=== PATIENT | female | born 1990 ===

== ENCOUNTER → 2020-08-26 15:04 | Outpatient (BNVA) | payer OTHER, SELFPAY | PROVIDERS: PCP Internal Medicine; Visit Provider Advanced Practice Midwife | DX: Z34.90 Encounter for supervision of normal pregnancy, unspecified, unspecified trimester (principal) | CPT/HCPCS: 81025; 99211 ==

== ENCOUNTER 2020-09-07 12:19 | Emergency (ER) | payer OTHER, SELFPAY ==
--- NOTE | 2020-09-07 14:37 | ED.PREGNANCY ---
HPI - General Chief complaint: Nausea/Vomiting/Diarrhea Stated complaint: vomiting - 7 wks preg Time Seen by Provider: 09/07/20 14:37 Source: patient Mode of arrival: ambulatory Limitations: no limitations History of Present Illness MD Complaint: other (nausea and vomiting) Onset (ago): week(s) Pain Consistency: intermittent Severity: moderate Relieving factors: none Exacerbating factors: none Associated symptoms: nausea and vomiting Vaginal discharge: none Vaginal bleeding: none Patient : Yes Number of Weeks : 7 OB History - Previous Pregnancies: hyperemesis care: followed by OB Related Data : 4 Para: 2 Previous Rx's Medication Instructions Recorded doxylamine succinate 25 mg PO .BID PRN #30 tab 09/07/20 promethazine 25 mg PO Q6H PRN #30 tab 09/07/20 pyridoxine (vitamin B6) 25 mg PO BID PRN #60 tab 09/07/20 Allergies Allergy/AdvReac Type Severity Reaction Status Date / Time latex [LATEX] Allergy Unknown SWELLING Unverified 08/04/20 18:38 Latex Allergy Unknown swelling Uncoded 06/02/19 00:00 Review of Systems Review of Systems: Constitutional : No Fever, No Chills ENT/Mouth : No sore throat, No Rhinorrhea Eyes: No Eye Pain, No Redness Cardiovascular : No Chest Pain, No SOB Respiratory : No Cough, No Sputum, No Wheezing Gastrointestinal : positive Nausea, pos Vomiting, No Diarrhea, no abdominal pain, Genitourinary : no irregular bleeding, No Dysuria, No Urinary Frequency, no pelvic pain Musculoskeletal : No Myalgias Skin : No rash Neuro : No Weakness, No Headache Psych : No Anxiety/Panic, No Depression All other systems reviewed and are negative [facility] Past Medical History Medical History (Updated 09/07/20 @ 15:59 by Pepper Molina DO) Hyperemesis gravidarum before end of 22 week gestation with carbohydrate depletion No known health problems : 4 Para: 2 Social History Social History (Updated 09/07/20 @ 15:02 by Pepper Molnia DO) Smoking Status: Former smoker Smoked in Last 30 Days: No Advance Directives: No Advance Directives Information Provided: Yes Physical Exam Vital Signs: Vital Signs: Vital Signs Temp Pulse Resp BP Pulse Ox 09/07/20 15:36 98.7 F 80 1 L 97/43 L 97 09/07/20 14:50 98.5 F 74 18 109/56 L 99 Body Mass Index 32.8 Appearance: Alert. Oriented X3. No acute distress. Eyes: Pupils equal, round and reactive to light. ENT: Pharynx normal. Neck: Normal inspection. Neck supple. CVS: Normal heart rate and rhythm. Pulses normal. Respiratory: No respiratory distress. Breath sounds normal. Abdomen: Soft and nontender. Skin: Skin warm and dry. Normal skin color. Normal skin turgor. Extremities: No lower extremity edema. No calf ttp Neuro: Oriented X 3. No motor deficit. No sensory deficit. Procedures Perimortem Number of Weeks : 7 MDM - OB/Uterine Contractions MDM Narrative Medical decision making narrative: 29 yo female 7 weeks no vaginal bleeding here with vomiting - prior pregnancies she had hyperemesis as well, not on any anti emetics at this time will obtain labs, lytes, hydrate x 2L given reglan and benadryl dispo per results and workup Lab Data Result diagrams: 09/07/20 15:01 09/07/20 15:01 Labs: Lab Results 09/07/20 09/07/20 09/07/20 Range/Units 15:01 15:01 15:01 WBC 8.1 (4.8-10.8) X10*3/uL RBC 4.61 (4.20-5.50) X10*6/uL Hgb 13.1 (12.0-16.0) g/dl Hct 38.7 (37-47) % MCV 83.9 (80-98) fL MCH 28.4 (27.0-33.0) pg MCHC 33.9 (31.0-35.0) g/dl RDW 12.7 (11.0-16.0) % Plt Count 362 (160-400) X10*3/uL MPV 9.6 (9.4-12.3) fL Immature Gran % (Auto) 0.5 H (0.0-0.4) % Neut % (Auto) 67.2 (45-73) % Lymph % (Auto) 23.7 (20-40) % [place] % (Auto) 7.4 (2-11) % Eos % (Auto) 1.0 (0-4) % Baso % (Auto) 0.2 (0-2) % Lymph # (Auto) 1.9 (1.2-4.9) X10*3/uL [place] # (Auto) 0.6 (0.1-1.2) X10*3/uL Eos # (Auto) 0.1 (0.0-0.4) X10*3/uL Baso # (Auto) 0.0 (0.0-0.2) X10*3/uL Abs Immat Gran (auto) 0.04 H (0.00-0.03) X10*3/uL Absolute Neuts (auto) 5.5 (2.0-8.3) X10*3/uL Absolute Nucleated RBC 0.000 (0.0-0.012) X10*3/uL Nucleated RBC % (auto) 0.0 (0.0-0.2) /100WBC Hold Blue Top SEE NOTE Sodium 135 (135-145) mmol/L Potassium 3.8 (3.3-5.1) mmol/l Chloride 102 (96-108) mmol/L Carbon Dioxide 25 (22-29) mmol/L Anion Gap 12 (12-20) BUN 10 (9-16) mg/dL Creatinine 0.64 (0.5-1.4) mg/dL Estim Creat Clear Calc 135.5 Estimated GFR > 60 Random Glucose 73 (60-115) mg/dL Calcium 8.6 (8.4-10.2) mg/dL Magnesium 2.1 (1.6-2.6) mg/dL Total Bilirubin 1.2 H (0.0-1.0) mg/dL Direct Bilirubin 0.4 (0.0-0.5) mg/dL AST 17 (5-31) U/L ALT 16 (0-31) U/L Alkaline Phosphatase 58 (39-117) U/L Total Protein 6.8 (6.5-8.0) g/dL Albumin 3.8 (3.5-5.0) g/dL Lipase 11 (8-78) U/L Beta HCG, Quant 00459 mIU/mL Urine Color Urine Appearance Urine pH (5.0-8.0) Ur Specific [place] (1.005-1.025) Urine Protein (NEG-TRACE) MG/DL Urine Glucose (UA) (NEG) MG/DL Urine Ketones (NEG) MG/DL Urine Blood (NEG) Urine Nitrite (NEG) Ur Leukocyte Esterase (NEG) 09/07/20 Range/Units 15:44 WBC (4.8-10.8) X10*3/uL RBC (4.20-5.50) X10*6/uL Hgb (12.0-16.0) g/dl Hct (37-47) % MCV (80-98) fL MCH (27.0-33.0) pg MCHC (31.0-35.0) g/dl RDW (11.0-16.0) % Plt Count (160-400) X10*3/uL MPV (9.4-12.3) fL Immature Gran % (Auto) (0.0-0.4) % Neut % (Auto) (45-73) % Lymph % (Auto) (20-40) % [place] % (Auto) (2-11) % Eos % (Auto) (0-4) % Baso % (Auto) (0-2) % Lymph # (Auto) (1.2-4.9) X10*3/uL [place] # (Auto) (0.1-1.2) X10*3/uL Eos # (Auto) (0.0-0.4) X10*3/uL Baso # (Auto) (0.0-0.2) X10*3/uL Abs Immat Gran (auto) (0.00-0.03) X10*3/uL Absolute Neuts (auto) (2.0-8.3) X10*3/uL Absolute Nucleated RBC (0.0-0.012) X10*3/uL Nucleated RBC % (auto) (0.0-0.2) /100WBC Hold Blue Top Sodium (135-145) mmol/L Potassium (3.3-5.1) mmol/l Chloride (96-108) mmol/L Carbon Dioxide (22-29) mmol/L Anion Gap (12-20) BUN (9-16) mg/dL Creatinine (0.5-1.4) mg/dL Estim Creat Clear Calc Estimated GFR Random Glucose (60-115) mg/dL Calcium (8.4-10.2) mg/dL Magnesium (1.6-2.6) mg/dL Total Bilirubin (0.0-1.0) mg/dL Direct Bilirubin (0.0-0.5) mg/dL AST (5-31) U/L ALT (0-31) U/L Alkaline Phosphatase (39-117) U/L Total Protein (6.5-8.0) g/dL Albumin (3.5-5.0) g/dL Lipase (8-78) U/L Beta HCG, Quant mIU/mL Urine Color YELLOW Urine Appearance CLEAR Urine pH 6.0 (5.0-8.0) Ur Specific [place] >= 1.030 H (1.005-1.025) Urine Protein NEG (NEG-TRACE) MG/DL Urine Glucose (UA) NEG (NEG) MG/DL Urine Ketones >=80 (NEG) MG/DL Urine Blood TRACE (NEG) Urine Nitrite NEG (NEG) Ur Leukocyte Esterase NEG (NEG) Discharge Plan Discharge Clinical Impression: Hyperemesis gravidarum Patient Disposition: Home, Self-Care Instructions: Hyperemesis Gravidarum (ED) Prescriptions: New pyridoxine (vitamin B6) 25 mg tablet 25 mg PO BID PRN (Reason: nausea vomiting) Qty: 60 RF: 0 doxylamine succinate 25 mg tablet 25 mg PO .BID PRN (Reason: nausea and vomiting) Qty: 30 RF: 0 promethazine 25 mg tablet 25 mg PO Q6H PRN (Reason: nausea and vomiting) Qty: 30 RF: 0 Referrals: Physician,None [Primary Care Provider] - 2 days (follow up with your OB) Stand Alone Forms: Work/School Release
[2020-09-07 14:50] VITALS: BP 109/56; PULSE 74; RESP 18; TEMP 36.9; O2SAT 99; BMI 32.8
[2020-09-07 15:05] LABS: MANUAL DIFF FLAG NO
[2020-09-07] MEDS: 0.9 % Sodium Chloride 1,000 ML 999 ML IVCONT ×2 (15:07)
[2020-09-07] MEDS: diphenhydrAMINE HCL 50 MG/ML VIAL 25 MG IVPUSH (15:07)
[2020-09-07] MEDS: Metoclopramide HCl 10 MG/2 ML VIAL 5 MG IVPUSH (15:07)
[2020-09-07 15:08] LABS: Basophils Percent Auto 0.2 % (0-2); Eosinophils Absolute Auto 0.1 X10*3/uL (0.0-0.4); Hematocrit 38.7 % (37-47); Hemoglobin 13.1 g/dl (12.0-16.0); Imm Gran Abs Auto 0.04 X10*3/uL (0.00-0.03); Imm Gran Pct Auto 0.5 % (0.0-0.4); Lymphocytes Absolute Auto 1.9 X10*3/uL (1.2-4.9); Lymphocytes Percent Auto 23.7 % (20-40); Mean Corpuscular HGB Conc 33.9 g/dl (31.0-35.0); Mean Corpuscular Hemoglobin 28.4 pg (27.0-33.0); Mean Corpuscular Volume 83.9 fL (80-98); Mean Platelet Volume 9.6 fL (9.4-12.3); Monocytes Absolute Auto 0.6 X10*3/uL (0.1-1.2); Monocytes Percent Auto 7.4 % (2-11); Neutrophils Absolute Auto 5.5 X10*3/uL (2.0-8.3); Neutrophils Percent Auto 67.2 % (45-73); Platelet Count 362 X10*3/uL (160-400); Red Blood Count 4.61 X10*6/uL (4.20-5.50); Red Cell Distribution Width 12.7 % (11.0-16.0); White Blood Count 8.1 X10*3/uL (4.8-10.8)
[2020-09-07 15:33] LABS: Alanine Aminotransferase 16 U/L (0-31); Albumin Level 3.8 g/dL (3.5-5.0); Alkaline Phosphatase 58 U/L (39-117); Anion Gap 12 (12-20); Aspartate Amino Transferase 17 U/L (5-31); Bilirubin Direct 0.4 mg/dL (0.0-0.5); Bilirubin Total 1.2 mg/dL (0.0-1.0); Blood Urea Nitrogen 10 mg/dL (9-16); Calcium 8.6 mg/dL (8.4-10.2); Carbon Dioxide 25 mmol/L (22-29); Chloride 102 mmol/L (96-108); Creatinine Clr Calc Pharmacy 135.5; Estimated Glomerular Filt Rate > 60; Glucose Random 73 mg/dL (60-115); Lipase 11 U/L (8-78); Magnesium 2.1 mg/dL (1.6-2.6); Potassium 3.8 mmol/l (3.3-5.1); Sodium 135 mmol/L (135-145); Total Protein 6.8 g/dL (6.5-8.0)
[2020-09-07 15:36] VITALS: BP 97/43; PULSE 80; RESP 1; TEMP 37.1; O2SAT 97
[2020-09-07 16:04] LABS: Glucose Urine UA NEG (NEG); Leukocyte Esterase Urine NEG (NEG); Nitrite Urine NEG (NEG); Specific Gravity - Urine >= 1.030 (1.005-1.025); Urine Blood TRACE (NEG); Urine Ketones >=80 MG/DL (NEG); Urine Protein NEG (NEG-TRACE)
[2020-09-07 16:07] LABS: Appearance Urine CLEAR; Color Urine YELLOW
[2020-09-07 16:07] LABS: HCG Quantitative 41370 mIU/mL
[2020-09-07 16:15] LABS: RBC Urine 0-2 /HPF (0); WBC Urine 0 /HPF (0-4)
[2020-09-07 16:16] LABS: Bacteria Urine TRACE /LPF; Squamous Epithelial Cell Urine 1+ /LPF
[2020-09-07 17:46] VITALS: BP 99/41; PULSE 80; RESP 16; TEMP 37; O2SAT 99
== END 2020-09-07 18:12 | disposition home or self-care (01) ==
PROVIDERS: Emergency Provider Emergency Medicine
DX: O21.0 Mild hyperemesis gravidarum (principal); Z3A.01 Less than 8 weeks gestation of pregnancy
CPT/HCPCS: 36415; 80048; 80076; 81001; 81003; 83690; 83735; 84702; 85025; 96361; 96374; 96375; 99284; J1200; J2765

== ENCOUNTER → 2020-09-27 10:11 | Outpatient (BNVA) | payer OTHER, SELFPAY | PROVIDERS: Visit Provider Advanced Practice Midwife | DX: Z76.89 Persons encountering health services in other specified circumstances (principal) ==

== ENCOUNTER 2020-10-07 12:44 | Outpatient (REF) | payer OTHER, SELFPAY ==
--- NOTE | 2020-10-07 13:02 | US_ITS ---
EXAMINATION: OBSTETRICAL ULTRASOUND, FIRST TRIMESTER HISTORY: 30-year-old at 12.0 weeks of gestation NT screening COMPARISON: None in this TECHNIQUE: Real time transabdominal imaging with color and M-mode Doppler. FINDINGS: A single, live IUP CRL of 56.7 mm c/w 12.2wks is noted. Heart Rate: 160 beats per minute. Normal yolk sac seen. NT was 1.1.mm. NB Present The embryo appears sonographically wnl for this GA. Both maternal ovaries are seen and appear normal. GESTATIONAL AGE: 1. Established GA: 12.0 wks 2. GA from [facility]: 12.2 wks ESTIMATED DATE OF DELIVERY: 1. Established [facility]OD[facility]: 04/21/2021 2. [facility]UN from [facility]: 04/19/2021 US/US OB 1T nuc measure IMPRESSION: 1. Single live IUP 2. Size equals dates 3. Normal nuchal translucency MFM Consultation: I reviewed the ultrasound findings along with significance of NT measurement. The NT of less than 3mm is generally reassuring. However, the sensitivity for T21 detection is only 60%. I reviewed the availability of serum aneuploidy screening which includes cell-free DNA and placental protein based tests. I discussed the sensitivity, false-positive rate, and other limitations associated with each test. I also reviewed the availability of invasive diagnostic tests that are associated small but definite risk of miscarriage. We also reviewed the differences between screening tests and diagnostic tests. After our discussion, she opted for the First trimester screening that is based on cell-free DNA or non-invasive testing (NIPT). The result will be faxed to your office in approximately 7 days. A follow up at 18 weeks for survey has been scheduled. Thank you very much for this referral. Majority of this visit was spent reviewing her care and counselling her in face to face time: Time spent 20 min.
== END 2020-10-07 12:45 | disposition home or self-care (01) ==
LOC: HO.US 12:44
PROVIDERS: Visit Provider Advanced Practice Midwife
DX: O09.299 Supervision of pregnancy with other poor reproductive or obstetric history, unspecified trimester (principal); Z13.31 Encounter for screening for depression; Z86.32 Personal history of gestational diabetes
CPT/HCPCS: 76813; 90686

== ENCOUNTER 2020-10-07 13:51 | Outpatient (REF) | payer OTHER, SELFPAY ==
[2020-10-07 14:46] LABS: Basophils Percent Auto 0.2 % (0-2); Eosinophils Absolute Auto 0.1 X10*3/uL (0.0-0.4); Eosinophils Percent Auto 1.4 % (0-4); Hematocrit 36.2 % (37-47); Imm Gran Abs Auto 0.05 X10*3/uL (0.00-0.03); Imm Gran Pct Auto 0.6 % (0.0-0.4); Lymphocytes Absolute Auto 1.7 X10*3/uL (1.2-4.9); Lymphocytes Percent Auto 20.2 % (20-40); MANUAL DIFF FLAG NO; Mean Corpuscular HGB Conc 33.1 g/dl (31.0-35.0); Mean Corpuscular Volume 84.6 fL (80-98); Mean Platelet Volume 9.7 fL (9.4-12.3); Monocytes Absolute Auto 0.6 X10*3/uL (0.1-1.2); Neutrophils Absolute Auto 6.1 X10*3/uL (2.0-8.3); Neutrophils Percent Auto 70.6 % (45-73); Platelet Count 327 X10*3/uL (160-400); Red Blood Count 4.28 X10*6/uL (4.20-5.50); White Blood Count 8.6 X10*3/uL (4.8-10.8)
[2020-10-07 15:41] LABS: Syphilis Screen Nonreactive (Nonreactive)
[2020-10-08 09:12] LABS: Rubella IgG Antibody 3.02 index
[2020-10-08 13:53] LABS: CT PCR NOT DETECTED (Not Detect.); NG PCR NOT DETECTED (Not Detect.)
[2020-10-08 14:37] LABS: Toxoplasma IgG Antibody <7.20 IU/mL; Toxoplasma IgM Antibody <8.00 AU/mL
[2020-10-10 08:11] LABS: HBsAGNum1 0.14 S/CO (0.00-0.99); Hepatitis B Surface Antigen Negative (Negative)
[2020-10-10 08:31] LABS: HIV AB/AG Nonreactive (Nonreactive); HIV Num 1 0.11 S/CO (0.00-0.99); ~HepC Num1 0.07 S/CO (0.00-0.79); ~Hepatitis C Antibody Nonreactive (Nonreactive)
== END 2020-10-07 13:52 | disposition home or self-care (01) ==
LOC: HO.LAB 13:51
PROVIDERS: Advanced Practice Midwife; Visit Provider Obstetrics & Gynecology Maternal & Fetal Medicine
DX: Z34.90 Encounter for supervision of normal pregnancy, unspecified, unspecified trimester (principal)
CPT/HCPCS: 36415; 85025; 86762; 86777; 86778; 86780; 86787; 86803; 86850; 86886; 86900; 86901; 87340; 87389; 87491; 87591; 88142

== ENCOUNTER 2020-10-24 20:05 | Emergency (ER) | payer OTHER, SELFPAY ==
[2020-10-24 20:15] VITALS: BP 136/75; PULSE 84; RESP 16; TEMP 36.6; O2SAT 99; BMI 32.8
--- NOTE | 2020-10-24 21:13 | ED.NAVMDI ---
HPI - Nausea/Vomiting/Diarrhea General Chief complaint: Nausea/Vomiting/Diarrhea Stated complaint: Vomiting/15 weeks preg Time Seen by Provider: 10/24/20 21:12 Source: patient Mode of arrival: ambulatory Limitations: no limitations History of Present Illness HPI Narrative: patient is 15 weeks with hyperemesis gravidarum been here last month for vomiting , this time vomiting for last 2 days unable to hold down anything urinated only 2 times today complaining of diffuse abdominal discomfort no vaginal bleeding no urinary complaints Related Data Home Medications Medication Instructions Recorded Confirmed prenat.vits,elsa,jwd-hlbb-vtpor 1 tab PO DAILY 09/27/20 09/27/20 Previous Rx's Medication Instructions Recorded doxylamine succinate 25 mg PO .BID PRN #30 tab 09/07/20 pyridoxine (vitamin B6) 25 mg PO BID PRN #60 tab 09/07/20 promethazine 25 mg tablet 25 mg PO Q6H PRN #30 tab 09/29/20 Allergies Allergy/AdvReac Type Severity Reaction Status Date / Time latex [LATEX] Allergy Unknown SWELLING Verified 10/07/20 14:58 Review of Systems Review of Systems: REVIEW OF SYSTEMS: Pertinent positives and negatives are stated above in the history. GEN: no fevers, chills, fatigue HEENT: no nasal congestion, sore throat, ear pain NEURO: no headache, dizziness, focal weakness PULM: no cough, shortness of breath CV: no chest pain, palpitations, LE edema ABD: no abdominal pain, , diarrhea : no dysuria, urgency, frequency SKIN: no rash ROS otherwise negative x 10 PMFSH Past Medical History Medical History Hyperemesis gravidarum before end of 22 week gestation with carbohydrate depletion No known health problems Family History Family History Mother History of PCOS Hx of endometriosis Father Hx of colon cancer, stage II Brother No problems noted. Brother No problems noted. Sister No problems noted. Maternal Grandfather Hx of diabetes mellitus Maternal Grandmother Hx of diabetes mellitus Paternal Grandfather Hx of diabetes mellitus Paternal Grandmother Hx of diabetes mellitus Social History Social History Household Members: Spouse Alcohol intake: never Smoking Status: Former smoker Smoked in Last 30 Days: Yes Use of substances other than those prescribed or required for medical reasons: No Advance Directives: No Advance Directives Information Provided: Yes service: No Current occupational status: unemployed Current occupational exposures/hazards: No Physical Exam Vital Signs: Vital Signs: Last Vital Signs Temp 98.2 F 10/24/20 21:46 Pulse 73 10/24/20 22:00 Resp 18 10/24/20 22:00 BP 120/61 10/24/20 22:00 Pulse Ox 97 10/24/20 22:00 Body Mass Index 32.8 Appearance: Alert. Oriented X3. No acute distress. Eyes: Pupils equal, round and reactive to light. ENT: Pharynx normal. Neck: Normal inspection. Neck supple. CVS: Normal heart rate and rhythm. Pulses normal. Respiratory: No respiratory distress. Breath sounds normal. Abdomen: Soft . gravid uterus bowel sounds are present no focal tenderness Skin: Skin warm and dry. Normal skin color. Normal skin turgor. Extremities: No lower extremity edema. Good range of movement Neuro: Oriented X 3. No motor deficit. No sensory deficit. Course Reevaluation(s) Reevaluation #1: patient feeling much better now taking p.o. fluids labs are stable planning discharge patient perla urine negative for UTI MDM - Nausea/Vomiting/Diarrhea Lab Data Result diagrams: 10/24/20 21:57 10/24/20 21:57 Labs: Lab Results 10/24/20 10/24/20 10/24/20 Range/Units 21:57 21:57 23:49 WBC 11.0 H (4.8-10.8) X10*3/uL RBC 4.55 (4.20-5.50) X10*6/uL Hgb 12.8 (12.0-16.0) g/dl Hct 37.8 (37-47) % MCV 83.1 (80-98) fL MCH 28.1 (27.0-33.0) pg MCHC 33.9 (31.0-35.0) g/dl RDW 13.1 (11.0-16.0) % Plt Count 357 (160-400) X10*3/uL MPV 9.7 (9.4-12.3) fL Immature Gran % (Auto) 0.3 (0.0-0.4) % Neut % (Auto) 79.0 H (45-73) % Lymph % (Auto) 14.9 L (20-40) % [place] % (Auto) 4.9 (2-11) % Eos % (Auto) 0.6 (0-4) % Baso % (Auto) 0.3 (0-2) % Lymph # (Auto) 1.6 (1.2-4.9) X10*3/uL [place] # (Auto) 0.5 (0.1-1.2) X10*3/uL Eos # (Auto) 0.1 (0.0-0.4) X10*3/uL Baso # (Auto) 0.0 (0.0-0.2) X10*3/uL Abs Immat Gran (auto) 0.03 (0.00-0.03) X10*3/uL Absolute Neuts (auto) 8.7 H (2.0-8.3) X10*3/uL Absolute Nucleated RBC 0.000 (0.0-0.012) X10*3/uL Nucleated RBC % (auto) 0.0 (0.0-0.2) /100WBC Sodium 138 (135-145) mmol/L Potassium 4.2 (3.3-5.1) mmol/l Chloride 102 (96-108) mmol/L Carbon Dioxide 24 (22-29) mmol/L Anion Gap 16 (12-20) BUN 7 L (9-16) mg/dL Creatinine 0.56 (0.5-1.4) mg/dL Estim Creat Clear Calc 153.4 Estimated GFR > 60 Random Glucose 78 (60-115) mg/dL Calcium 9.0 (8.4-10.2) mg/dL Total Bilirubin 0.4 (0.0-1.0) mg/dL Direct Bilirubin 0.2 (0.0-0.5) mg/dL AST 19 (5-31) U/L ALT 9 (0-31) U/L Alkaline Phosphatase 50 (39-117) U/L Total Protein 7.0 (6.5-8.0) g/dL Albumin 3.7 (3.5-5.0) g/dL Lipase 45 (8-78) U/L Urine Color DARK YELLOW Urine Appearance HAZY Urine pH 7.0 (5.0-8.0) Ur Specific [place] 1.020 (1.005-1.025) Urine Protein NEG (NEG-TRACE) MG/DL Urine Glucose (UA) NEG (NEG) MG/DL Urine Ketones >=80 (NEG) MG/DL Urine Blood TRACE (NEG) Urine Nitrite NEG (NEG) Ur Leukocyte Esterase NEG (NEG) Urine RBC 15-29 H (0) /HPF Urine WBC 0-2 (0-4) /HPF Ur Squamous Epith Cells 2+ /LPF Urine Bacteria 2+ /LPF Urine Mucus 3+ /LPF Discharge Plan Discharge Prescriptions: No Action pyridoxine (vitamin B6) 25 mg tablet 25 mg PO BID PRN (Reason: nausea vomiting) Qty: 60 RF: 0 doxylamine succinate 25 mg tablet 25 mg PO .BID PRN (Reason: nausea and vomiting) Qty: 30 RF: 0 prenat.vits,elsa,vjx-hdvz-buhxw Tablet 1 tab PO DAILY RF: 0 promethazine 25 mg tablet 25 mg PO Q6H PRN (Reason: nausea and vomiting) Qty: 30 RF: 0
[2020-10-24 21:46] VITALS: BP 122/81; PULSE 86; RESP 18; TEMP 36.8; O2SAT 98
[2020-10-24 22:00] VITALS: BP 120/61; PULSE 73; RESP 18; O2SAT 97
[2020-10-24] MEDS: 0.9 % Sodium Chloride 1,000 ML 999 ML IVCONT (22:00)
[2020-10-24 22:02] LABS: MANUAL DIFF FLAG NO
[2020-10-24 22:03] LABS: Basophils Percent Auto 0.3 % (0-2); Eosinophils Absolute Auto 0.1 X10*3/uL (0.0-0.4); Eosinophils Percent Auto 0.6 % (0-4); Hematocrit 37.8 % (37-47); Hemoglobin 12.8 g/dl (12.0-16.0); Imm Gran Abs Auto 0.03 X10*3/uL (0.00-0.03); Imm Gran Pct Auto 0.3 % (0.0-0.4); Lymphocytes Absolute Auto 1.6 X10*3/uL (1.2-4.9); Lymphocytes Percent Auto 14.9 % (20-40); Mean Corpuscular HGB Conc 33.9 g/dl (31.0-35.0); Mean Corpuscular Hemoglobin 28.1 pg (27.0-33.0); Mean Corpuscular Volume 83.1 fL (80-98); Mean Platelet Volume 9.7 fL (9.4-12.3); Monocytes Absolute Auto 0.5 X10*3/uL (0.1-1.2); Monocytes Percent Auto 4.9 % (2-11); Neutrophils Absolute Auto 8.7 X10*3/uL (2.0-8.3); Platelet Count 357 X10*3/uL (160-400); Red Blood Count 4.55 X10*6/uL (4.20-5.50); Red Cell Distribution Width 13.1 % (11.0-16.0)
[2020-10-24] MEDS: ondansetron HCL 4 MG/2 ML VIAL IVPUSH (22:03)
--- NOTE | 2020-10-24 22:05 | PC.NURSE ---
pt is aware we need a urine sample. ivf infusing and waiting for need to void.
[2020-10-24 22:34] LABS: Alanine Aminotransferase 9 U/L (0-31); Albumin Level 3.7 g/dL (3.5-5.0); Alkaline Phosphatase 50 U/L (39-117); Anion Gap 16 (12-20); Aspartate Amino Transferase 19 U/L (5-31); Bilirubin Direct 0.2 mg/dL (0.0-0.5); Bilirubin Total 0.4 mg/dL (0.0-1.0); Blood Urea Nitrogen 7 mg/dL (9-16); Carbon Dioxide 24 mmol/L (22-29); Chloride 102 mmol/L (96-108); Creatinine Clr Calc Pharmacy 153.4; Estimated Glomerular Filt Rate > 60; Glucose Random 78 mg/dL (60-115); Lipase 45 U/L (8-78); Potassium 4.2 mmol/l (3.3-5.1); Sodium 138 mmol/L (135-145)
[2020-10-25] VITALS: BP 113/59; PULSE 76; RESP 18; TEMP 36.8; O2SAT 98
[2020-10-25 00:01] LABS: Glucose Urine UA NEG (NEG); Leukocyte Esterase Urine NEG (NEG); Nitrite Urine NEG (NEG); Urine Blood TRACE (NEG); Urine Ketones >=80 MG/DL (NEG); Urine Protein NEG (NEG-TRACE)
[2020-10-25 00:02] LABS: Appearance Urine HAZY; Color Urine DARK YELLOW
[2020-10-25 00:07] LABS: Bacteria Urine 2+ /LPF; Squamous Epithelial Cell Urine 2+ /LPF; WBC Urine 0-2 /HPF (0-4)
[2020-10-25 00:08] LABS: Mucus Urine 3+ /LPF
== END 2020-10-25 01:41 | disposition home or self-care (01) ==
PROVIDERS: Emergency Provider Internal Medicine
DX: O21.1 Hyperemesis gravidarum with metabolic disturbance (principal); Z3A.15 15 weeks gestation of pregnancy
CPT/HCPCS: 36415; 80048; 80076; 81001; 81003; 83690; 85025; 96361; 96374; 99284; J2405

== ENCOUNTER → 2020-11-04 10:50 | Outpatient (BNVA) | payer OTHER, SELFPAY | PROVIDERS: Visit Provider Advanced Practice Midwife | DX: Z76.89 Persons encountering health services in other specified circumstances (principal) ==

== ENCOUNTER 2020-11-25 13:16 | Outpatient (REF) | payer OTHER, SELFPAY ==
--- NOTE | 2020-11-25 13:20 | US_ITS ---
EXAMINATION: US OBSTETRICAL CLINICAL INFORMATION: 30-year-old at 19.0 weeks of gestation Suspected anomaly COMPARISON: 10/07/2020 TECHNIQUE: Real-time transabdominal ultrasound was performed using C1-5 megahertz transducer. FINDINGS: A single, active, fetus is seen in transverse presentation. The placenta is posterior without previa, and the amniotic fluid volume is wnl. MEASUREMENTS: 1. Biparietal Diameter: 4.2 cm; 18.6 wks 2. Occipital Frontal Diameter: 5.8 cm 3. Head Circumference: 16.3 cm; 19.1 wks 4. Abdominal Circumference: 14.6 cm; 20.0 wks 5. Femur Length: 3.2 cm; 19.6 wks 6. Humerus Length: 3.1 cm; 20.1 wks 7. Tibia Length: 2.7 cm; 19.4 wks 8. Ulna Length: 2.8 cm; 20.4 wks 9. Lateral ventricle: 0.6 cm 10. Cerebellum: 1.9 cm; 19.6 wks 11. Cisterna Magna: 0.4 cm 12. Nuchal Fold: 2.6 mm 13. Heart Rate: 152 beats per minute Rt ovary: normal Lt ovary: normal Cervical length 3.8 cm on T/A. GESTATIONAL AGE: 1. Established GA: 19.0 wks 2. GA from [facility]: 19.4 wks ESTIMATED DATE OF DELIVERY: 1. Established ABIODUN: 04/21/2021 2. ABIODUN from [facility]: 04/17/2021 ANATOMY: The visualized anatomy includes but not limited to: 1. Cranium: Normal 2. Intracranial anatomy: cavum septum pellucidi, lateral ventricles, choroid plexus, cerebellum, posterior fossa, third and fourth ventricles. 3. face: orbits, lip/palate, profile, nasal bone 4. Heart: four-chamber view of the heart, ventricular septum, foramen ovale, pulmonary vein, left and right outflow tracts, three-vessel view, 3 vessel trachea view, aortic and ductal arches, situs.. 5. Diaphragm: Normal 6. Abdominal wall: Normal 7. Cord Insertion: Normal 8. Spine: Cervical, thoracic, lumbar, sacral. 9. Stomach: Normal size and shape 10. Right Kidney: Normal 11. Left Kidney: Normal 12. 3 vessel cord: Normal 13. Upper extremity: Open hands, fifth digit. 14. Lower extremity: Tibia, fibula, bilateral feet. 15. Bladder: Normal 16. Genitalia: US/US OB /maternal detail IMPRESSION: 1. Single, living, intrauterine with appropriate biometry. 2. Normal survey DISCUSSION: I reviewed today's ultrasound findings. We discussed the limitations of ultrasound in diagnosing aneuploidy and other congenital abnormalities. I reviewed the differences between screening test and diagnostic test. Amniocentesis was discussed and declined. She was informed that the baseline incidence of congenital abnormalities is approximately 3-5%. Not all these conditions are diagnosable in utero. RECOMMENDATIONS: Thank you for allowing me to participate in her care. Visiting time 20 (2,8,10) minutes. Majority of this visit was spent reviewing and discussing her care.
== END 2020-11-25 13:17 | disposition home or self-care (01) ==
LOC: HO.US 13:16
PROVIDERS: Visit Provider Advanced Practice Midwife
DX: O26.892 Other specified pregnancy related conditions, second trimester (principal); Z36.3 Encounter for antenatal screening for malformations; O35.9XX0 Maternal care for (suspected) fetal abnormality and damage, unspecified, not applicable or unspecified; Z3A.19 19 weeks gestation of pregnancy
CPT/HCPCS: 76811

== ENCOUNTER → 2020-12-02 12:20 | Outpatient (BNVA) | payer OTHER, SELFPAY | PROVIDERS: PCP Family Medicine; Visit Provider Advanced Practice Midwife | DX: Z13.89 Encounter for screening for other disorder (principal) | CPT/HCPCS: 99212 ==

== ENCOUNTER → 2020-12-15 13:47 | Outpatient (BNVA) | payer OTHER, SELFPAY | PROVIDERS: PCP Family Medicine; Visit Provider Advanced Practice Midwife | DX: O09.92 Supervision of high risk pregnancy, unspecified, second trimester (principal); O24.419 Gestational diabetes mellitus in pregnancy, unspecified control | CPT/HCPCS: 81003; 99212 ==

== ENCOUNTER → 2021-01-17 14:23 | Outpatient (BNVA) | payer OTHER, SELFPAY | PROVIDERS: PCP Family Medicine; Visit Provider Obstetrics & Gynecology | DX: O09.92 Supervision of high risk pregnancy, unspecified, second trimester (principal); O09.299 Supervision of pregnancy with other poor reproductive or obstetric history, unspecified trimester; Z86.32 Personal history of gestational diabetes | CPT/HCPCS: 81003; 99212 ==

== ENCOUNTER → 2021-01-31 14:47 | Outpatient (BNVA) | payer OTHER, SELFPAY | PROVIDERS: PCP Family Medicine; Visit Provider Advanced Practice Midwife | DX: Z34.93 Encounter for supervision of normal pregnancy, unspecified, third trimester (principal); Z3A.28 28 weeks gestation of pregnancy | CPT/HCPCS: 81003; 99212 ==

== ENCOUNTER → 2021-02-14 14:50 | Outpatient (BNVA) | payer OTHER, SELFPAY | PROVIDERS: PCP Family Medicine; Visit Provider Advanced Practice Midwife | DX: Z3A.30 30 weeks gestation of pregnancy (principal) | CPT/HCPCS: 81003; 99212 ==

== ENCOUNTER → 2021-03-09 13:29 | Outpatient (BNVA) | payer OTHER, SELFPAY | PROVIDERS: PCP Family Medicine; Visit Provider Advanced Practice Midwife | DX: Z34.93 Encounter for supervision of normal pregnancy, unspecified, third trimester (principal); Z3A.34 34 weeks gestation of pregnancy | CPT/HCPCS: 81003; 99212 ==

== ENCOUNTER 2021-03-17 14:35 | Outpatient (REF) | payer OTHER, SELFPAY ==
--- NOTE | ~2021-03-17 | US_ITS ---
EXAMINATION: OBSTETRICAL ULTRASOUND, Follow up HISTORY: 30-year-old at 35.0 weeks of gestation Unstable lie Size date discrepancy COMPARISON: 11/25/2020 TECHNIQUE: Real time transabdominal imaging with color and M-mode Doppler. PRESENTATION: Vertex PLACENTA LOCATION: Posterior without previa AMNIOTIC FLUID: MIGUEL 17.6 cm MEASUREMENTS: 1. Biparietal Diameter: 8.5 cm; 34.3 wks 2. Head Circumference: 32.52 cm; 36.6 wks 3. Abdominal Circumference: 30.2 cm; 34.1 wks 4. Femur Length: 6.7 cm; 34.3 wks 5. Heart Rate: 124 beats per minute WEIGHT: EFW: 2445 grams (5 lbs 6 oz) -- 33 %. BIOPHYSICAL PROFILE: Motion: 2 Tone: 2 Breathin Amniotic Fluid: 2 Total score: 8/8 GESTATIONAL AGE: 1. Established GA: 35.0 wks 2. GA from [facility]: 35.0 wks ESTIMATED DATE OF DELIVERY: 1. Established ABIODUN: 04/21/2021 2. ABIODUN from [facility]: 04/21/2020 US/US OB follow up IMPRESSION: 1. Single active fetus is in vertex presentation 2. Size equals dates 3. Reassuring biophysical profile Thank you very much for this referral. This note was generated with a voice recognition program. Please excuse any errors which may have been overlooked during my review of this note. Sometimes these errors may affect the content or meaning of a given sentence.
== END 2021-03-17 14:36 | disposition home or self-care (01) ==
LOC: HO.US 14:35
PROVIDERS: PCP Family Medicine; Visit Provider Advanced Practice Midwife
DX: O32.0XX0 Maternal care for unstable lie, not applicable or unspecified (principal); O26.843 Uterine size-date discrepancy, third trimester; Z3A.28 28 weeks gestation of pregnancy
CPT/HCPCS: 76816

== ENCOUNTER 2021-03-23 14:39 | Outpatient (REF) | payer OTHER, SELFPAY ==
[2021-03-24 09:54] LABS: CT PCR NOT DETECTED (Not Detect.); NG PCR NOT DETECTED (Not Detect.)
== END 2021-03-23 14:40 | disposition home or self-care (01) ==
LOC: HO.LAB 14:39
PROVIDERS: PCP Family Medicine; Visit Provider Advanced Practice Midwife
DX: Z34.93 Encounter for supervision of normal pregnancy, unspecified, third trimester (principal)
CPT/HCPCS: 87081; 87491; 87591; 99212

== ENCOUNTER → 2021-03-30 13:16 | Outpatient (BNVA) | payer OTHER, SELFPAY | PROVIDERS: PCP Family Medicine; Visit Provider Advanced Practice Midwife | DX: Z34.93 Encounter for supervision of normal pregnancy, unspecified, third trimester (principal); Z3A.37 37 weeks gestation of pregnancy | CPT/HCPCS: 81003; 99212 ==

== ENCOUNTER → 2021-04-06 13:20 | Outpatient (BNVA) | payer OTHER, SELFPAY | PROVIDERS: PCP Family Medicine; Visit Provider Advanced Practice Midwife | DX: Z34.93 Encounter for supervision of normal pregnancy, unspecified, third trimester (principal) | CPT/HCPCS: 81003; 99212 ==

== ENCOUNTER → 2021-05-12 10:30 | Outpatient (BNVA) | payer OTHER, SELFPAY | PROVIDERS: Visit Provider Obstetrics & Gynecology | DX: Z39.2 Encounter for routine postpartum follow-up (principal) | CPT/HCPCS: 99212 ==

== ENCOUNTER 2021-05-12 10:56 | Emergency (ER) | payer OTHER, SELFPAY ==
--- NOTE | ~2021-05-12 | CT_ITS ---
EXAMINATION: CT ANGIOGRAM OF THE CHEST WITH AND WITHOUT CONTRAST (CT PULMONARY ANGIOGRAM FOR PE) CLINICAL INFORMATION: Reason for Exam post dyspnea r/o PE COMPARISON: Previous chest x-ray May 2018 TECHNIQUE: Prior to contrast administration, noncontrast localization images were obtained. Subsequently, multidetector volumetric imaging was performed from the thoracic inlet to below the diaphragms following the administration of 65 mL Omnipaque 350 intravenous contrast. No contrast reaction reported Sagittal, coronal, and MIP oblique sagittal reformatted images were obtained on the CT workstation, uploaded to PACS, and reviewed. This CT examination was performed using dose optimization techniques as appropriate, variously including the following: *Automated exposure control *Adjustment of mA and/or kV according to patient size (this includes techniques or standardized protocols for targeted exams where dose is matched to indication/reason for exam; i.e. extremities or head) *Use of iterative reconstruction technique Total exam dose-length product 363 mGy-cm FINDINGS: QUALITY OF STUDY/CONTRAST BOLUS: Satisfactory. PULMONARY ARTERIES: No central or segmental pulmonary emboli. THORACIC AORTA: No aneurysm or dissection. LUNG: No focal consolidation, nodules or masses. PLEURA: No pleural effusion or pneumothorax. MEDIASTINUM: The heart is upper normal in size.. No pericardial effusion. No hilar or mediastinal lymphadenopathy. No evidence of septal bowing or right heart strain. CHEST WALL/AXILLA: No axillary or internal mammary lymphadenopathy. OSSEOUS STRUCTURES: No acute or suspicious osseous abnormality. UPPER ABDOMEN: Unremarkable. No reflux of contrast into the hepatic veins to suggest elevated right heart pressures. CT/CT angio chest PE protocol IMPRESSION: No evidence of pulmonary embolism. VTE: negative
[2021-05-12 11:06] VITALS: BP 114/62; PULSE 82; RESP 16; TEMP 37.1; O2SAT 99; BMI 32.9
--- NOTE | 2021-05-12 11:09 | ECG_ITS ---
Test Reason : SOB Blood Pressure : / mmHG Vent. Rate : 082 BPM Atrial Rate : 082 BPM P-R Int : 178 ms QRS Dur : 082 ms QT Int : 380 ms P-R-T Axes : 062 042 054 degrees QTc Int : 443 ms Normal sinus rhythm Normal ECG When compared with ECG of 22-MAY-2018 12:45, T wave amplitude has increased in Anterior leads Referred By: Pepper Molina Electronically Signed By:Jasvir Aguila
--- NOTE | 2021-05-12 11:15 | ED.SOB ---
HPI - SOB/Dyspnea General Chief Complaint: General Medical Stated Complaint: sob leg swelling Time Seen by Provider: 05/12/21 11:08 Source: patient Mode of arrival: ambulatory (came from OB clinic) Limitations: no limitations History of Present Illness HPI Narrative: 30 yo female 4 weeks post vaginal delivery, bottle/breast feeding reports overall feeling dyspnea on exertion, blurred vision at times, chest pain, sent by OB office MD elicited complaint: shortness of breath and chest pain Pertinent past history: other (4 weeks post - denies PP hemorrhage) Onset (ago): week(s) (1) Context: occurred during exertion Timing: intermittent Severity: moderate Exacerbating factors: exertion Relieving factors: rest Known history of: asthma Associated symptoms: chest pain, lower extremity pain and palpitations Treatment prior to arrival: none Related Data Home Medications Medication Instructions Recorded Confirmed prenat.vits,elsa,ere-sjrg-[id number] 1 tab PO DAILY 09/27/20 03/09/21 Previous Rx's Medication Instructions Recorded aspirin 81 mg tablet,delayed 162 mg PO DAILY 30 Days #60 tab 11/14/20 release blood-glucose meter #1 ea 12/16/20 lancets 28 gauge #100 ea 12/16/20 metronidazole 0.75 % vaginal gel 1 appful VAGINAL BEDTIME 5 Days 03/07/21 #70 g Allergies Allergy/AdvReac Type Severity Reaction Status Date / Time latex [LATEX] Allergy Unknown SWELLING Verified 05/12/21 10:43 Review of Systems Review of Systems: Constitutional : No Fever, No Chills ENT/Mouth : No sore throat, No Rhinorrhea, No Swallowing Difficulty Eyes: No Eye Pain, No Swelling, No Redness, intermittent blurred vision at times Cardiovascular : pos Chest Pain, positive SOB, No Orthopnea, positive Edema Respiratory : No Cough, No Sputum, No Wheezing, positive dyspnea Gastrointestinal : No Nausea, No Vomiting, No Diarrhea, No abdominal Pain, No Hematochezia, No Melena Genitourinary : No Dysuria, No Urinary Frequency, No Hematuria Musculoskeletal : No joint pain, No Myalgias Skin : No Skin Lesions, No rash Neuro : No Weakness, No Numbness, No Dizziness, No Headache Psych : No Anxiety/Panic, No Depression Heme/Lymph: No Bruising, No Lymphadenopathy Endocrine : No Polyuria, No Polydipsia All other systems reviewed and are negative [facility] Past Medical History Attestation statement: The following information was validated with the patient. Medical History Hyperemesis gravidarum before end of 22 week gestation with carbohydrate depletion No known health problems Family History Family History Mother History of PCOS Hx of endometriosis Father Hx of colon cancer, stage II Brother No problems noted. Brother No problems noted. Sister No problems noted. Maternal Grandfather Hx of diabetes mellitus Maternal Grandmother Hx of diabetes mellitus Paternal Grandfather Hx of diabetes mellitus Paternal Grandmother Hx of diabetes mellitus Social History Social History Household Members: Spouse Alcohol intake: never Advance Directives: Yes Advance Directives Information Provided: Yes Advance Directives on File: No Patient : No service: No Current occupational status: unemployed Current occupational exposures/hazards: No Physical Exam Vital Signs: Vital Signs: Last Vital Signs Temp 98.8 F 05/12/21 11:06 Pulse 70 05/12/21 12:10 Resp 14 05/12/21 12:10 BP 97/59 L 05/12/21 12:10 Pulse Ox 98 05/12/21 12:10 Body Mass Index 32.9 Appearance: Alert. Oriented X3. No acute distress. Eyes: Pupils equal, round and reactive to light. ENT: Pharynx normal. Neck: Normal inspection. Neck supple. CVS: Normal heart rate and rhythm. Pulses normal. Respiratory: No respiratory distress. Breath sounds faint end exp wheezes noted upper lobes, no rales Abdomen: Soft and nontender. Skin: Skin warm and dry. Normal skin color. Normal skin turgor. Extremities: No lower extremity edema. No calf ttp ttp in upper thighs on exam but no swelling noted Neuro: Oriented X 3. No motor deficit. No sensory deficit. Course Course Course Narrative: so far labs, repeat BP stable and reassuring no signs of preeclampsia or HELLP, CTA pending no acute findings, stable for DC MDM - SOB/Dyspnea MDM Narrative Medical decision making narrative: 30 yo female with hx of 4 weeks ago - c/o recent dyspnea, CA, intermittent chest pain, leg cramps, not sleeping, feels she has blurry vision at times, sent by OB office, she has no sig LE edema, no RUQ pain, normal neuro exam, other than some faint wheezing noted no rales, no hypoxia, she has a normal BP - will obtain EKG, BNP, lytes, CBC, CTA for PE given symptoms, she does not appear fluid overloaded, given normal BP range doubt preeclampsia, INH ordered for hx of childhood asthma and wheezes heard, overall not toxic Lab Data Result diagrams: 05/12/21 11:21 05/12/21 11:21 Labs: Lab Results 05/12/21 05/12/21 05/12/21 Range/Units 11:21 11:21 11:21 WBC 6.1 (4.8-10.8) X10*3/uL RBC 4.54 (4.20-5.50) X10*6/uL Hgb 12.6 (12.0-16.0) g/dl Hct 38.0 (37-47) % MCV 83.7 (80-98) fL MCH 27.8 (27.0-33.0) pg MCHC 33.2 (31.0-35.0) g/dl RDW 14.4 (11.0-16.0) % Plt Count 382 (160-400) X10*3/uL MPV 9.7 (9.4-12.3) fL Immature Gran % (Auto) 0.5 H (0.0-0.4) % Neut % (Auto) 57.9 (45-73) % Lymph % (Auto) 30.0 (20-40) % [place] % (Auto) 8.8 (2-11) % Eos % (Auto) 2.3 (0-4) % Baso % (Auto) 0.5 (0-2) % Lymph # (Auto) 1.8 (1.2-4.9) X10*3/uL [place] # (Auto) 0.5 (0.1-1.2) X10*3/uL Eos # (Auto) 0.1 (0.0-0.4) X10*3/uL Baso # (Auto) 0.0 (0.0-0.2) X10*3/uL Abs Immat Gran (auto) 0.03 (0.00-0.03) X10*3/uL Absolute Neuts (auto) 3.6 (2.0-8.3) X10*3/uL Absolute Nucleated RBC 0.000 (0.0-0.012) X10*3/uL Nucleated RBC % (auto) 0.0 (0.0-0.2) /100WBC PT 11.2 (10.8-13.0) SEC INR 0.9 (0.9-1.1) APTT 34.6 (24.1-38.0) SEC Sodium 139 (135-145) mmol/L Potassium 4.5 (3.3-5.1) mmol/L Chloride 108 (96-108) mmol/L Carbon Dioxide 26 (22-29) mmol/L Anion Gap 10 L (12-20) BUN 14 D (9-16) mg/dL Creatinine 0.69 (0.5-1.4) mg/dL Estim Creat Clear Calc 124.9 Estimated GFR > 60 Random Glucose 94 (60-115) mg/dL Calcium 9.0 (8.4-10.2) mg/dL Magnesium 2.2 (1.6-2.6) mg/dL Total Bilirubin 0.5 (0.0-1.0) mg/dL Direct Bilirubin 0.2 (0.0-0.5) mg/dL AST 19 (5-31) U/L ALT 15 (0-31) U/L Alkaline Phosphatase 85 D (39-117) U/L Troponin I High Sens (<3.5-17.0) ng/L B-Natriuretic Peptide (<100) pg/mL Total Protein 6.6 (6.5-8.0) g/dL Albumin 3.7 (3.5-5.0) g/dL COVID-19 (JAMES) (Negative) COVID-19 Clin Com 05/12/21 05/12/21 Range/Units 11:21 11:22 WBC (4.8-10.8) X10*3/uL RBC (4.20-5.50) X10*6/uL Hgb (12.0-16.0) g/dl Hct (37-47) % MCV (80-98) fL MCH (27.0-33.0) pg MCHC (31.0-35.0) g/dl RDW (11.0-16.0) % Plt Count (160-400) X10*3/uL MPV (9.4-12.3) fL Immature Gran % (Auto) (0.0-0.4) % Neut % (Auto) (45-73) % Lymph % (Auto) (20-40) % [place] % (Auto) (2-11) % Eos % (Auto) (0-4) % Baso % (Auto) (0-2) % Lymph # (Auto) (1.2-4.9) X10*3/uL [place] # (Auto) (0.1-1.2) X10*3/uL Eos # (Auto) (0.0-0.4) X10*3/uL Baso # (Auto) (0.0-0.2) X10*3/uL Abs Immat Gran (auto) (0.00-0.03) X10*3/uL Absolute Neuts (auto) (2.0-8.3) X10*3/uL Absolute Nucleated RBC (0.0-0.012) X10*3/uL Nucleated RBC % (auto) (0.0-0.2) /100WBC PT (10.8-13.0) SEC INR (0.9-1.1) APTT (24.1-38.0) SEC Sodium (135-145) mmol/L Potassium (3.3-5.1) mmol/L Chloride (96-108) mmol/L Carbon Dioxide (22-29) mmol/L Anion Gap (12-20) BUN (9-16) mg/dL Creatinine (0.5-1.4) mg/dL Estim Creat Clear Calc Estimated GFR Random Glucose (60-115) mg/dL Calcium (8.4-10.2) mg/dL Magnesium (1.6-2.6) mg/dL Total Bilirubin (0.0-1.0) mg/dL Direct Bilirubin (0.0-0.5) mg/dL AST (5-31) U/L ALT (0-31) U/L Alkaline Phosphatase (39-117) U/L Troponin I High Sens < 3.5 (<3.5-17.0) ng/L B-Natriuretic Peptide < 10 (<100) pg/mL Total Protein (6.5-8.0) g/dL Albumin (3.5-5.0) g/dL COVID-19 (JAMES) Negative (Negative) COVID-19 Clin Com See Note ECG Data Attestation: I personally reviewed and interpreted this ECG as follows: ECG interpretation date: 05/12/21 ECG interpretation time: 11:26 Interpretation: Rate: 82 Rhythm: NSR Helen: normal Normal P waves. Normal SIA. Normal QRS complex. ST T wave : normal no acute ischemia qTC: normal prior studies: no acute ischemia The study has been interpreted contemporaneously by me. . Discharge Plan Discharge Clinical Impression: Shortness of breath Patient Disposition: Home, Self-Care Instructions: Dyspnea (ED) Additional Instructions: return to ED for any worsening symptoms or concerns labs and PE study within normal limits you can use INHALER 2 puffs every 4 hours for cough, wheezing shortness of breath Prescriptions: No Action aspirin 81 mg tablet,delayed release (DR/EC) 162 mg PO DAILY 30 Days Qty: 60 RF: 11 metronidazole [Metrogel Vaginal] 0.75 % gel 1 appful vaginal BEDTIME 5 Days Qty: 70 RF: 0 prenat.vits,elsa,[id number]-[id number]-[id number] Tablet 1 tab PO DAILY RF: 0 (DME) blood-glucose meter [FreeStyle [place] Lite] Kit See Rx Instructions miscellaneous .MEDSUPPLY Qty: 1 RF: 0 (DME) lancets [FreeStyle Lancets] 28 gauge misc See Rx Instructions .MEDSUPPLY Qty: 100 RF: 0 Boostrix Tdap 2.5-8-5 Lf-mcg-Lf/0.5mL syringe 0.5 ml IM ONCE Qty: 0.5 RF: 0 Referrals: Tyrone Simon MD [Primary Care Provider] - 2 days (Saturday if not better)
[2021-05-12 11:28] LABS: MANUAL DIFF FLAG NO
[2021-05-12 11:33] LABS: Basophils Percent Auto 0.5 % (0-2); Eosinophils Absolute Auto 0.1 X10*3/uL (0.0-0.4); Eosinophils Percent Auto 2.3 % (0-4); Hemoglobin 12.6 g/dl (12.0-16.0); Imm Gran Abs Auto 0.03 X10*3/uL (0.00-0.03); Imm Gran Pct Auto 0.5 % (0.0-0.4); Lymphocytes Absolute Auto 1.8 X10*3/uL (1.2-4.9); Mean Corpuscular HGB Conc 33.2 g/dl (31.0-35.0); Mean Corpuscular Hemoglobin 27.8 pg (27.0-33.0); Mean Corpuscular Volume 83.7 fL (80-98); Mean Platelet Volume 9.7 fL (9.4-12.3); Monocytes Absolute Auto 0.5 X10*3/uL (0.1-1.2); Monocytes Percent Auto 8.8 % (2-11); Neutrophils Absolute Auto 3.6 X10*3/uL (2.0-8.3); Neutrophils Percent Auto 57.9 % (45-73); Platelet Count 382 X10*3/uL (160-400); Red Blood Count 4.54 X10*6/uL (4.20-5.50); Red Cell Distribution Width 14.4 % (11.0-16.0); White Blood Count 6.1 X10*3/uL (4.8-10.8)
[2021-05-12 11:36] LABS: INTERNATIONAL NORM RATIO 0.9 (0.9-1.1); Prothrombin Time 11.2 SEC (10.8-13.0)
[2021-05-12 11:39] LABS: Partial Thromboplastin Time 34.6 SEC (24.1-38.0)
[2021-05-12] MEDS: Albuterol Sulfate 90 MCG 8 GM INHALER 2 PUFF INHALE (11:42)
[2021-05-12 11:45] VITALS: PULSE 71; O2SAT 99
[2021-05-12 11:49] LABS: Alanine Aminotransferase 15 U/L (0-31); Albumin Level 3.7 g/dL (3.5-5.0); Alkaline Phosphatase 85 U/L (39-117); Aspartate Amino Transferase 19 U/L (5-31); Bilirubin Direct 0.2 mg/dL (0.0-0.5); Bilirubin Total 0.5 mg/dL (0.0-1.0); Magnesium 2.2 mg/dL (1.6-2.6); Total Protein 6.6 g/dL (6.5-8.0)
[2021-05-12 11:50] LABS: COVID-19 Test Negative (Negative)
[2021-05-12 11:55] LABS: B Type Natriuretic Peptide < 10 pg/mL (<100); Troponin-I High Sensitivity < 3.5 ng/L (<3.5-17.0)
[2021-05-12 12:10] VITALS: BP 97/59; PULSE 70; RESP 14; O2SAT 98
[2021-05-12 12:10] LABS: Anion Gap 10 (12-20); Blood Urea Nitrogen 14 mg/dL (9-16); Carbon Dioxide 26 mmol/L (22-29); Chloride 108 mmol/L (96-108); Creatinine Clr Calc Pharmacy 124.9; Estimated Glomerular Filt Rate > 60; Glucose Random 94 mg/dL (60-115); Potassium 4.5 mmol/L (3.3-5.1); Sodium 139 mmol/L (135-145)
[2021-05-12] MEDS: iohexoL 350 MG/ML 100 ML INFUS..BTL 65 ML IV (14:02)
[2021-05-12 14:46] VITALS: BP 115/60
== END 2021-05-12 14:53 | disposition home or self-care (01) ==
PROVIDERS: Emergency Provider Emergency Medicine; PCP Family Medicine
DX: O90.89 Other complications of the puerperium, not elsewhere classified (principal); R06.02 Shortness of breath; Z20.822 Contact with and (suspected) exposure to COVID-19
CPT/HCPCS: 36415; 71275; 80048; 80076; 83735; 83880; 84484; 85025; 85610; 85730; 87635; 93005; 94640; 94664; 99284; Q9967

== ENCOUNTER 2021-10-20 10:18 | Outpatient (REF) | payer OTHER, SELFPAY ==
[2021-10-20 13:53] LABS: Influenza A PCR NEGATIVE (Negative); Influenza B PCR NEGATIVE (Negative); Resp Syncy Virus RNA Qual PCR NEGATIVE (Negative); SARS COV2 PCR INHOUSE NEGATIVE (Negative)
== END 2021-10-20 10:19 | disposition home or self-care (01) ==
LOC: HO.LAB 10:18
PROVIDERS: Visit Provider Internal Medicine
DX: R43.9 Unspecified disturbances of smell and taste (principal); Z20.822 Contact with and (suspected) exposure to COVID-19
CPT/HCPCS: 0241U; 36415

== ENCOUNTER 2022-01-21 23:56 | Emergency (ER) | payer OTHER, SELFPAY ==
[2022-01-22 00:06] VITALS: BP 142/88; PULSE 85; RESP 18; TEMP 36.6; O2SAT 100; BMI 35.0
[2022-01-22 00:14] LABS: Basophils Percent Auto 0.4 % (0-2); Eosinophils Absolute Auto 0.2 X10*3/uL (0.0-0.4); Eosinophils Percent Auto 2.5 % (0-4); Hematocrit 35.9 % (37.0-47.0); Hemoglobin 11.7 g/dl (12.0-16.0); Imm Gran Abs Auto 0.02 X10*3/uL (0.00-0.03); Imm Gran Pct Auto 0.3 % (0.0-0.4); Lymphocytes Absolute Auto 3.3 X10*3/uL (1.2-4.9); Lymphocytes Percent Auto 41.7 % (20-40); MANUAL DIFF FLAG NO; Mean Corpuscular HGB Conc 32.6 g/dl (31.0-35.0); Mean Corpuscular Hemoglobin 27.1 pg (27.0-33.0); Mean Corpuscular Volume 83.1 fL (80.0-98.0); Mean Platelet Volume 9.4 fL (9.4-12.3); Monocytes Absolute Auto 0.6 X10*3/uL (0.1-1.2); Monocytes Percent Auto 7.4 % (2-11); Neutrophils Absolute Auto 3.8 x10*3/uL (2.0-8.3); Neutrophils Percent Auto 47.7 % (45-73); Platelet Count 368 X10*3/uL (160-400); Red Blood Count 4.32 X10*6/uL (4.20-5.50); Red Cell Distribution Width 13.4 % (11.0-16.0)
[2022-01-22 00:28] LABS: Alanine Aminotransferase 21 U/L (0-31); Albumin Level 3.7 g/dL (3.5-5.0); Alkaline Phosphatase 56 U/L (39-117); Anion Gap 10 (12-20); Aspartate Amino Transferase 18 U/L (5-31); Bilirubin Total 0.2 mg/dL (0.0-1.0); Blood Urea Nitrogen 13 mg/dL (9-16); Carbon Dioxide 25 mmol/L (22-29); Chloride 106 mmol/L (96-108); Creatinine Clr Calc Pharmacy 127.9; Estimated Glomerular Filt Rate > 60; Glucose Random 141 mg/dL (60-115); Lipase 39 U/L (8-78); Potassium 4.2 mmol/L (3.3-5.1); Sodium 137 mmol/L (135-145); Total Protein 6.5 g/dL (6.5-8.0)
[2022-01-22 03:10] VITALS: BP 104/49; PULSE 70; RESP 16; O2SAT 98
--- NOTE | 2022-01-22 07:37 | PC.NURSE ---
Upon entering room for morning assessment, pt noted to not be present in the room with hospital gown discarded. MD Chase aware that pt eloped from hospital.
== END 2022-01-22 08:00 | disposition left against medical advice (07) ==
PROVIDERS: Emergency Provider Emergency Medicine; PCP Family Medicine
DX: R10.9 Unspecified abdominal pain (principal)
CPT/HCPCS: 36415; 80053; 83690; 85025; 99283; 99284

== ENCOUNTER 2022-06-05 04:52 | Emergency (ER) | payer OTHER, SELFPAY ==
--- NOTE | ~2022-06-05 | XR_ITS ---
EXAMINATION: XR CHEST CLINICAL INFORMATION: Right rib cage pain COMPARISON: 05/22/2018 TECHNIQUE: 2 views of the chest were obtained. FINDINGS: Streaky opacity within the middle lobe anteriorly. Left lung clear. No pleural effusion or pneumothorax. Normal heart size and pulmonary vascularity. No acute osseous abnormalities. XR/XR chest 2V IMPRESSION: Right middle lobe streaky opacity has an appearance suggestive of subsegmental atelectasis.
--- NOTE | 2022-06-05 04:54 | ECG_ITS ---
Test Reason : CHEST PAIN Blood Pressure : / mmHG Vent. Rate : 082 BPM Atrial Rate : 082 BPM P-R Int : 194 ms QRS Dur : 084 ms QT Int : 366 ms P-R-T Axes : 058 020 045 degrees QTc Int : 427 ms Normal sinus rhythm Normal ECG When compared with ECG of 12-MAY-2021 11:18, No significant change was found Referred By: Nydia Kim Electronically Signed By:Jasvir Aguila
[2022-06-05 05:05] VITALS: BP 132/76; PULSE 88; RESP 20; TEMP 36.8; O2SAT 96; BMI 34.7
[2022-06-05 05:25] LABS: Hematocrit 39.3 % (37.0-47.0); Hemoglobin 12.9 g/dl (12.0-16.0); Mean Corpuscular HGB Conc 32.8 g/dl (31.0-35.0); Mean Corpuscular Volume 82.2 fL (80.0-98.0); Mean Platelet Volume 9.6 fL (9.4-12.3); Platelet Count 391 X10*3/uL (160-400); Red Blood Count 4.78 X10*6/uL (4.20-5.50); Red Cell Distribution Width 13.7 % (11.0-16.0); White Blood Count 8.4 X10*3/uL (4.8-10.8)
[2022-06-05 05:40] LABS: COVID-19 Test Negative (Negative)
[2022-06-05 05:44] LABS: Alanine Aminotransferase 17 U/L (0-31); Albumin Level 3.9 g/dL (3.5-5.0); Alkaline Phosphatase 62 U/L (39-117); Anion Gap 10 (12-20); Aspartate Amino Transferase 17 U/L (5-31); Bilirubin Total 0.3 mg/dL (0.0-1.0); Blood Urea Nitrogen 12 mg/dL (9-16); Calcium 8.9 mg/dL (8.4-10.2); Carbon Dioxide 27 mmol/L (22-29); Chloride 104 mmol/L (96-108); Creatinine Clr Calc Pharmacy 112.7; Estimated Glomerular Filt Rate > 60; Glucose Random 102 mg/dL (60-115); Potassium 4.4 mmol/L (3.3-5.1); Sodium 137 mmol/L (135-145); Total Protein 6.9 g/dL (6.5-8.0)
[2022-06-05 05:53] LABS: Troponin-I High Sensitivity < 3.5 ng/L (<3.5-17.0)
[2022-06-05 06:27] LABS: Appearance Urine HAZY; Color Urine YELLOW; Glucose Urine UA NEG (NEG); Leukocyte Esterase Urine NEG (NEG); Nitrite Urine NEG (NEG); Specific Gravity - Urine >= 1.030 (1.005-1.025); UACC Culture Trigger NO; Urine Blood 3+ (NEG); Urine Ketones NEG (NEG); Urine Protein 1+ MG/DL (NEG-TRACE)
[2022-06-05 06:40] LABS: Bacteria Urine 2+ /LPF; Mucus Urine 2+ /LPF; Squamous Epithelial Cell Urine 1+ /LPF
[2022-06-05 08:43] VITALS: BP 129/55; PULSE 86; RESP 18; O2SAT 98
--- NOTE | 2022-06-05 09:18 | ED_ITS ---
HPI - Chest Pain General Chief Complaint: Chest Pain Stated Complaint: chest pain & R arm pain Time Seen by Provider: 06/05/22 09:07 Source: patient Mode of arrival: ambulatory Limitations: no limitations History of Present Illness HPI narrative: 31-year-old female with no significant past medical history presenting to the ED with complaints of right-sided chest pain for the past 2-3 days right under her breast that goes down her right arm. She reports the pain as sharp in sensation. Worse with inspiration. Worse with palpation. She reports nothing makes the pain go away. It has been constant. She denies any fevers, chills, dizziness, headaches, change in vision, shortness of breath, dyspnea on exert ion, orthopnea, cough, palpitations, paresthesias, rashes, recent falls or trauma, abdominal pain, back pain, dysuria, hematuria, abnormal vaginal discharge, lower extremity edema or calf tenderness, recent travel or sick contacts, recent immobilization or surgery, history of cancer, hypercoagulation disorder, any estrogen usage or any other symptoms complaints or concerns at this time. MD complaint: chest discomfort Onset (ago): day(s) ( 2-3 days worse today) Timing of current episode: constant Prior episodes: No Onset: during rest Pain location: right chest ( under right breast) Pain radiation: right arm Severity: mild Quality: aching Relieving factors: nothing Exacerbating factors: inspiration, palpation and movement Treatment prior to arrival: none Risk Factors Coronary artery disease risk factors: none Thoracic aortic dissection risk factors: none Related Data Previous Rx's Medication Instructions Recorded azithromycin 250 mg tablet See Rx Instructions PO .COMPLEX #6 10/20/21 tabs cyclobenzaprine 10 mg tablet 10 mg PO Q8H PRN Muscle spasm #14 06/05/22 tabs lidocaine 5 % topical patch 1 patch topical DAILY pain #15 ea 06/05/22 (Lidoderm) naproxen 500 mg tablet 500 mg PO BID PRN pain #10 tabs 06/05/22 tramadol 50 mg tablet 50 mg PO Q8H PRN pain #14 tabs 06/05/22 Allergies Allergy/AdvReac Type Severity Reaction Status Date / Time latex [LATEX] Allergy Unknown SWELLING Verified 01/22/22 00:04 Review of Systems Review of Systems: Constitutional : No Weight loss, No Fever, No Chills, No Night Sweats, No Fatigue, No Malaise ENT/Mouth : No Hearing loss, No Ear Pain, No Nasal Congestion, No Sinus Pain, No Hoarseness, No sore throat, No Rhinorrhea, No Swallowing Difficulty Eyes: No Eye Pain, No Swelling, No Redness, No Foreign Body, No Discharge, No Vision Changes Cardiovascular : + Chest Pain, No SOB, No Dyspnea on Exertion, No Orthopnea, No Edema, No Palpitations Respiratory : No Cough, No Sputum, No Wheezing, No Smoke Exposure, No Dyspnea Gastrointestinal : No Nausea, No Vomiting, No Diarrhea, No Constipation, No abdominal Pain, No Hematochezia, No Melena Genitourinary : no irregular bleeding, No Dysuria, No Urinary Frequency, No Hematuria, No Urinary Incontinence, No Urgency, No Flank Pain, No Urinary Flow Changes, No Hesitancy Musculoskeletal : No joint pain, No Myalgias, No Joint Swelling Skin : No Skin Lesions, No rash Neuro : No Weakness, No Numbness, No Paresthesias, No Loss of Consciousness, No Dizziness, No Headache Psych : No Anxiety/Panic, No Depression, No SI/HI/AH/VH, No Social Issues, Heme/Lymph: No Bruising, No Bleeding,No Lymphadenopathy Endocrine : No Polyuria, No Polydipsia, No Temperature Intolerance Yes all other systems are reviewed and are negative [facility] Past Medical History Attestation statement: The following information was validated with the patient. Source: old records reviewed and nursing notes reviewed Medical History Hyperemesis gravidarum before end of 22 week gestation with carbohydrate depletion No known health problems Family History Family History Mother History of PCOS Hx of endometriosis Father Hx of colon cancer, stage II Brother No problems noted. Brother No problems noted. Sister No problems noted. Maternal Grandfather Hx of diabetes mellitus Maternal Grandmother Hx of diabetes mellitus Paternal Grandfather Hx of diabetes mellitus Paternal Grandmother Hx of diabetes mellitus Social History Social History Household Members: Spouse Alcohol intake: never Patient Tobacco Use Status: Never used Tobacco Advance Directives: No Advance Directives Information Provided: Yes service: No Current occupational status: unemployed Current occupational exposures/hazards: No Physical Exam Vital Signs: Vital Signs: Last Vital Signs Temp 98.2 F 06/05/22 05:05 Pulse 86 06/05/22 08:43 Resp 18 06/05/22 08:43 BP 129/55 L 06/05/22 08:43 Pulse Ox 98 06/05/22 08:43 O2 Del Method 06/05/22 08:43 BMI result Body Mass Index 34.7 vital signs have been reviewed as normal and appeared to be correct. Blood pressure 129/55. Heart rate normal. Respiration rate normal. Temperature normal. Oxygen saturation normal. Appearance: Alert. Oriented X3. No acute distress. Head: Normal external exam. Normocephalic. Atraumatic. Eyes: PERRLA. EOMI. Conjunctiva and sclera normal. Eyelids normal. ENT: Pharynx normal. Uvula midline. Moist mucous membranes. No lesions/ulcerations or masses noted on the tongue. Normal voice. No trismus noted. No drooling noted. No muffled voice noted. Neck: Normal inspection. Neck supple. FROM. No adenopathy. Thyroid Normal. No tracheal deviation noted. No crepitus is noted. No meningeal signs. CVS: Normal heart rate and rhythm. Heart sound normal. Pulses normal throughout. No murmurs/rales/gallops. Respiratory: No respiratory distress. Painless inspiration. Breath sounds normal. No wheezes/rales/rhonchi noted. Chest wall with tenderness palpation on the right breast. No ecchymosis or rashes noted. No crepitus is noted. No ac cessory muscle usage noted or decreased air movement noted. No signs of trauma. Abdomen: Soft and nontender. Bowel sounds normal in all 4 quadrants. No distention noted. No organomegaly noted. No visible injury noted. Back: Full range of motion noted. Nontender. Skin: Skin warm and dry. Normal skin color. Normal skin turgor. No rashes/lesions/lacerations noted. Extremities: No lower extremity edema. No calf tenderness is noted. Extremities exhibit normal range of motion and nontender. Neuro: Oriented X 3. No motor deficit. No sensory deficit. Reflexes normal. Normal steady gait. No focal neuro deficits noted. CN's II-XII intact bilaterally? Vascular: + radial pulses/+ 2 distal pedal pulses/+2 dorsalis pedis b/l. Normal cap refill. No cyanosis noted to upper extremity nails and lower extremity toes nails. Course Course Course Narrative: 31-year-old female with no significant past medical history presenting to the ED with complaints of right-sided chest pain for the past 2-3 days right under her breast that goes down her right arm. She reports the pain as sharp in sensation. Worse with inspiration. Worse with palpation. She reports nothing makes the pain go away. It has been constant. Labs were obtained while the patient was in the waiting room and all labs including troponin within normal limits. Patient UA revealed protein and blood otherwise no evidence of UTI and patient negative for . EKG normal sinus rhythm no acute ischemic change are noted. Patient most likely muscular skeletal pain. Will obtain a chest x-ray if negative will DC home with muscle relaxants and symptomatic treatment instructions return if any new or worsening symptoms follow up with primary care provider. Patient understands agrees with this plan. Reevaluation(s) Reevaluation #1: - Chest x-ray revealed right middle lobe streaky opacity has appearance suggestive of subsegmental atelectasis. Not consistent with pneumonia as patient denies any fevers, cough, sputum production, shortness of breath, dyspnea on exertion, orthopnea or any URI symptoms. Therefore will DC home with muscular skeletal treatment instructions return if any new or worsening symptoms. Patient understands agrees with this plan. Time: 10:44 [facility] - Chest Pain Medical Records Data Attestation: I reviewed the patient's medical records. Lab Data Attestation: I reviewed the patient's lab results. Result diagrams: 06/05/22 05:16 06/05/22 05:16 Labs: Lab Results 06/05/22 06/05/22 06/05/22 Range/Units 05:16 05:16 05:16 WBC 8.4 (4.8-10.8) X10*3/uL RBC 4.78 (4.20-5.50) X10*6/uL Hgb 12.9 (12.0-16.0) g/dl Hct 39.3 (37.0-47.0) % MCV 82.2 (80.0-98.0) fL MCH 27.0 (27.0-33.0) pg MCHC 32.8 (31.0-35.0) g/dl RDW 13.7 (11.0-16.0) % Plt Count 391 (160-400) X10*3/uL MPV 9.6 (9.4-12.3) fL Absolute Nucleated RBC 0.000 (0.0-0.012) X10*3/uL Nucleated RBC % (auto) 0.0 (0.0-0.2) /100WBC Sodium 137 (135-145) mmol/L Potassium 4.4 (3.3-5.1) mmol/L Chloride 104 (96-108) mmol/L Carbon Dioxide 27 (22-29) mmol/L Anion Gap 10 L (12-20) BUN 12 (9-16) mg/dL Creatinine 0.75 (0.5-1.4) mg/dL Estim Creat Clear Calc 112.7 Estimated GFR > 60 Random Glucose 102 (60-115) mg/dL Calcium 8.9 (8.4-10.2) mg/dL Total Bilirubin 0.3 (0.0-1.0) mg/dL AST 17 (5-31) U/L ALT 17 (0-31) U/L Alkaline Phosphatase 62 (39-117) U/L Troponin I High Sens < 3.5 (<3.5-17.0) ng/L Total Protein 6.9 (6.5-8.0) g/dL Albumin 3.9 (3.5-5.0) g/dL Beta HCG, Quant < 2 mIU/mL Urine Color Urine Appearance Urine pH (5.0-8.0) Ur Specific [place] (1.005-1.025) Urine Protein (NEG-TRACE) MG/DL Urine Glucose (UA) (NEG) MG/DL Urine Ketones (NEG) MG/DL Urine Blood (NEG) Urine Nitrite (NEG) Ur Leukocyte Esterase (NEG) Urine RBC (0) /HPF Urine WBC (0-4) /HPF Ur Squamous Epith Cells /LPF Urine Bacteria /LPF Urine Mucus /LPF COVID-19 (JAMES) (Negative) COVID-19 Clin Com 06/05/22 06/05/22 Range/Units 05:16 06:06 WBC (4.8-10.8) X10*3/uL RBC (4.20-5.50) X10*6/uL Hgb (12.0-16.0) g/dl Hct (37.0-47.0) % MCV (80.0-98.0) fL MCH (27.0-33.0) pg MCHC (31.0-35.0) g/dl RDW (11.0-16.0) % Plt Count (160-400) X10*3/uL MPV (9.4-12.3) fL Absolute Nucleated RBC (0.0-0.012) X10*3/uL Nucleated RBC % (auto) (0.0-0.2) /100WBC Sodium (135-145) mmol/L Potassium (3.3-5.1) mmol/L Chloride (96-108) mmol/L Carbon Dioxide (22-29) mmol/L Anion Gap (12-20) BUN (9-16) mg/dL Creatinine (0.5-1.4) mg/dL Estim Creat Clear Calc Estimated GFR Random Glucose (60-115) mg/dL Calcium (8.4-10.2) mg/dL Total Bilirubin (0.0-1.0) mg/dL AST (5-31) U/L ALT (0-31) U/L Alkaline Phosphatase (39-117) U/L Troponin I High Sens (<3.5-17.0) ng/L Total Protein (6.5-8.0) g/dL Albumin (3.5-5.0) g/dL Beta HCG, Quant mIU/mL Urine Color YELLOW Urine Appearance HAZY Urine pH 6.0 (5.0-8.0) Ur Specific [place] >= 1.030 H (1.005-1.025) Urine Protein 1+ H (NEG-TRACE) MG/DL Urine Glucose (UA) NEG (NEG) MG/DL Urine Ketones NEG (NEG) MG/DL Urine Blood 3+ H (NEG) Urine Nitrite NEG (NEG) Ur Leukocyte Esterase NEG (NEG) Urine RBC 15-29 H (0) /HPF Urine WBC 1-4 (0-4) /HPF Ur Squamous Epith Cells 1+ /LPF Urine Bacteria 2+ /LPF Urine Mucus 2+ /LPF COVID-19 (JAMES) Negative (Negative) COVID-19 Clin Com See Note Imaging Data Chest x-ray: Attestation: I personally reviewed and interpreted this imaging study as follows: Radiologist's impression: FINDINGS: Streaky opacity within the middle lobe anteriorly. Left lung clear. No pleural effusion or pneumothorax. Normal heart size and pulmonary vascularity. No acute osseous abnormalities. XR/XR chest 2V IMPRESSION: Right middle lobe streaky opacity has an appearance suggestive of subsegmental atelectasis. ECG Data ECG #1: Attestation: I personally reviewed and interpreted this ECG as follows: ECG interpretation date: 06/05/22 ECG interpretation time: 04:54 Interpretation: Normal sinus rhythm with ventricular rate of 82 with a normal AL interval normal QRS duration normal QT/ QTC interval. No acute ischemic change are noted. Similar compared to prior EKG 05/12/2021. Discharge Plan Discharge Clinical Impression: Pain on movement of skeletal muscle Patient Disposition: Home, Self-Care Instructions: Musculoskeletal Pain (ED) Prescriptions: New cyclobenzaprine 10 mg tablet 10 mg PO Q8H PRN (Reason: Muscle spasm) Qty: 14 0RF tramadol 50 mg tablet 50 mg PO Q8H PRN (Reason: pain) Qty: 14 0RF Rx Instructions: May partially fill upon patient request lidocaine [Lidoderm] 5 % adhesive patch,medicated 1 patch topical DAILY Qty: 15 0RF Rx Instructions: leave on most painful area for up to 12 hrs. May be substituted naproxen 500 mg tablet 500 mg PO BID PRN (Reason: pain) Qty: 10 0RF No Action azithromycin 250 mg tablet See Rx Instructions PO .COMPLEX Qty: 6 0RF Rx Instructions: take 500 mg today (day 1), then 250 mg for 4 days (days 2-5) PO Boostrix Tdap 2.5-8-5 Lf-mcg-Lf/0.5mL syringe 0.5 ml IM ONCE Qty: 0.5 0RF Referrals: Physician,None [Primary Care Provider] - 2 days (your pcp) Stand Alone Forms: Work/School Release Interventions: ED Discharge Assessment Last Done: 06/05/22 10:11 Discharge Date/Time: 06/05/22 10:12
[2022-06-05 09:51] LABS: HCG Quantitative < 2 mIU/mL
== END 2022-06-05 10:12 | disposition home or self-care (01) ==
PROVIDERS: Physician Assistant Medical; Emergency Provider Emergency Medicine
DX: M79.18 Myalgia, other site (principal); R07.9 Chest pain, unspecified; Z20.822 Contact with and (suspected) exposure to COVID-19
CPT/HCPCS: 36415; 71046; 80053; 81001; 84484; 84702; 85027; 87635; 93005; 99283

== ENCOUNTER 2023-06-03 15:04 | Emergency (ER) | payer OTHER, SELFPAY ==
--- NOTE | ~2023-06-03 | CT_ITS ---
EXAMINATION: CT HEAD WITHOUT CONTRAST (STROKE PROTOCOL) CLINICAL INFORMATION: Stroke protocol. Left-sided weakness. COMPARISON: None available. TECHNIQUE: Contiguous axial imaging was performed from the skull base to vertex without intravenous administration of contrast. This CT examination was performed using dose optimization techniques as appropriate, variously including the following: *Automated exposure control *Adjustment of mA and/or kV according to patient size (this includes techniques or standardized protocols for targeted exams where dose is matched to indication/reason for exam; i.e. extremities or head) *Use of iterative reconstruction technique DLP: 642 mGy-cm FINDINGS: There is no acute intra-axial, extra-axial bleeding, masses or midline shift. There is no acute infarction in evolution. There is no edema. The lateral ventricles are symmetrical in size and configuration without enlargement. Sierra to white matter differentiation is maintained normal. Bone windows reveal no calvarial abnormality. There is no scalp soft tissue abnormality. Bilateral nasal sinuses and mastoid air cells are well-aerated and clear. CT/CT head for stroke IMPRESSION: No acute intracranial process seen This critical result was discussed with Dr. Borden in ED by phone at 3:45 PM on 06/03/2023. It was ascertained that the content and urgency of the report was understood at the time of direct communication.
--- NOTE | ~2023-06-03 | XR_ITS ---
EXAMINATION: XR CHEST CLINICAL INFORMATION: Left facial weakness. COMPARISON: None available. TECHNIQUE: Frontal view of the chest was obtained. FINDINGS: No significant abnormality is noted involving the heart, lungs, mediastinum, bony thorax or soft tissues. XR/XR chest 1V IMPRESSION: Unremarkable examination.
--- NOTE | ~2023-06-03 | CT_ITS ---
EXAMINATION: CT ANGIOGRAM HEAD CT ANGIOGRAM NECK CLINICAL INFORMATION: Left-sided weakness. COMPARISON: CT head from 06/03/2023. TECHNIQUE: Initial noncontrast talent acquisition specialist imaging of the head and neck was performed. Comparison is made with noncontrast head CT from earlier today. Test bolus sequences followed by intravenous administration 70 mL of Omnipaque 350. Helical imaging was performed in the axial plane from the aortic arch to the skull vertex. Delayed postcontrast imaging of the head was also performed. The data was processed at the biotechnologist's workstation for generation of MIP sequences. Angled MIPs and volume rendered reformatted images were also generated at an offline 3D workstation. Stenoses are assessed in accordance with NASCET criteria unless otherwise indicated. This CT examination was performed using dose optimization techniques as appropriate, variously including the following: *Automated exposure control. *Adjustment of mA and/or kV according to patient size (this includes techniques or standardized protocols for targeted exams where dose is matched to indication/reason for exam; i.e. extremities or head). *Use of iterative reconstruction technique. DLP: 1323 mGy-cm FINDINGS: CT Head: There is no evidence of acute intracranial hemorrhage or edematous territorial infarction. Sierra-white matter differentiation is preserved. There is no abnormal attenuation within the brain parenchyma. The ventricles are normal in morphology and size. No evidence for obstructive hydrocephalus. No abnormal mass effect or midline shift. No extra-axial fluid collections. No pathologic intra-axial enhancement or regional oligemia. No acute soft tissue or osseous abnormalities. Mild mucosal thickening of the paranasal sinuses. Mild rightward nasal septal deviation. The mastoid air cells and middle ear cavities are clear. Mild degenerative arthropathy of the right temporomandibular joint. CT Neck: The thyroid gland and remaining cervical soft tissues are within normal limits. Mild degenerative disc disease at C4-C5 and C5-C6. No additional significant abnormalities of the cervical spine. CT Upper Chest: The visualized lung apices and upper mediastinum are within normal limits. Neck CTA: Aortic Arch: Normal contour and caliber. Classic 3 vessel branching pattern of the aortic arch. Great Vessel Origins: No significant stenosis of the branch origins. Right Common Carotid Artery: No focal stenosis or occlusion. Cervical Right Internal Carotid Artery: Normal opacification without focal stenosis or occlusion. Left Common Carotid Artery: No focal stenosis or occlusion. Cervical Left Internal Carotid Artery: Normal opacification without focal stenosis or occlusion. Cervical Right Vertebral Artery: Co-dominant. No focal stenosis or occlusion. Cervical Left Vertebral Artery: Co-dominant. No focal stenosis or occlusion. Brain CTA: Intracranial Internal Carotid Arteries: No focal stenosis or occlusion. Right Anterior Cerebral Artery: The A1 segment is diminutive. Normal opacification of the distal TONY segments. Left Anterior Cerebral Artery: Normal A1 segment. Normal opacification of the distal TONY segments. Anterior Communicating Artery: Normal. Right Middle Cerebral Artery: Normal M1 segment of the MCA without focal stenosis or occlusion. Normal arborization of the distal segments. Left Middle Cerebral Artery: Normal M1 segment of the MCA without focal stenosis or occlusion. Normal arborization of the distal segments. Right Vertebral Artery: Normal V4 segment. Normal opacification of the proximal segments of the posterior inferior cerebellar artery. Left Vertebral Artery: Normal V4 segment. Normal opacification of the proximal segments of the posterior inferior cerebellar artery. Basilar Artery: Normal without focal stenosis or occlusion. Normal appearance of the proximal superior cerebellar arteries. Right Posterior Cerebral Artery: Normal P1 segment. Normal opacification of the distal DESIGN/ANIMATION INSTRUCTOR segments. Left Posterior Cerebral Artery: Normal P1 segment. Normal opacification of the distal DESIGN/ANIMATION INSTRUCTOR segments. Normal opacification of the superior sagittal, straight, transverse, and sigmoid sinuses. CT/CT angio head neck stroke IMPRESSION: 1. No evidence of acute intracranial hemorrhage or edematous territorial infarction. 2. CTA of the head and neck without proximal occlusion or flow-limiting stenosis.
[2023-06-03 15:09] VITALS: BP 128/76; PULSE 80; O2SAT 100
[2023-06-03 15:10] VITALS: BP 108/47; PULSE 83; RESP 18; TEMP 37.1; O2SAT 98; BMI 38.8
--- NOTE | 2023-06-03 15:20 | ECG_ITS ---
Test Reason : NUMBNESS Blood Pressure : / mmHG Vent. Rate : 073 BPM Atrial Rate : 073 BPM P-R Int : 208 ms QRS Dur : 084 ms QT Int : 372 ms P-R-T Axes : 056 034 041 degrees QTc Int : 409 ms Normal sinus rhythm Normal ECG When compared with ECG of 05-JUN-2022 04:54, No significant change was found Referred By: Guerita Borden Electronically Signed By:Jasvir Aguila
--- NOTE | 2023-06-03 15:25 | ED.WEAKNESS ---
HPI - Weakness General Chief complaint: Weakness Stated complaint: sudden on set left sided weakness, per ems Time Seen by Provider: 06/03/23 15:06 Source: patient and EMS Mode of arrival: EMS Limitations: no limitations History of Present Illness HPI Narrative: 32 y/o female brought in by ambulance for evaluation of feeling dizzy, and sudden onset of left-sided facial and upper arm numbness with a subtle weakness, patient is feeling abnormal, no CP, no SOB, patient is not taking hormonal replacement therapy, no family history of stroke at young age. Related Data Previous Rx's Medication Instructions Recorded azithromycin 250 mg tablet See Rx Instructions PO .COMPLEX #6 10/20/21 tabs cyclobenzaprine 10 mg tablet 10 mg PO Q8H PRN Muscle spasm #14 06/05/22 tabs lidocaine 5 % topical patch 1 patch topical DAILY pain #15 ea 06/05/22 (Lidoderm) naproxen 500 mg tablet 500 mg PO BID PRN pain #10 tabs 06/05/22 tramadol 50 mg tablet 50 mg PO Q8H PRN pain #14 tabs 06/05/22 Allergies Allergy/AdvReac Type Severity Reaction Status Date / Time latex [LATEX] Allergy Unknown SWELLING Verified 01/22/22 00:04 Review of Systems Review of Systems: All other systems are reviewed and are negative Constitutional: Reports as per HPI and Reports no additional constitutional complaints Eyes: Reports as per HPI and Reports no additional eye complaints Reports system reviewed and no additional complaints, except as documented Cardiovascular: Reports as per HPI and Reports no additional cardiovascular complaints Respiratory: Reports as per HPI and Reports no additional respiratory complaints Gastrointestinal: Reports as per HPI and Reports no additional gastrointestinal complaints Genitourinary: Reports no additional female genitourinary complaints Musculoskeletal: Reports no additional musculoskeletal complaints Skin/Breast: Reports system reviewed and no additional complaints, except as docu Psychiatric: Reports no additional psychiatric complaints Endocrine: Reports no additional endocrine complaints Hematologic/Lymphatic: Reports no additional hematologic/lymphatic complaints Allergic/Immunologic: Reports no additional allergic/immunologic complaints Reports system reviewed and no additional complaints, except as documented and Reports Abnormal speech present [facility] Past Medical History Medical History Hyperemesis gravidarum before end of 22 week gestation with carbohydrate depletion No known health problems Family History Family History Mother History of PCOS Hx of endometriosis Father Hx of colon cancer, stage II Brother No problems noted. Brother No problems noted. Sister No problems noted. Maternal Grandfather Hx of diabetes mellitus Maternal Grandmother Hx of diabetes mellitus Paternal Grandfather Hx of diabetes mellitus Paternal Grandmother Hx of diabetes mellitus Social History Social History Household Members: Spouse Alcohol intake: never Patient Tobacco Use Status: Never used Tobacco Advance Directives: No Advance Directives Information Provided: No Patient : No service: No Current occupational status: unemployed Current occupational exposures/hazards: No Physical Exam Vital Signs: Vital Signs: Last Vital Signs Temp 98.7 F 06/03/23 15:10 Pulse 78 06/03/23 16:53 Resp 15 06/03/23 16:53 BP 115/57 L 06/03/23 16:53 Pulse Ox 98 06/03/23 16:53 O2 Del Method Room Air 06/03/23 16:53 BMI result Body Mass Index 38.8 Vital signs have been reviewed as appeared to be correct. Blood pressure normal. Heart rate normal. Respiration rate normal. Temperature normal. Oxygen saturation normal. Appearance: Alert. Oriented X3. No acute distress. Head: Normal external exam. Normocephalic. Atraumatic. No Esteban signs noted. No raccoon eyes noted Eyes: PERRLA. EOMI. Conjunctiva and sclera normal. Eyelids normal. ENT: TM's Normal. Pharynx normal. Uvula midline. Moist mucous membranes. No trismus noted. No drooling noted. No muffled voice noted. Neck: Normal inspection. Neck supple. FROM. No adenopathy. Thyroid Normal. No meningeal signs. No neck mass noted. CVS: Normal heart rate and rhythm. Heart sound normal. No murmurs noted. Pulses normal throughout. Respiratory: No respiratory distress. Painless inspiration. Breath sounds normal. No wheezes/rales/rhonchi noted. Chest nontender. No accessory muscle usage noted or decreased air movement noted. Abdomen: Soft and nontender. Bowel sounds normal in all 4 quadrants. No distention noted. No organomegaly noted. No visible injury noted. Back: No CVA tenderness. Full range of motion noted. Skin: Skin warm and dry. Normal skin color. Normal skin turgor. No rashes/lesions/lacerations noted. Extremities: No lower extremity edema. Extremities exhibit normal range of motion. Extremities nontender. Neuro: Oriented X 3. Cranial nerve exam: II-XII are grossly intact No motor deficit. No sensory deficit. Reflexes normal. NIH Stroke Scale Internal: Initial- Upon Arrival Time: 15:32 Level of Consciousness: Alert Level of Consciousness Questions: Answers both questions correctly Level of Consciousness Commands: Performs both tasks correctly Best Gaze: Normal Visual: No visual loss Facial Palsy: Minor paralyis Motor Arm (Right): No drift Motor Arm (Left): Drift Motor Leg (Right): No drift Motor Leg (Left): No drift Limb Ataxia: Absent Sensory: Mild to moderate sensory loss Best Language: No aphasia Dysarthia: Normal Extinction and Inattention: No abnormality Score: 3 Course Reevaluation(s) Reevaluation #1: Repeat neuro exam revealing subjective and objective improvement of patient's symptoms, numbness and weakness has improved. The case was discussed with Dr. Jordan who agreed that the patient is not a candidate for thrombolysis for a minor symptoms and uncertainty of the diagnosis patient will need further MRI of the brain to rule out other differential diagnosis of patient's symptoms i.e. CVA, demyelinated disease, etc... Patient was offered to stay in the hospital patient cannot stay in the hospital due to family a show in the such short notice, patient opted to sign against medical advice patient was made aware of the downside of leaving the hospital against medical advice including but not limited to stroke and . Patient was instructed to follow-up with her PCP and seek immediate medical attention if symptoms happen again. Time: 18:32 Medications Administered Discontinued Medications Generic Name Dose Route Start Last Admin Trade Name Freq PRN Reason Stop Dose Admin Aspirin 81 mg 06/03/23 16:01 06/03/23 16:51 Aspirin Enteric Coated 81 Mg Tablet.Dr AGUIRRE 06/03/23 16:02 81 mg ONCE ONE Administration Iohexol 100 ml 06/03/23 17:20 06/03/23 17:20 Iohexol 350 Mg/Ml 100 Ml Infus..Btl IV 06/03/23 17:21 70 ml ONCE ONE Administration Medical Decision Making Differential Diagnosis Differential Diagnoses: The differential diagnosis associated with the presentation includes (TIA, hemorrhagic stroke, ischemic stroke, demyelinated nerve disease, electrolyte abnormality, severe anemia.) Admission/Observation Consideration of admission/observation: Escalation of care including admission/observation considered Consult Healthcare Provider Management of the patient was discussed with: Powder Worker (Dr. Jordan) Lab Data [facility] Lab Attestation statement: I reviewed the patient's lab results. 06/03/23 16:07 06/03/23 16:07 Labs: Lab Results 06/03/23 06/03/23 06/03/23 Range/Units 16:07 16:07 16:07 WBC 6.9 (4.8-10.8) X10*3/uL RBC 4.24 (4.20-5.50) X10*6/uL Hgb 11.6 L (12.0-16.0) g/dl Hct 35.3 L (37.0-47.0) % MCV 83.3 (80.0-98.0) fL MCH 27.4 (27.0-33.0) pg MCHC 32.9 (31.0-35.0) g/dl RDW 14.5 (11.0-16.0) % Plt Count 351 (160-400) X10*3/uL MPV 9.5 (9.4-12.3) fL Immature Gran % (Auto) 0.1 (0.0-0.4) % Neut % (Auto) 59.9 (45-73) % Lymph % (Auto) 28.3 (20-40) % [place] % (Auto) 9.1 (2-11) % Eos % (Auto) 2.0 (0-4) % Baso % (Auto) 0.6 (0-2) % Lymph # (Auto) 1.9 (1.2-4.9) X10*3/uL [place] # (Auto) 0.6 (0.1-1.2) X10*3/uL Eos # (Auto) 0.1 (0.0-0.4) X10*3/uL Baso # (Auto) 0.0 (0.0-0.2) X10*3/uL Abs Immat Gran (auto) 0.01 (0.00-0.03) X10*3/uL Absolute Neuts (auto) 4.1 (2.0-8.3) x10*3/uL Absolute Nucleated RBC 0.000 (0.0-0.012) X10*3/uL Nucleated RBC % (auto) 0.0 (0.0-0.2) /100WBC Sodium 137 (135-145) mmol/L Potassium 3.6 (3.3-5.1) mmol/L Chloride 104 (96-108) mmol/L Carbon Dioxide 27 (22-29) mmol/L Anion Gap 10 L (12-20) BUN 8 L (9-16) mg/dL Creatinine 0.71 (0.5-1.4) mg/dL Estim Creat Clear Calc 120.6 Estimated GFR > 60 Random Glucose 94 (60-115) mg/dL Calcium 8.9 (8.4-10.2) mg/dL Total Bilirubin 0.3 (0.0-1.0) mg/dL Direct Bilirubin 0.1 (0.0-0.5) mg/dL AST 17 (5-31) U/L ALT 16 (0-31) U/L Alkaline Phosphatase 57 (39-117) U/L Troponin I High Sens < 2.7 (<3.5-17.0) ng/L Total Protein 6.5 (6.5-8.0) g/dL Albumin 3.5 (3.5-5.0) g/dL Lipase 19 (8-78) U/L Independent Interpretation I performed an independent interpretation of an: CT Scan (Head/had a neck CT angio: No LVO acute occlusion, no acute strokes, no hemorrhage.) Radiology Impression Discussion of test interpretation with radiology: I have reviewed the radiologist's reading. Discharge Plan Discharge Clinical Impression: Brain TIA Patient Disposition: Left Against Medical Advice Instructions: Transient Ischemic Attack (ED) Prescriptions: No Action cyclobenzaprine 10 mg tablet 10 mg PO Q8H PRN (Reason: Muscle spasm) Qty: 14 0RF tramadol 50 mg tablet 50 mg PO Q8H PRN (Reason: pain) Qty: 14 0RF Rx Instructions: May partially fill upon patient request lidocaine [Lidoderm] 5 % adhesive patch,medicated 1 patch topical DAILY Qty: 15 0RF Rx Instructions: leave on most painful area for up to 12 hrs. May be substituted naproxen 500 mg tablet 500 mg PO BID PRN (Reason: pain) Qty: 10 0RF azithromycin 250 mg tablet See Rx Instructions PO .COMPLEX Qty: 6 0RF Rx Instructions: take 500 mg today (day 1), then 250 mg for 4 days (days 2-5) PO Boostrix Tdap 2.5-8-5 Lf-mcg-Lf/0.5mL syringe 0.5 ml IM ONCE Qty: 0.5 0RF Referrals: Physician,None [Primary Care Provider] -
[2023-06-03 16:10] LABS: MANUAL DIFF FLAG NO
[2023-06-03 16:13] LABS: Basophils Percent Auto 0.6 % (0-2); Eosinophils Absolute Auto 0.1 X10*3/uL (0.0-0.4); Hematocrit 35.3 % (37.0-47.0); Hemoglobin 11.6 g/dl (12.0-16.0); Imm Gran Abs Auto 0.01 X10*3/uL (0.00-0.03); Imm Gran Pct Auto 0.1 % (0.0-0.4); Lymphocytes Absolute Auto 1.9 X10*3/uL (1.2-4.9); Lymphocytes Percent Auto 28.3 % (20-40); Mean Corpuscular HGB Conc 32.9 g/dl (31.0-35.0); Mean Corpuscular Hemoglobin 27.4 pg (27.0-33.0); Mean Corpuscular Volume 83.3 fL (80.0-98.0); Mean Platelet Volume 9.5 fL (9.4-12.3); Monocytes Absolute Auto 0.6 X10*3/uL (0.1-1.2); Monocytes Percent Auto 9.1 % (2-11); Neutrophils Absolute Auto 4.1 x10*3/uL (2.0-8.3); Neutrophils Percent Auto 59.9 % (45-73); Platelet Count 351 X10*3/uL (160-400); Red Blood Count 4.24 X10*6/uL (4.20-5.50); Red Cell Distribution Width 14.5 % (11.0-16.0); White Blood Count 6.9 X10*3/uL (4.8-10.8)
[2023-06-03 16:36] LABS: Troponin-I High Sensitivity < 2.7 ng/L (<3.5-17.0)
[2023-06-03] MEDS: Aspirin Enteric Coated 81 MG TABLET.DR PO (16:51)
[2023-06-03 16:53] VITALS: BP 115/57; PULSE 78; RESP 15; O2SAT 98
[2023-06-03 17:04] LABS: Alanine Aminotransferase 16 U/L (0-31); Albumin Level 3.5 g/dL (3.5-5.0); Alkaline Phosphatase 57 U/L (39-117); Anion Gap 10 (12-20); Aspartate Amino Transferase 17 U/L (5-31); Bilirubin Direct 0.1 mg/dL (0.0-0.5); Bilirubin Total 0.3 mg/dL (0.0-1.0); Blood Urea Nitrogen 8 mg/dL (9-16); Calcium 8.9 mg/dL (8.4-10.2); Carbon Dioxide 27 mmol/L (22-29); Chloride 104 mmol/L (96-108); Creatinine Clr Calc Pharmacy 120.6; Estimated Glomerular Filt Rate > 60; Glucose Random 94 mg/dL (60-115); Lipase 19 U/L (8-78); Potassium 3.6 mmol/L (3.3-5.1); Sodium 137 mmol/L (135-145); Total Protein 6.5 g/dL (6.5-8.0)
[2023-06-03] MEDS: iohexoL 350 MG/ML 100 ML INFUS..BTL IV (17:20)
[2023-06-03 18:37] VITALS: BP 101/51; PULSE 81; RESP 17; TEMP 36.9; O2SAT 99
== END 2023-06-03 18:48 | disposition left against medical advice (07) ==
PROVIDERS: Emergency Provider Emergency Medicine
DX: R29.810 Facial weakness (principal); R20.0 Anesthesia of skin
CPT/HCPCS: 36415; 70450; 70496; 70498; 71045; 80048; 80076; 83690; 84484; 85025; 93005; 99284; Q9967

== ENCOUNTER → 2023-06-03 15:20 | Outpatient (BNV) | payer OTHER, SELFPAY | PROVIDERS: Emergency Provider Emergency Medicine; Visit Provider Internal Medicine Cardiovascular Disease | DX: R53.1 Weakness (principal) | CPT/HCPCS: 93010 ==

== ENCOUNTER 2024-07-23 08:19 | Outpatient (AMB) | payer OTHER, SELFPAY ==
[2024-07-23 08:23] VITALS: BP 108/76; PULSE 98; TEMP 37.2; O2SAT 98; BMI 33.3
--- NOTE | 2024-07-23 08:23 | MHC.OFFWIV ---
Intake Vital Signs 07/23/24 08:23 Height 5 ft 1 in Weight 176 lb BMI 33.3 BP 108/76 Blood Pressure Location Lt brachial Position Sitting Pulse 98 Pulse Source Pulse Oximeter Temp 98.9 F Temp Source Oral Pulse Oximetry (%) 98 Oxygen Delivery Method Room Air Intake Visit Reasons: EP Lump back of neck/headaches Intake Note: pt c/o lump on back of neck and headaches. Started 6 days ago Patient Tobacco Use Status: Former Tobacco user Allergies latex [LATEX] Allergy (Unknown, Verified 07/23/24 08:26) SWELLING Do you need a note to return to daycare/school/sports/work: No HPI HPI Comments History of Present Illness Details Patient is a 33-year-old female complaining of left-sided lump on her neck. She states it has been there for 6 days. She states she has had it happened before but it kind of just went away on its own. This she states that this time it is causing her headache and feels like it is pulling on her neck. She has tried Excedrin and Motrin without much relief. [facility] Medical History Hyperemesis gravidarum before end of 22 week gestation with carbohydrate depletion No known health problems Family History Mother History of PCOS Hx of endometriosis Father Hx of colon cancer, stage II Brother No problems noted. Brother No problems noted. Sister No problems noted. Maternal Grandfather Hx of diabetes mellitus Maternal Grandmother Hx of diabetes mellitus Paternal Grandfather Hx of diabetes mellitus Paternal Grandmother Hx of diabetes mellitus Social History Household Members: Spouse Alcohol intake: never Patient Tobacco Use Status: Former Tobacco user service: No Current occupational status: unemployed Current occupational exposures/hazards: No Female Reproductive History Menstrual Age of Menarche: 12 Review of Systems Const All systems reviewed & are unremarkable except as noted in HPI and below Physical Exam Vital Signs: Last Vital Signs Temp 98.9 F 07/23/24 08:23 Pulse 98 07/23/24 08:23 BP 108/76 07/23/24 08:23 Pulse Ox 98 07/23/24 08:23 Oxygen Delivery Method Room Air 07/23/24 08:23 BMI result Body Mass Index 33.3 Const General: cooperative, healthy appearing and comfortable Orientation/consciousness: patient oriented x3 HEENT Head: Yes normal to inspection and Yes normocephalic General nose exam: Normal external nose present Face and sinus: Yes normal facial exam Eyes General: appearance normal, both eyes and all related structures Resp Effort & Inspection: normal respiratory effort and able to speak in complete sentences General: Yes no CVA tenderness Back/Spine/Pelvis Back: no CVA tenderness Cervical Spine: normal cervical lordosis, cervical ROM normal, cervical spasm (left side) and No Cervical spine tenderness Neuro General: patient oriented x3 Assessment & Plan Assessment & Plan (1) Cervical paraspinal muscle spasm: Code(s): M62.838 - Other muscle spasm Plan: Recommended using muscle relaxers as needed, can add in a leave and hot compress. If no resolution in symptoms, she should follow up with her PCP. Plan see above Medications: New cyclobenzaprine 5 mg PO TID PRN 14 tabs 0RF muscle spasm Coding Level of Care Code New Pt Level 3 (35318) Diagnoses Cervical paraspinal muscle spasm M62.838
== END 2024-07-23 10:08 | disposition home or self-care (01) ==
PROVIDERS: Visit Provider Physician Assistant
DX: M62.838 Other muscle spasm (principal)
CPT/HCPCS: 99203

== ENCOUNTER 2024-08-13 09:00 | Outpatient (AMB) | payer OTHER, SELFPAY ==
--- NOTE | 2024-08-13 10:08 | AM.OFFWIN_ITS ---
Intake Vital Signs 08/13/24 10:10 Height 5 ft 1 in Weight 178 lb 6 oz BMI 33.7 BP 110/78 Blood Pressure Location Lt brachial Position Sitting Pulse 98 Pulse Source Pulse Oximeter Pulse Oximetry (%) 99 Oxygen Delivery Method Room Air Intake Visit Reasons: EP ?Gallbladder pain Intake Note: Patient here for gallbladder pain, she has a hx of gallstones but over the past couple of months the attacks have been more frequent and more painful. Patient Tobacco Use Status: Former Tobacco user Allergies latex [LATEX] Allergy (Unknown, Verified 08/13/24 10:11) SWELLING Do you need a note to return to daycare/school/sports/work: Yes HPI EP ?Gallbladder pain HPI Details This note is constructed using voice recognition software. While every effort has been made to ensure accuracy, professor of public administration errors may have been included. The patient is a 33 year old female who presents to the clinic today with complaints of gallbladder pain in longstanding history gallstones. She notes that she has had historically intermittent gallbladder attacks, however has had over the past 6 months increased to at least once per month. She notes that she gets vomiting and right upper quadrant abdominal pain when they occur, she takes ibuprofen which seems to help some, but it has led her to be fearful of eating food. She is attempting to avoid fats, and this seems to help prevent the symptoms. She also notes that she has some heartburn which she takes Tums for and this seems to help that as well. She denies fever, chills, unrelenting vomiting, diarrhea, any yellowing of the skin. She has an appointment with her primary care provider after the new year, and she feels that this may be too long to wait for action on potential removal of the gallbladder. She notes that she had seen a surgeon in the past, but she feels that nothing was done to consider surgical removal.. [facility] Medical History Hyperemesis gravidarum before end of 22 week gestation with carbohydrate depletion No known health problems Family History Mother History of PCOS Hx of endometriosis Father Hx of colon cancer, stage II Brother No problems noted. Brother No problems noted. Sister No problems noted. Maternal Grandfather Hx of diabetes mellitus Maternal Grandmother Hx of diabetes mellitus Paternal Grandfather Hx of diabetes mellitus Paternal Grandmother Hx of diabetes mellitus Social History Household Members: Spouse Alcohol intake: never Patient Tobacco Use Status: Former Tobacco user service: No Current occupational status: unemployed Current occupational exposures/hazards: No Female Reproductive History Menstrual Age of Menarche: 12 Review of Systems Const All systems reviewed & are unremarkable except as noted in HPI and below Physical Exam Vital Signs: Last Vital Signs Pulse 98 08/13/24 10:10 BP 110/78 08/13/24 10:10 Pulse Ox 99 08/13/24 10:10 Oxygen Delivery Method Room Air 08/13/24 10:10 BMI result Body Mass Index 33.7 Const General: cooperative, healthy appearing, comfortable, no acute distress and alert Orientation/consciousness: patient oriented x3 Limitations: no limitations Neck Neck: Yes normal visual inspection, Yes full ROM and Yes no lymphadenopathy Resp Effort & Inspection: normal respiratory effort and able to speak in complete sentences Auscultation: clear to auscultation bilaterally Cardio Jugular venous distension: no JVD Palpation: normal PMI Rate: regular rate Heart sounds: S1 normal heart sound present, S2 normal heart sound present, no click, no gallops, no murmurs and no rubs GI Inspection: Yes normal to inspection Palpation (GI): Soft to palpation and Tenderness to palpation present (GI) (Mild) in the epigastrum and in the RUQ Percussion: Yes normal to percussion Auscultation: normal bowel sounds Skin Other: No jaundice General skin exam: no rashes or lesions noted, elasticity normal and turgor normal Neuro General: patient oriented x3 Psych Appearance: grossly normal Mental Status: mental status grossly normal Speech and movement: Normal speech and movement present Affect: normal affect Assessment & Plan Assessment & Plan (1) Heartburn: Code(s): R12 - Heartburn Plan: Advised avoidance acidic foods, carbonated beverages, large meals, or anything to eat or drink within 2-3 hours of lying down. Consider trial famotidine for at least 2 weeks, for symptomatic management and then p.r.n. after that. Advised patient to follow up worsening or failure to resolve. (2) Gallbladder attack: Code(s): K82.9 - Disease of gallbladder, unspecified Plan: Patient is not currently suffering from a gallbladder attack, however has had increased attacks over the last 6 months. Advised patient to continue to follow up with her primary care provider and reviewed precautions for emergency evaluation. She would like to proceed evaluation from a general surgeon, and to facilitate this I have sent a message to her primary care provider in regards to her request. Advised patient to continue to avoid fatty foods. Plan See above for full details and plan. Coding Level of Care Code Est Pt Level 4 (52102) Diagnoses Heartburn R12 Gallbladder attack K82.9
[2024-08-13 10:10] VITALS: BP 110/78; PULSE 98; O2SAT 99; BMI 33.7
== END 2024-08-13 11:28 | disposition home or self-care (01) ==
PROVIDERS: Visit Provider Registered Nurse
DX: R12 Heartburn (principal); K82.9 Disease of gallbladder, unspecified

== ENCOUNTER → 2024-08-13 09:00 | Outpatient (BNVA) | payer OTHER, SELFPAY | DX: R12 Heartburn (principal); K82.9 Disease of gallbladder, unspecified | CPT/HCPCS: 99212 ==

== ENCOUNTER 2024-08-24 08:45 | Outpatient (REF) | payer OTHER, SELFPAY ==
--- NOTE | ~2024-08-24 | US_ITS ---
EXAMINATION: US ABDOMEN COMPLETE CLINICAL INFORMATION: Unspecified abdominal pain. COMPARISON: Renal ultrasound 07/30/2019. CT abdomen and pelvis 09/25/2015. Ultrasound abdomen complete 11/19/2013. TECHNIQUE: Real-time imaging of the abdominal viscera. FINDINGS: PANCREAS: Normal. ABDOMINAL AORTA: The proximal, mid, and distal segments are normal in caliber. INFERIOR VENA CAVA: Visualized portions are normal. LIVER: Normal. The liver is normal in size. The liver contour is normal. Parenchymal echogenicity is normal. No focal hepatic lesion. There is no intrahepatic biliary duct dilatation seen. GALLBLADDER: There are multiple shadowing gallstones. No gallbladder wall thickening or pericholecystic fluid is seen. COMMON BILE DUCT: Normal in caliber measuring 0.4 cm in diameter. RIGHT KIDNEY: Normal. No hydronephrosis. No renal calculi or focal parenchymal lesions. The kidney measures 12.2 cm in maximum dimension. LEFT KIDNEY: Normal. No hydronephrosis. No renal calculi or focal parenchymal lesions. The kidney measures 11.3 cm in maximum dimension. SPLEEN: Normal. The spleen measures 7.3 cm in maximum dimension. FREE FLUID: None. US/US abdomen complete IMPRESSION: There is marked cholelithiasis, without cholecystitis or choledocholithiasis noted. Electronically signed by: Talon Rudd MD 09/30/2024 11:23 AM EST
== END 2024-08-24 08:46 | disposition home or self-care (01) ==
LOC: HO.US 08:45
PROVIDERS: PCP Family Medicine; Visit Provider Internal Medicine
DX: R10.9 Unspecified abdominal pain (principal)
CPT/HCPCS: 76700

== ENCOUNTER 2024-09-17 12:18 | Outpatient (AMB) | payer OTHER, SELFPAY ==
--- NOTE | 2024-09-16 18:08 | A.OFFPC_ITS ---
Vital Signs 09/17/24 12:24 09/17/24 13:05 Height 5 ft 1 in Weight 183 lb 8 oz BMI 34.7 BP 128/74 Blood Pressure Location Lt brachial Position Sitting Respiration 14 Pulse 102 H 98 Pulse Source Pulse Oximeter Auscultation Pulse Oximetry (%) 98 Oxygen Delivery Method Room Air Intake Visit Reasons: Est. Care Intake Note: new patient to establish care Allergies latex [LATEX] Allergy (Unknown, Verified 09/17/24 12:41) SWELLING Medication List - Last Reconciled 09/17/24 by Charlotte Sorenson, CONCIERGE MANAGER- levonorgestrel (Mirena) intrauterine Tobacco use date assessed: 09/17/24 Dental Screening Dental Screen Date: 09/17/24 Did you have a dental visit in the last 12 months?: No Did you have a dental problem in the last 6 months where you did not have access to dental care?: No Was dental information given to patient?: Patient has dentist HPI HPI Comments History of Present Illness Details 33 y/o F with GERD, gallstones, anemia, Mild rightward nasal septal deviation, 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 Surgery: None Health Maintenance Pap 2019 Tdap 2022 Flu 09/17/24 Specialists [facility] Gen Surg counseling optho Here today as a new patient to est care and for a CPE Has gallstones w/ biliary colic sx. Attacks are more frequent now. Abd US 08/24/24 no read Having constipation with gallstones, using otc stool softeners to help. Tired all of the time despite enough sleep intentional 80 lb wt loss; now plateud. Wears glasses Has counselor for RONNIE/MDD Has knot in neck that causes headache, on the left side. it comes and goes. massages it and applies heat/cold which helps. Will take excedrin or motrin with which helps. UTD on eye exam Has some occassional tingling in her hands and toes; reports bilat great toes feel cold and turn blue at time. Worries about this as strong family hx of DM requiring amputation; she has personal hx of gestation dm. Plan Refer to Gen Surg Refer to Nurse Alberto for + Thrive screen cont counseling check screening labs RTO 1 year for CPE This note is constructed using voice recognition software. While every effort has been made to ensure accuracy in locomotive lubricating systems clerk, still errors may have been included Sometimes, these errors may affect the content or meaning of the given sentence . [facility] Medical History (Updated 09/17/24 @ 14:05 by Charlotte Sorenson [facility]) Anxiety and depression GERD (gastroesophageal reflux disease) state Hyperemesis gravidarum before end of 22 week gestation with carbohydrate depletion No known health problems Surgical History (Updated 09/17/24 @ 13:12 by Marycarmen Ron MA) No pertinent past surgical history Family History (Updated 09/17/24 @ 12:28 by Marycarmen Ron MA) Mother History of PCOS Hx of endometriosis Father Hx of colon cancer, stage II Substance abuse Brother No problems noted. Brother No problems noted. Sister No problems noted. 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: Yes Do you presently have visiting nurse or other home services: No Alcohol intake: never Patient Tobacco Use Status: Former Tobacco user Cigarettes Per Day: 10 Years Smoked: 7 e-Cigarette/Vaping Use: Never Used Second Hand Smoke Exposure: No service: No Current occupational status: unemployed Current occupational exposures/hazards: No Cognitive needs: No Hearing needs: Yes (left ear problem hearing) Vision needs: Yes (wear glasses) Female Reproductive History Menstrual Age of Menarche: 12 Questionnaire PHQ-9 Over the last 2 weeks, how often have you been bothered by any of the following problems? 1. Little interest or pleasure in doing things: nearly every day 2. Feeling down, depressed, or hopeless: more than half the days 3. Trouble falling or staying asleep, or sleeping too much: nearly every day 4. Feeling tired or having little energy: nearly every day 5. Poor appetite or overeating: nearly every day 6. Feeling bad about yourself - or that you are a failure or have let yourself or your family down: nearly every day 7. Trouble concentrating on things, such as reading the newspaper or watching television: more than half the days 8. Moving or speaking so slowly that other people could have noticed. Or the opposite - being so fidgety or restless that you have been moving around a lot more than usual: several days 9. Thoughts that you would be better off or of hurting yourself in some way: not at all Total score: 20 Depression Screening Interpretation: Positive Depression Screening Follow-up: Existing condition and In treatment Depression Screening Done: Yes 96970 - PHQ-9 Billing: Yes Source: Developed by Drs. Christian Ochoa, Usha Leyva, Michael Chakraborty and colleagues, with an educational fabrice from [employer]. Thrive Questionnaire Date Thrive assessed: 09/17/24 I am a: Patient What is your living situation today?: I have a place to live, but I am worried about losing it in the future Within the past 12 months, did the food you bought not last and you didn't have the money to get more?: Sometimes True Within the past 12 months, did you worry whether your food would run out before you got money to buy more?: Sometimes True Do you have trouble paying for medicines?: No Do you have trouble getting transportation to medical appointments?: No Do you have trouble paying your heating and electricity bill?: Yes Do you have trouble taking care of your child, family member or friend?: No Do you have trouble with day-to-day activities such as bathing, preparing meals, shopping, managing finances, etc.?: Yes Are you currently unemployed and looking for a job?: No Are you interested in more education?: No Please select the resources that you would like help with: Housing/Care Home, Food and Paying for medicine Currently or been in a relationship where the following occur: No concerns reported THRIVE Score: 4 AUDIT C Alcohol Use Questionnaire (AUDIT-C) 1. How often do you have a drink containing alcohol?: Never 3. How often do you have six or more drinks on one occasion?: Never Total Score: 0 Score Reviewed/Action Taken: Yes RONNIE-7 AMB Questionnaire RONNIE-7 Date RONNIE - 7 assessed: 09/17/24 Feeling nervous, anxious, or on edge: 2 = More than half the days Not being able to stop or control worryin = Nearly every day Worrying too much about different things: 3 = Nearly every day Trouble relaxin = More than half the days Being so restless that it is hard to sit still: 1 = Several days Becoming easily annoyed or irritable: 1 = Several days Feeling afraid as if something awful might happen: 3 = Nearly every day Total RONNIE-7 score (0-4 normal; 5-9 mild; 10-14 moderate; 15-21 severe): 15 Source: Developed by Drs. Christian Ochoa, Usha Leyva, Michael Chakraborty and colleagues, with an educational fabrice from [employer]. RONNIE-7 Assessment Billing RONNIE-7 Assessment Tool: RONNIE-7 Assessment 83079 Review of Systems Const Details: Constitutional: Denies fever. Skin: Denies rash. Eye: Denies eye pain. ENMT: Denies sore throat and nasal congestion. Respiratory: Denies shortness of breath and cough. Gastrointestinal: Denies nausea, vomiting Cardiovascular: Denies chest pain and syncope. Genitourinary: Denies dysuria. Musculoskeletal: Denies back pain and extremity pain. Neurologic: Denies confusion, and weakness. Psychiatric: Denies suicidal thoughts and substance abuse. Allergy/ Immunologic: Denies impaired immunity. Physical exam (Primary Care) Vital Signs: Last Vital Signs Pulse 98 09/17/24 13:05 Resp 14 09/17/24 12:24 BP 128/74 09/17/24 12:24 Pulse Ox 98 09/17/24 12:24 Oxygen Delivery Method Room Air 09/17/24 12:24 BMI result Body Mass Index 34.7 BMI Assessment/Plan discussion: High BMI High, discussed plan: lifestyle Tobacco/Smoking Status: Tobacco use Status Tobacco use date assessed 09/17/24 09/17/24 12:29 Patient Tobacco Use Status Former Tobacco user 09/17/24 12:28 e-Cigarette/Vaping Use Never Used 09/17/24 12:29 Are you ready to quit: Yes Tobacco cessation counseling provided: Yes Items discussed: Nicotine replacement, QuitWorks and Other Relapse Prevention: discussed the importance of a supportive environment, discussed extending NRT, discussed negative mood or depression after quitting, weight gain after smoking is common and discussed dietary, exercise and/or lifestyle changes Number of minutes spent counselin CPT code: 23827 - 4-10 Minutes PHQ-9: PHQ-9 Score PHQ-9: Total score 20 09/17/24 12:53 Depression Screening Interpretation: Positive Depression Screening Follow-up: Existing condition and In treatment Thrive Assessment: Date of Thrive Assessment Date Thrive assessed 09/17/24 09/17/24 12:53 Currently or been in a relationship where the following occur: No concerns reported Const Other: General: Well developed, well nourished, in no acute distress. Appears stated age. Head: Normocephalic, atraumatic. Eyes: Pupils are equal, round and reactive to light and accommodation. Conjunctivae are clear. Vision grossly normal. Ears: TMs clear AU, EACS WNL Nose: Patent, without discharge. Mouth: There are no ulcers or lesions noted. No inflammation, no post nasal drip, no plaques nor exudates. Neck: Supple, no adenopathy or thyromegaly. Lungs: Clear to auscultation bilaterally. No rales, rhonchi or wheeze noted. Good air flow in all [place]. Heart: Regular rate and rhythm. No murmurs, click, rubs or gallops are noted. Abdomen: Bowel sounds present in all quadrants. The abdomen is soft, nontender, with no masses or organomegaly noted. No hernias are noted. Musculoskeletal: Joints are nontender, without swelling, redness, or effusions. Range of motion is observed to be normal. Pulses: Peripheral pulses are equal and palpable bilaterally. Extremities: No clubbing, cyanosis nor edema is noted. Neurologic: Gait and station normal. Cranial Nerves 2-12 intact. Motor strength grossly symmetrical and intact. No sensory loss. Balance normal. Skin: No rashes, ulcers, or lesions noted. Turgor is good. Skin color is good. Hair and nails are without abnormalities. Psych: Normal eye contact, affect and mood appropriate, and normal interactions. Patient is alert and appropriate to context. Office Procedures Flu Questionnaire Does the patient have a severe egg allergy?: No Does the patient have severe life threatening allergies?: No Does the patient have a fever or illness today?: No Has the patient ever had Guillain-Herriman Syndrome?: No Has the patient ever had any past reaction to a flu shot?: No Immunizations Fluarix Triv 2908-2631 (PF) 45 mcg (15 mcg x 3)/0.5 mL IM syringe Performing Provider: SIRI Rosales Performing Location: [facility] Family [facility] Administered by: Mihaela Alejandre RN on 09/17/24 12:53 Dose Route Admin Location Dispensed Lot Number Expiration Date NDC Contact Center Rep 0.5 mL IM Right Deltoid 0.5 mL [id number] 05/17/25 [id number] [employer] VIS Given Date VIS Provided VIS Publication Date 09/17/24 Single Vaccine 21 Eligibility Eligibility Date Funding Source Not [facility] Eligible 09/17/24 Private Coding Level of Care Code New Pt Level 2 (47744) New Pt Prev Care 18-39yr(47334 Diagnoses Encounter for general adult medical examination with abnormal findings Z00.01 Gallstones K80.20 Laboratory exam ordered as part of routine general medical examination Z00.00 Tobacco dependence F17.200 BMI 34.0-34.9,adult Z68.34 Obesity, Class I, BMI 30-34.9 E66.811 Family hx of colon cancer Z80.0 Encounter for screening involving social determinants of health (SDoH) Z13.9 Mild anemia D64.9 Nasal septal deviation J34.2 Arthropathy of right temporomandibular joint M26.651 Laterality: right 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 Spinal osteoarthritis complication: without myelopathy or radiculopathy Moderate episode of recurrent major depressive disorder F33.1 Major depression episode severity: moderate RONNIE (generalized anxiety disorder) F41.1 Hx gestational diabetes Z86.32 History of pre-eclampsia Z87.59 Intermittent paresthesia of hand and foot R20.2 Additional Codes Vital Signs *Quality* - CPT code: 55659 - 4-10 Minutes ([id number]) RONNIE-7 Assessment Billing - RONNIE-7 Assessment Tool: RONNIE-7 Assessment 63217 ([id number]) Assessment & Plan Assessment & Plan (1) Encounter for general adult medical examination with abnormal findings: Code(s): Z00.01 - Encounter for general adult medical examination with abnormal findings Plan: . (2) Gallstones: Comment: us 08/24/24 at [facility] read pending Code(s): K80.20 - Calculus of gallbladder without cholecystitis without obstruction Category: Medical (3) Laboratory exam ordered as part of routine general medical examination: Code(s): Z00.00 - Encounter for general adult medical examination without abnormal findings Category: Medical Plan: . (4) Tobacco dependence: Code(s): F17.200 - Nicotine dependence, unspecified, uncomplicated Category: Medical Plan: Smoking Cessation How to Quit There are a lot of ways to quit smoking and many resources to help you. Family members, friends, and co-workers may be supportive or encouraging, but to be successful the desire and commitment to quit must be your own. Most people who have been able to successfully quit smoking made at least one unsuccessful attempt in the past. Try not to view past attempts to quit as failures, but rather as learning experiences. Stopping smoking or using smokeless tobacco is difficult, but anyone can do it. Know the symptoms to expect when you stop. Common symptoms include: ? An intense craving for nicotine ? Anxiety, tension, restlessness, frustration, or impatience ? Difficulty concentrating ? Drowsiness or trouble sleeping, as well as bad dreams and nightmares ? Drowsiness and trouble sleeping ? Headaches ? Increased appetite and weight gain ? Irritability or depression How severe your symptoms are depends on how long you smoked and how many cigarettes you smoked each day. Feel ready to quit? ? First and foremost, set a quit date and quit completely on that day. Before your quit date, you may begin reducing your cigarette use. But remember, there is no safe level of cigarette smoking. ? List the reasons why you want to quit. Include both short- and long-term benefits. ? Identify the times you are most likely to smoke. For example, do you tend to smoke when feeling stressed or down? When out at night with friends? While drinking coffee or alcohol? When bored? While driving? Right after a meal or sex? During a work break? While watching TV or playing cards? When you are with other smokers? ? Let all of your friends, family, and co-workers know of your plan to stop smoking and your quit date. Just being aware that they know what you're going through can be helpful, especially when you are grumpy. ? Get rid of all your cigarettes just before the quit date, and clean out anything that smells like smoke, such as clothes and furniture. Make a plan about what you will do instead of smoking at those times when you are most likely to smoke. ? Be as specific as possible. For example, drink tea instead of coffee -- tea may not trigger the desire for a cigarette. Or, take a walk when you feel stressed. ? Remove ashtrays and cigarettes from the car. Place pretzels or hard candies there instead. Pretend-smoke with a straw. ? Find activities that focus your hands and mind but are not taxing or fattening. Computer games, solitaire, knitting, sewing, and crossword puzzles may help. ? If you normally smoke after eating, find other ways to end a meal. Play a tape or CD, eat a piece of fruit, get up and make a phone call, or take a walk (a good distraction that also bautista calories). Make other changes in your lifestyle. ? Change your daily schedule and habits. Eat at different times or eat several small meals instead of three large ones. Sit in a different chair or even a different room. ? Satisfy your oral habits by eating celery or other low-calorie snack, chewing sugarless gum, or sucking on a cinnamon stick. ? Go to public places and restaurants where smoking is prohibited or restricted. ? Eat regular meals and don't eat too much candy or sweet things. ? Get more exercise. Take walks or ride a bike. Exercise helps relieve the urge to smoke. Set short-term quitting goals and reward yourself when you meet them. ? Every day, put the money you normally spend on cigarettes in a jar. Then buy something pleasurable after a period of time. ? Try not to think about all the days ahead you will need to avoid smoking. Take it one day at a time. ? Even one puff or one cigarette will make your desire for more cigarettes even stronger. However, it is normal to make mistakes. So even if you have one cigarette, you don't need to take the next one. Other tips to help you quit smoking and stick to it: ? Enroll in a smoking cessation program (hospitals, health departments, community centers, and work sites often offer programs). Learn about self-hypnosis or other techniques. ? Ask your health care provider about prescription medications that are safe and appropriate for you. ? Find out about nicotine patches, gum, and sprays. The [place] [employer]'s web site -- www.cancer.org -- is an excellent resource for smokers who are trying to quit, and the [employer] [place] [employer] can help some smokers kick the habit. Above all, don't get discouraged if you aren't able to quit smoking the first time. Nicotine addiction is a hard habit to break. Try something different next time. Develop new strategies, and try again. Many people take several attempts to finally kick the habit. (5) BMI 34.0-34.9,adult: Code(s): Z68.34 - Body mass index [BMI] 34.0-34.9, adult Category: Medical Plan: . (6) Obesity, Class I, BMI 30-34.9: Code(s): E66.811 - Obesity, class 1 Category: Medical Plan: . (7) Family hx of colon cancer: Comment: Dad dx age 55 Code(s): Z80.0 - Family history of malignant neoplasm of digestive organs Category: Medical Plan: . (8) Encounter for screening involving social determinants of health (SDoH): Code(s): Z13.9 - Encounter for screening, unspecified Category: Medical Plan: . (9) Mild anemia: Code(s): D64.9 - Anemia, unspecified Category: Medical Plan: . (10) Nasal septal deviation: Comment: Mild rightward nasal septal deviation, noted on imaging Code(s): J34.2 - Deviated nasal septum Category: Medical Plan: . (11) TMJ arthropathy: Comment: noted on imaging Code(s): M26.659 - Arthropathy of unspecified temporomandibular joint Category: Medical Qualifiers: Laterality: right Qualified Code(s): M26.651 - Arthropathy of right temporomandibular joint Plan: . (12) DJD (degenerative joint disease) of cervical spine: Comment: Mild degenerative disc disease at C4-C5 and C5-C6 noted on imaging Code(s): M47.812 - Spondylosis without myelopathy or radiculopathy, cervical region Category: Medical Qualifiers: Spinal osteoarthritis complication: without myelopathy or radiculopathy Qualified Code(s): M47.812 - Spondylosis without myelopathy or radiculopathy, cervical region (13) MDD (major depressive disorder), recurrent episode: Comment: . Code(s): F33.9 - Major depressive disorder, recurrent, unspecified Category: Medical Qualifiers: Major depression episode severity: moderate Qualified Code(s): F33.1 - Major depressive disorder, recurrent, moderate (14) RONNIE (generalized anxiety disorder): Code(s): F41.1 - Generalized anxiety disorder Category: Medical Plan: . (15) Hx gestational diabetes: Code(s): Z86.32 - Personal history of gestational diabetes Category: Medical (16) History of pre-eclampsia: Code(s): Z87.59 - Personal history of other complications of , childbirth and the puerperium Category: Medical (17) Intermittent paresthesia of hand and foot: Comment: An [id number] minutes was spent addressing the problem(s) noted at todays visit. This includes time spent before the visit reviewing the chart, time spent during the visit, and time spent after the visit on documentation Code(s): R20.2 - Paresthesia of skin Category: Medical Plan . Orders: Orders Complete Blood Count no Diff Today Z00.00 - Encounter for general adult medical examination without abnormal findings IRON PROFILE Today Z00.00 - Encounter for general adult medical examination without abnormal findings Microalbumin, Random (w Creat) Today Z00.00 - Encounter for general adult medical examination without abnormal findings TSH reflex Free T4 Today Z00.00 - Encounter for general adult medical examination without abnormal findings Vitamin B12 and Folate Today Z00.00 - Encounter for general adult medical examination without abnormal findings Influenza [id number] Immunization Today Z23 - Encounter for immunization Comprehensive Met. Panel Today Z00.00 - Encounter for general adult medical examination without abnormal findings Hemoglobin A1c Today Z00.00 - Encounter for general adult medical examination without abnormal findings Lipid Panel Today Z00.00 - Encounter for general adult medical examination without abnormal findings Vitamin D 25-OH Total Today Z00.00 - Encounter for general adult medical examination without abnormal findings Referrals General Surgery Referral K80.20 - Calculus of gallbladder without cholec ystitis without obstruction Nurse Navigator Referral Z13.9 - Encounter for screening, unspecified Patient Instructions: Walk-In Care (Urgent Care): We Make it Easy Walk-in for urgent medical issues such as: ? Seasonal Allergies ? Insect Bites ? Cough ? Diarrhea ? Acute Asthma Attacks ? Back, Knee or Joint Pain ? Ear Infection ? Fever without a Rash ? Headaches ? Nausea ? [place] [facility], Rash or Skin Irritation ? Sore Throat ? Sports Physicals ? Vomiting Most insurances are accepted. Patients do not need to be part of the [facility] to seek care at the walk-in clinic. Locations [address] [place] [address] ? [phone] [facility] in [place] provides services to ages 18 and over. Open Saturday-Saturday: 8 a.m. to 5 p.m. and Saturday: 9 a.m. to 3 p.m.* *Hours may vary due to staffing availability. To confirm Walk-In Care hours in [place], please call [phone]. [address] [place] [address] ? [phone] [facility] in [place] provides services to ages 12 and over. Open Saturday-Saturday: 8 a.m. to 5 p.m. Hours may vary due to staffing availability. To confirm Walk-In Care hours in [place], please call [phone]. LABORATORY SERVICES: [facility] Lab ? Primary Location [address] [place] [address] Saturday through Saturday 6:00 AM ? 5:00 PM Saturday 7:00 AM ? 11:00 AM* [phone] The [facility] Lab is centrally located near the front entrance of the [facility] for easy outpatient access. Convenient parking is provided for outpatients. *Hours may vary due to staffing availability. To confirm Laboratory hours for any location, please call [phone]. Offsite Location For your convenience, we offer offsite laboratory draw stations at the following locations: [address] [place] [address] ? [facility] [address], [address] Saturday through Saturday 7:30 AM ? 1:00 PM* [phone] *Hours may vary due to staffing availability. To confirm Laboratory hours for any location, please call [phone]. [place] ? [address] Saturday through Saturday 6:00 AM ? 3:30 PM* Saturday 6:30 AM ? 3 PM* [phone] *Hours may vary due to staffing availability. To confirm Laboratory hours for any location, please call [phone]. [address] [facility] Saturday through Saturday 7:30 AM ? 4:00 PM* [phone] *Hours may vary due to staffing availability. To confirm Laboratory hours for any location, please call [phone]. [address] [facility] Saturday through 9:00 AM ? 4:00 PM* *Hours may vary due to staffing availability. To confirm Laboratory hours for any location, please call [phone]. Appointments are not necessary. Walk-ins are welcome. Like all the departments throughout the [facility], our Lab undergoes frequent reviews to ensure the quality and accuracy of test results, and our staff takes special pride in its status as a nationally accredited facility. Patient Portal: ONE PATIENT. ONE RECORD. BETTER CARE. [facility] has a fully integrated, cutting- edge mobile electronic health information system that has revolutionized the way we care for our patients and manage our organization. This system improves communication and coordination enabling us to provide safe, higher-quality care, and an overall positive experience for staff and patients. Our first priority, as always, is to deliver the highest quality care possible. The system is running in the background supporting that priority. This portal is for all [facility] services and practices. If you are experiencing any technical difficulties with enrolling or logging into the Patient Portal please complete the [facility] Patient Portal Technical Support Form. [facility] now offers a new secure on-line interactive tool for patients to review their health information ? ?Patient Portal. This interactive web portal will enable patients and their families to take an active role in their care by providing easy, secure access to their health information via the internet. The Patient Portal provides patients with instant access to their health information, including laboratory results, medications, allergies, demographic information, visit history, and more. In addition to managing their own care, parents and health care proxies with authorized consent will appreciate the ability to access the records of those individuals for whom they provide care. Please note: if you wish to gain access (Proxy) to another patient?s portal, you will be required to come to the Medical Records Department in person at [facility]. Both the patient giving proxy access and the proxy will need to provide photo identification and complete the appropriate authorization. The Patient Portal also allows track their appointments online. The [facility] Patient Portal also saves patients time by allowing them to submit updates to their demographic and contact information prior to their visits. Portal email notifications will also alert patients to any new activity on their portal, such as test results and new appointments. In order to initially enroll in the [facility] Patient Portal, you will need to enter some required information including the following: * your [facility] Medical Record number * your personal home email address * name * date of Please note: In order to enroll in the [facility] Patient Portal, we need to have your email address on file in your electronic medical record. ?The email address needs to be specific for one person (yourself) in order for your Portal enrollment to be successful. ?You can update your email address in person with our Registration staff when you are registering for a hospital visit. ?Otherwise, you will need to come to the Health Information Management (Medical Records) Department at [facility]. ?We are open from Saturday ? Saturday from 7:30 a.m. ? 4:30 p.m. ?You will be required to present a photo id. Once you have successfully enrolled in the Patient Portal, you will receive a one-time user id and password for the Portal, sent to your email address. ?This will allow you to log into the Patient Portal within 99 hrs and reset your own logon id and password, and define personal security questions. ?Once your permanent login and password have been set, you can log into the [facility] Patient Portal at any time via the blue button above or from the Portal Logon button on any page of the [facility] website. [facility] encourage all of our patients to enroll in Patient Portal as it presents a valuable opportunity for patients and their families to actively participate in their care and stay healthy Welcome to [facility]. ?We look forward to working with you. Health screenings for women You should visit your health care provider from time to time, even if you are healthy. The purpose of these visits is to: Screen for medical issues Assess your risk for future medical problems Encourage a healthy lifestyle Update vaccinations and other preventive care services Help you get to know your provider in case of an illness Information Even if you feel fine, you should still see your provider for regular checkups. These visits can help you avoid problems in the future. For example, the only way to find out if you have high blood pressure is to have it checked regularly. High blood sugar and high cholesterol levels also may not have any symptoms in the early stages. A simple blood test can check for these conditions. There are specific times when you should see your provider or receive specific health screenings. The [place] Preventive Services Task Force publishes a list of recommended screenings. Below are screening guidelines for women ages 18 to 39. BLOOD PRESSURE SCREENING Your blood pressure should be checked at least once every 3 to 5 years if: Your blood pressure is in the normal range (top number less than 120 mm Hg and bottom number less than 80 mm Hg) You don't have risk factors for high blood pressure Ask your provider if you need your blood pressure checked more often if: The top number is 120 to 129 mm Hg or the bottom number is 70 to 79 mm Hg You have diabetes, heart disease, kidney problems, are overweight, or have cer tain other health conditions You have a first-degree relative with high blood pressure You are Black You had high blood pressure during a If the top number is 130 mm Hg or greater or the bottom number is 80 mm Hg or greater, this is considered stage 1 hypertension. Schedule an appointment with your provider to learn how you can reduce your blood pressure. Watch for blood pressure screenings in your area. Ask your provider if you can stop in to have your blood pressure checked. BREAST CANCER SCREENING Experts do not agree about the benefits of breast self-exams in finding breast cancer or saving lives. Talk to your provider about what is best for you. A screening mammogram is not recommended for most women under age 40. Your provider may discuss and recommend mammograms, MRI scans, or ultrasounds if you have an increased risk for breast cancer, such as: A mother or sister who had breast cancer at a young age (most often starting screening earlier than the age the close relative was diagnosed) You carry a high-risk genetic marker CERVICAL CANCER SCREENING Cervical cancer screening should start at age 21 years unless your provider advises otherwise. After the first test: Women ages 21 through 29 should have a Pap test every 3 years. Exoprts do not agree on whether HPV testing is recommended for this age group. Women ages 30 through 65 should be screened with either a Pap test every 3 years or the HPV test every 5 years or both tests every 5 years (called cotesting ). Women who have been treated for precancer (cervical dysplasia) should continue to have Pap tests for 20 years after treatment or until age 65, whichever is longer. If you have had your uterus and cervix removed (total hysterectomy), and you have not been diagnosed with cervical cancer or precancer (high grade cervical neoplasia), you do not need cervical cancer screening. CHOLESTEROL SCREENING Cholesterol screening should begin at: Age 45 for women with no known risk factors for coronary heart disease Age 20 for women with known risk factors for coronary heart disease Repeat cholesterol screening should take place: Every 5 years for women with normal cholesterol levels More often if changes occur in lifestyle (including weight gain and diet) More often if you have diabetes, heart disease, kidney problems, or certain other conditions DIABETES SCREENING You should be screened for diabetes starting at age 35 and then repeated every 3 years if you have no risk factors for diabetes. Screening may need to start earlier and be repeated more often if you have other risk factors for diabetes, such as: You have a first degree relative with diabetes. You are overweight or have obesity. You have high blood pressure, prediabetes, or a history of heart disease. Screening for diabetes should be done if you are planning to become and you are overweight and have other risk factors such as high blood pressure. DENTAL EXAM Go to the dentist once or twice every year for an exam and cleaning. Your dentist will evaluate if you need more frequent visits. EYE EXAM Have an eye exam every 5 to 10 years before age 40. If you have vision problems, have an eye exam every 2 years or more often if recommended by your provider. You should have an eye exam that includes an examination of your retina (back of your eye) at least every year if you have diabetes. IMMUNIZATIONS Commonly needed vaccines include: Flu shot: get one every year. COVID-19 vaccine: ask your provider what is best for you. Tetanus-diphtheria and acellular pertussis (Tdap) vaccine: have one at or after age 19 as one of your tetanus-diphtheria vaccines if you did not receive it as an adolescent. Tetanus-diphtheria: have a booster (or Tdap) every 10 years. Varicella vaccine: receive 2 doses if you never had chickenpox or the varicella vaccine. Hepatitis B vaccine: receive 2, 3, or 4 doses, depending on your exact circumstances. Measles, mumps, and rubella (MMR) vaccine: receive 1 to 2 doses if you are not already immune to MMR. Your provider can tell you if you are immune. Ask your provider about the human papillomavirus (HPV) vaccine if: You have not received the HPV vaccine in the past You have not completed the full vaccine series (you should catch up on this shot) Ask your provider if you should receive other immunizations if you have certain health problems that increase your risk for some diseases such as pneumonia. INFECTIOUS DISEASE SCREENING Women who are sexually active should be screened for chlamydia and gonorrhea up until age 25. Women 25 years and older should be screened for chlamydia and gonorrhea if at high risk. Screening for hepatitis C: All adults ages 18 to 79 should get a one-time test for hepatitis C. people should be screened at every . Screening for human immunodeficiency virus (HIV): All people ages 15 to 65 should get a one-time test for HIV. Depending on your lifestyle and medical history, you may also need to be screened for infections such as syphilis and HIV, as well as other infections. PHYSICAL EXAM All adults should visit their provider from time to time, even if they are healthy. The purpose of these visits is to: Screen for disease Assess your risk of future medical problems Encourage a healthy lifestyle Update your vaccinations and other preventive care services Maintain a relationship with a provider in case of an illness Your height, weight, and BMI should be checked at every exam. During your exam, your provider may ask you about: Depression and anxiety Diet and exercise Alcohol and tobacco use Safety issues, such as using seat belts, smoke detectors, and intimate partner violence Your medicines and risk for interactions SKIN SELF-EXAM Your provider may check your skin for signs of skin cancer, especially if you're at high risk, such as if you: Have had skin cancer before Have close relatives with skin cancer Have a weakened immune system OTHER SCREENING Talk with your provider about colon cancer screening if you have a strong family history of colon cancer or polyps, or if you have had inflammatory bowel disease or polyps yourself. Routine bone density screening of women under 40 is not recommended.
[2024-09-17 12:24] VITALS: BP 128/74; PULSE 102; RESP 14; O2SAT 98; BMI 34.7
[2024-09-17 13:05] VITALS: PULSE 98
== END 2024-09-17 13:05 | disposition home or self-care (01) ==
LOC: HO.HMCFM 12:19
PROVIDERS: PCP Nurse Practitioner Family; Visit Provider Nurse Practitioner Family
DX: Z00.00 Encounter for general adult medical examination without abnormal findings (principal); K80.20 Calculus of gallbladder without cholecystitis without obstruction; F17.210 Nicotine dependence, cigarettes, uncomplicated; F33.1 Major depressive disorder, recurrent, moderate; Z68.34 Body mass index [BMI] 34.0-34.9, adult; E66.811 Obesity, class 1; Z80.0 Family history of malignant neoplasm of digestive organs; D64.9 Anemia, unspecified; J34.2 Deviated nasal septum; M26.651 Arthropathy of right temporomandibular joint; M47.812 Spondylosis without myelopathy or radiculopathy, cervical region; F41.1 Generalized anxiety disorder

== ENCOUNTER → 2024-09-17 12:18 | Outpatient (BNVA) | payer OTHER, SELFPAY | PROVIDERS: PCP Nurse Practitioner Family; Visit Provider Nurse Practitioner Family | DX: Z00.01 Encounter for general adult medical examination with abnormal findings (principal); Z23 Encounter for immunization; K80.20 Calculus of gallbladder without cholecystitis without obstruction; E66.811 Obesity, class 1; D64.9 Anemia, unspecified; J34.2 Deviated nasal septum; M26.651 Arthropathy of right temporomandibular joint; M47.812 Spondylosis without myelopathy or radiculopathy, cervical region; F33.1 Major depressive disorder, recurrent, moderate; F41.1 Generalized anxiety disorder; R20.2 Paresthesia of skin; Z87.59 Personal history of other complications of pregnancy, childbirth and the puerperium; Z86.32 Personal history of gestational diabetes; F17.200 Nicotine dependence, unspecified, uncomplicated; Z71.6 Tobacco abuse counseling | CPT/HCPCS: 90471; 90656; 96127; 99212; 99395 ==

== ENCOUNTER 2024-09-17 13:10 | Outpatient (REF) | payer OTHER, SELFPAY ==
[2024-09-17 14:29] LABS: Hematocrit 38.7 % (37.0-47.0); Hemoglobin 12.8 g/dl (12.0-16.0); Mean Corpuscular HGB Conc 33.1 g/dl (31.0-35.0); Mean Corpuscular Hemoglobin 28.1 pg (27.0-33.0); Mean Corpuscular Volume 84.9 fL (80.0-98.0); Mean Platelet Volume 9.8 fL (9.4-12.3); Platelet Count 446 X10*3/uL (160-400); Red Blood Count 4.56 X10*6/uL (4.20-5.50); White Blood Count 7.6 X10*3/uL (4.8-10.8)
[2024-09-17 14:54] LABS: Estimated Average Glucose 103 mg/dL; Hemoglobin A1C 106.0904 umol/L; Hemoglobin A1c % 5.2 % (<6.0); Total Hemoglobin (HGBA1C) 3233.2413 umol/L
[2024-09-17 16:12] LABS: Alanine Aminotransferase 25 U/L (0-31); Alkaline Phosphatase 58 U/L (39-117); Anion Gap 14 (12-20); Aspartate Amino Transferase 27 U/L (5-31); Bilirubin Total 0.6 mg/dL (0.0-1.0); Blood Urea Nitrogen 18 mg/dL (9-16); Calcium 9.1 mg/dL (8.4-10.2); Carbon Dioxide 26 mmol/L (22-29); Chloride 105 mmol/L (96-108); Cholesterol 259 mg/dL (<200); Estimated Glomerular Filt Rate > 60; Glucose Random 82 mg/dL (60-115); HDL Cholesterol 43 mg/dL (>40); Iron 183 mcg/dL (30-160); LDL Cholesterol Calculated 182 mg/dL (<100); Percent Iron Saturation 49 % (15-50); Potassium 4.2 mmol/L (3.3-5.1); Sodium 141 mmol/L (135-145); Total Iron Binding Capacity 372 mcg/dL (228-428); Total Protein 7.4 g/dL (6.5-8.0); Triglycerides 172 mg/dL (<150); Unsaturated Iron Binding 189 ug/dL
[2024-09-17 16:35] LABS: Folate > 20.0 ng/mL (> or = 4.0); TSH reflex Free T4 0.92 uIU/mL (0.32-4.0); Vitamin B12 1075 pg/mL (200-900); Vitamin D 25-OH Total 31.5 ng/mL (>30)
[2024-09-17 18:36] LABS: Creatinine Urine 148.49 mg/dL; Microalbum/Creatinine Ratio Ur 5.3 ug/mg cr (<30)
== END 2024-09-17 13:11 | disposition home or self-care (01) ==
LOC: HO.WFDLDS 13:10
PROVIDERS: Visit Provider Nurse Practitioner Family
DX: Z00.00 Encounter for general adult medical examination without abnormal findings (principal)
CPT/HCPCS: 36415; 80053; 80061; 82043; 82306; 82570; 82607; 82746; 83036; 83540; 84443; 85027

== ENCOUNTER 2024-09-29 08:46 | Outpatient (AMB) | payer OTHER, SELFPAY ==
--- NOTE | 2024-09-29 08:59 | A.OFFVIS_ITS ---
Vital Signs 09/29/24 09:06 Height 5 ft 1 in Weight 184 lb BMI 34.8 BP 133/85 Blood Pressure Location Rt brachial Position Sitting Pulse 102 H Intake Visit Reasons: Calculus of GB Intake Note: Patient referred by pcp Charlotte Sorenson PA-C for calculus of gallbladder. Patient c/o: on and off pain attacks on rt side. Nausea, constipation. Takes stool softener. Mission [employer] Required: No Accompanied by: Self / Same As Patient Allergies latex [LATEX] Allergy (Unknown, Verified 09/29/24 09:04) SWELLING HPI Comments Details: Patient was a longstanding history of symptomatic gallstones/biliary colic. Her symptoms of right upper quadrant pain after meals. This is often with fatty, greasy, meals. Over the last year, her symptoms have progressed to the point where she is almost afraid to eat because of the onset of pain. Patient otherwise has no other GI issues or complaints. She is having regular b owel habits. She has never been jaundiced before. Chart was reviewed and patient evaluated. [facility] Medical History Anxiety and depression GERD (gastroesophageal reflux disease) state Hyperemesis gravidarum before end of 22 week gestation with carbohydrate deplet ion No known health problems Surgical History No pertinent past surgical history Family History Mother History of PCOS Hx of endometriosis Father Hx of colon cancer, stage II Substance abuse Brother No problems noted. Brother No problems noted. Sister No problems noted. Maternal Grandfather Hx of diabetes mellitus Maternal Grandmother Hx of diabetes mellitus Paternal Grandfather Hx of diabetes mellitus Paternal Grandmother Hx of diabetes mellitus Social History Household Members: Spouse Both parents involved: No Caregiver staying overnight: No Housing: Apartment Are you a primary home health care respiratory therapist to a significant other at home: Yes Do you presently have visiting nurse or other home services: No 75 years or older and lives alone: No Alcohol intake: never Patient Tobacco Use Status: Former Tobacco user Cigarettes Per Day: 10 Years Smoked: 7 e-Cigarette/Vaping Use: Never Used Second Hand Smoke Exposure: No service: No Current occupational status: unemployed Current occupational exposures/hazards: No Cognitive needs: No Hearing needs: Yes (left ear problem hearing) Vision needs: Yes (wear glasses) Female Reproductive History Menstrual Age of Menarche: 12 Physical Exam Vital Signs: Last Vital Signs Pulse 102 H 09/29/24 09:06 BP 133/85 09/29/24 09:06 BMI result Body Mass Index 34.8 Chest Other: Chest breath sounds bilaterally, HS 1 in 2 GI Other: Abdomen is soft, corpulent, benign Assessment & Plan Assessment & Plan (1) Gallstones: Comment: us 08/24/24 at [facility] read pending Code(s): K80.20 - Calculus of gallbladder without cholecystitis without obstruction Category: Surgical (2) Recurrent biliary colic: Code(s): K80.50 - Calculus of bile duct without cholangitis or cholecystitis without obstruction Category: Surgical Plan Risks, benefits, and alternatives of laparoscopic possible open cholecystectomy reviewed with the patient and included but not limited to bleeding, infection, recurrence of symptoms, numbness, pain, scarring, bowel or bile duct injury or leak and the patient wished to proceed. All questions answered. Arrangements were made for this. Coding Level of Care Code New Pt Level 5 (11522) Diagnoses Gallstones K80.20 Recurrent biliary colic K80.50
[2024-09-29 09:06] VITALS: BP 133/85; PULSE 102; BMI 34.8
== END 2024-09-29 09:56 | disposition home or self-care (01) ==
PROVIDERS: PCP Nurse Practitioner Family; Referring Provider Nurse Practitioner Family; Visit Provider Surgery
DX: K80.20 Calculus of gallbladder without cholecystitis without obstruction (principal); K80.50 Calculus of bile duct without cholangitis or cholecystitis without obstruction
CPT/HCPCS: 99204

== ENCOUNTER → 2024-09-29 08:46 | Outpatient (BNVA) | payer OTHER, SELFPAY | PROVIDERS: PCP Nurse Practitioner Family; Referring Provider Nurse Practitioner Family; Visit Provider Surgery | DX: K80.20 Calculus of gallbladder without cholecystitis without obstruction (principal); K80.50 Calculus of bile duct without cholangitis or cholecystitis without obstruction | CPT/HCPCS: 99202 ==

== ENCOUNTER 2024-10-30 11:26 | Outpatient (AMB) | payer OTHER, SELFPAY ==
--- NOTE | 2024-10-30 11:35 | MHC.PC.OV ---
Vital Signs 10/30/24 11:37 Height 5 ft 1 in Weight 187 lb BMI 35.3 BP 136/78 Blood Pressure Location Rt brachial Position Sitting Respiration 13 Pulse 100 Pulse Source Pulse Oximeter Pulse Oximetry (%) 97 Oxygen Delivery Method Room Air Intake Visit Reasons: preop for colonoscope Intake Note: preop clearance Chair Car Driver Required: No Allergies latex [LATEX] Allergy (Unknown, Verified 10/30/24 11:36) SWELLING Tobacco use date assessed: 09/17/24 Dental Screening Dental Screen Date: 09/17/24 HPI HPI Comments History of Present Illness Details 33 y/o F with GERD, gallstones, anemia, Mild rightward nasal septal deviation, 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 Surgery: None Health Maintenance Pap 2019 Tdap 2022 Flu 09/17/24 Specialists [facility] Gen Surg counseling optho History of Present Illness The patient is a 34-year-old female presenting with the need for preoperative clearance for a laparoscopic cholecystectomy due to gallstones. The patient has been experiencing significant and consistent abdominal pain attributed to gallstones, which occasionally presents with severe, stabbing intensity. This pain has persisted and intensified over the past week. In the past, the patient had an episode suspected to be a Transient Ischemic Attack (TIA) in 2022 while in the Emergency Department (ED) after experiencing left-sided body tingling sensations. Although initial imaging in the ED was normal, an MRI was recommended; however, it was not completed due to her need to return home for family responsibilities. The patient notes occasional tingling in the left arm and sometimes experiences twinges in her head, though she suspects these may be related to a pinched nerve. There have been no subsequent episodes like the initial ED visit. Also mentions she pulled her IUD on accident. General: Well developed, well nourished, in no acute distress. Appears stated age. Head: Normocephalic, atraumatic. Eyes: Pupils are equal, round and reactive to light and accommodation. Conjunctivae are clear. Vision grossly normal. Lungs: Clear to auscultation bilaterally. No rales, rhonchi or wheeze noted. Good air flow in all [place]. Heart: Regular rate and rhythm. No murmurs, click, rubs or gallops are noted. Neurologic: Gait and station normal. Cranial Nerves 2-12 intact. Motor strength grossly symmetrical and intact. No sensory loss. Balance normal Results - Initial imaging in ED in 2022 was normal - MRI: Recommended but not yet completed Plan - Order an MRI of the brain to rule out any cerebrovascular events prior to surgery. - Await insurance approval for the MRI, with follow-up anticipated in approximately six weeks to review results and provide surgical clearance. - Once MRI is completed, proceed with scheduling and planning of laparoscopic cholecystectomy, pending clearance. - Monitor for any further neurological symptoms; no immediate concerns based on current neurological examination. Stat refer to [facility] Patient was informed and verbally consented to the use of an ambient scribe for clinic note documentation during this visit. Discussion Notes During the consultation, I discussed with the patient the necessity of obtaining preoperative clearance due to past concerns of a possible TIA. The patient understands the importance of completing an MRI to ensure no cerebrovascular abnormalities are present before proceeding with surgery. I explained the process of insurance approval for the MRI and emphasized the importance of responding to scheduling communication promptly. We discussed the timeline for MRI completion and results review, estimating about a six-week period before surgical clearance could be determined. I reassured the patient that the neurological examination was normal and that I do not suspect significant cerebrovascular events, but emphasizing that the MRI is precautionary. The patient is agreeable to the plan and understands the steps ahead for her surgical preparation. Patient Instructions - Expect a call to schedule an MRI; ensure to respond promptly to avoid delays. - Report any new or worsening neurological symptoms immediately. - Follow up in approximately six weeks to discuss MRI results and surgical clearance. - Maintain current medical routines and support systems as needed during this period. Stat Refer to teacher learning disabled This note is constructed using voice recognition software. While every effort has been made to ensure accuracy in tube skiver, still errors may have been included Sometimes, these errors may affect the content or meaning of the given sentence . Total time spent caring for the patient today was 30 minutes. This includes time spent before the visit reviewing the chart, time spent during the visit, and time spent after the visit on documentation [facility] Medical History Anxiety and depression GERD (gastroesophageal reflux disease) state Hyperemesis gravidarum before end of 22 week gestation with carbohydrate depletion No known health problems Surgical History No pertinent past surgical history Family History Mother History of PCOS Hx of endometriosis Father Hx of colon cancer, stage II Substance abuse Brother No problems noted. Brother No problems noted. Sister No problems noted. Maternal Grandfather Hx of diabetes mellitus Maternal Grandmother Hx of diabetes mellitus Paternal Grandfather Hx of diabetes mellitus Paternal Grandmother Hx of diabetes mellitus Social History Household Members: Spouse Both parents involved: No Caregiver staying overnight: No Housing: Apartment Are you a primary acute care nurse practitioner to a significant other at home: Yes Do you presently have visiting nurse or other home services: No 75 years or older and lives alone: No Alcohol intake: never Patient Tobacco Use Status: Former Tobacco user Cigarettes Per Day: 10 Years Smoked: 7 e-Cigarette/Vaping Use: Never Used Second Hand Smoke Exposure: No service: No Current occupational status: unemployed Current occupational exposures/hazards: No Cognitive needs: No Hearing needs: Yes (left ear problem hearing) Vision needs: Yes (wear glasses) Female Reproductive History Menstrual Age of Menarche: 12 Questionnaire PHQ-9 Over the last 2 weeks, how often have you been bothered by any of the following problems? 19370 - PHQ-9 Billing: Patient declined-do not bill Source: Developed by Drs. Christian Ochoa, Usha Leyva, Michael Chakraborty and colleagues, with an educational fabrice from [employer]. Thrive Questionnaire Date Thrive assessed: 10/30/24 I am a: Patient What is your living situation today?: I have a place to live, but I am worried about losing it in the future Within the past 12 months, did the food you bought not last and you didn't have the money to get more?: Sometimes True Within the past 12 months, did you worry whether your food would run out before you got money to buy more?: Sometimes True Do you have trouble paying for medicines?: No Do you have trouble getting transportation to medical appointments?: No Do you have trouble paying your heating and electricity bill?: Yes Do you have trouble taking care of your child, family member or friend?: No Do you have trouble with day-to-day activities such as bathing, preparing meals, shopping, managing finances, etc.?: No Are you currently unemployed and looking for a job?: No Are you interested in more education?: Yes Please select the resources that you would like help with: Utilities THRIVE Score: 4 AUDIT C Alcohol Use Questionnaire (AUDIT-C) 3. How often do you have six or more drinks on one occasion?: Never Total Score: 0 RONNIE-7 AMB Questionnaire RONNIE-7 Date RONNIE - 7 assessed: 09/17/24 Source: Developed by Drs. Christian Ochoa, Usha Leyva, Michael Chakraborty and colleagues, with an educational fabrice from [employer]. Physical exam (Primary Care) Vital Signs: Last Vital Signs Pulse 100 10/30/24 11:37 Resp 13 10/30/24 11:37 BP 136/78 10/30/24 11:37 Pulse Ox 97 10/30/24 11:37 Oxygen Delivery Method Room Air 10/30/24 11:37 BMI result Body Mass Index 35.3 Tobacco/Smoking Status: Tobacco use Status Tobacco use date assessed 09/17/24 10/30/24 11:39 Patient Tobacco Use Status Former Tobacco user 10/30/24 11:39 e-Cigarette/Vaping Use Never Used 10/30/24 11:39 Thrive Assessment: Date of Thrive Assessment Date Thrive assessed 10/30/24 10/30/24 11:39 Coding Level of Care Code Est Pt Level 4 (88162) Complex EM visit Add On G2211 Diagnoses Arm paresthesia, left R20.2 Facial paresthesia R20.2 Displacement of intrauterine contraceptive device, initial encounter T83.32XA Device complication type: mechanical Mechanical complication type: displacement Encounter type: initial encounter Assessment & Plan Assessment & Plan (1) Arm paresthesia, left: Code(s): R20.2 - Paresthesia of skin Category: Medical (2) Facial paresthesia: Code(s): R20.2 - Paresthesia of skin Category: Medical (3) IUD complication: Code(s): T83.9XXA - Unspecified complication of genitourinary prosthetic device, implant and graft, initial encounter Category: Medical Qualifiers: Device complication type: mechanical Mechanical complication type: displacement Encounter type: initial encounter Qualified Code(s): T83.32XA - Displacement of intrauterine contraceptive device, initial encounter Plan: . Plan . Orders: Orders MR head/brain wo con Today R20.2 - Paresthesia of skin Referrals TELECOMMUNICATIONS CABLE JOINTER Referral T83.9XXA - Unspecified complication of genitourinary prosthetic device, implant and graft, initial encounter
[2024-10-30 11:37] VITALS: BP 136/78; PULSE 100; RESP 13; O2SAT 97; BMI 35.3
== END 2024-10-30 11:51 | disposition home or self-care (01) ==
PROVIDERS: PCP Nurse Practitioner Family; Visit Provider Nurse Practitioner Family
DX: R20.2 Paresthesia of skin (principal); T83.32XA Displacement of intrauterine contraceptive device, initial encounter

== ENCOUNTER → 2024-10-30 11:26 | Outpatient (BNVA) | payer OTHER, SELFPAY | PROVIDERS: PCP Nurse Practitioner Family; Visit Provider Nurse Practitioner Family | DX: Z01.818 Encounter for other preprocedural examination (principal); K80.20 Calculus of gallbladder without cholecystitis without obstruction; R20.2 Paresthesia of skin | CPT/HCPCS: 99212 ==

== ENCOUNTER 2024-11-04 19:23 | Outpatient (REF) | payer OTHER, SELFPAY | END 2024-11-04 19:24 | disposition home or self-care (01) | LOC: HO.MRI 19:23 | PROVIDERS: PCP Nurse Practitioner Family; Visit Provider Nurse Practitioner Family | DX: R20.2 Paresthesia of skin (principal) | CPT/HCPCS: 70551 ==

== ENCOUNTER → 2024-12-16 14:05 | Outpatient (BNVA) | payer OTHER, SELFPAY | PROVIDERS: PCP Nurse Practitioner Family; Visit Provider Nurse Practitioner Family ==

== ENCOUNTER 2025-01-07 06:17 | Day surgery (SDC) | payer OTHER, SELFPAY ==
[2024-12-25 09:28] VITALS: BMI 34.8
--- NOTE | 2024-12-25 12:59 | P.CONAN_ITS ---
Documented by User: Brittney Carver NP 12/25/24 13:05 HPI - Anesthesia Eval Consult details Narrative: 34yo F for Cholecystectomy Laparoscopic, 01/07/25 Medically optimized per PCP. Recent MRI nml, symptoms of parasthesia likely r/t c-spine disc disease TMJ - locking symptoms if opened too wide, will release with movement Front upper tooth broken. Planned repair after surgery. PMFSH Active Problems Active Problems: All Active Problems Pre-operative clearance (Acute) Arm paresthesia, left (Acute) Facial paresthesia (Acute) IUD complication (Acute) Recurrent biliary colic (Acute) Intermittent paresthesia of hand and foot (Acute) History of pre-eclampsia (Acute) Hx gestational diabetes (Acute) RONNIE (generalized anxiety disorder) (Acute) MDD (major depressive disorder), recurrent episode (Acute) DJD (degenerative joint disease) of cervical spine (Acute) TMJ arthropathy (Acute) Nasal septal deviation (Acute) Mild anemia (Acute) Encounter for screening involving social determinants of health (SDoH) (Acute) Family hx of colon cancer (Acute) Obesity, Class I, BMI 30-34.9 (Acute) BMI 34.0-34.9,adult (Acute) Tobacco dependence (Acute) Laboratory exam ordered as part of routine general medical examination (Acute) Gallstones (Acute) Cervical paraspinal muscle spasm (Acute) Past Medical History Medical History Gestational diabetes Facial paresthesia Paresthesia of left arm Tobacco dependence Mild anemia Nasal septal deviation TMJ arthropathy DJD (degenerative joint disease) Pre-eclampsia Anxiety and depression GERD (gastroesophageal reflux disease) Family History Family History Mother History of PCOS Hx of endometriosis Father Hx of colon cancer, stage II Substance abuse Brother No problems noted. Brother No problems noted. Sister No problems noted. Maternal Grandfather Hx of diabetes mellitus Maternal Grandmother Hx of diabetes mellitus Paternal Grandfather Hx of diabetes mellitus Paternal Grandmother Hx of diabetes mellitus Surgical History Surgical History No pertinent past surgical history Social History Social History Household Members: Spouse Housing: Apartment Housing Other:: [facility] Are you a primary health care analyst to a significant other at home: No Do you presently have visiting nurse or other home services: No Alcohol intake: never Patient Tobacco Use Status: Current everyday Tobacco user Tobacco use type: Cigarette Cigarettes Per Day: 10 Years Smoked: 7 e-Cigarette/Vaping Use: Never Used Second Hand Smoke Exposure: No Use of substances other than those prescribed or required for medical reasons: Yes Substance Use Type Other:: uses a few times per [id number] to hold 3-5 days pre-op Substance Use Frequency: Weekly Have you been hit, kicked, punched, or otherwise hurt by someone within the past year? If so, by whom?: No Spiritual Healthcare Practices: none Rastafari Healthcare Practices: none Cultural Healthcare Practices: none Are you DNR?: No Advance Directives: No ( is primary contact) Advance Directives Information Provided: Yes (as above noted) Advance Directives on File: No Recently lost weight without trying: No Eating poorly because of decreased appetite: Yes Nutrition Risks: No Nutritional Risk Patient : No FDLMP: 12/21/24 : No Poor oral hygiene: No (broken tooth right upper front) service: No Current occupational status: unemployed Current occupational exposures/hazards: No Cognitive needs: No Hearing needs: Yes (left ear problem hearing) Vision needs: Yes (wear glasses) Meds Allergies Allergy/AdvReac Type Severity Reaction Status Date / Time latex [LATEX] Allergy Intermediate SWELLING Verified 12/25/24 09:26 Home Medications ?Medication ?Instructions ?Recorded ?Confirmed ?Last Taken ?Type multivitamin 1 tab PO QAM 12/25/24 12/25/24 Unknown History Exam Height,Weight and Vital Signs: Height 5 ft 1 in Weight 83.461 kg Pertinent Lab Results Pertinent Lab Results: Laboratory Tests 09/17/24 13:12 WBC 7.6 Hgb 12.8 Hct 38.7 Plt Count 446 H D Sodium 141 Potassium 4.2 Chloride 105 Carbon Dioxide 26 BUN 18 H Creatinine 0.66 Narrative Narrative: EKG 2022 Vent. Rate : 073 BPM Atrial Rate : 073 BPM P-R Int : 208 ms QRS Dur : 084 ms QT Int : 372 ms P-R-T Axes : 056 034 041 degrees QTc Int : 409 ms Normal sinus rhythm Normal ECG When compared with ECG of 05-JUN-2022 04:54, No significant change was found Assessment and Plan Assessment Anesthesia Assessment: Chart Reviewed Documented by User: Renetta Blackmon MD 01/07/25 09:06 COUNTS INCLUDE 234 BEDS AT THE [facility] Past Medical History Medical History Gestational diabetes Facial paresthesia Paresthesia of left arm Tobacco dependence Mild anemia Nasal septal deviation TMJ arthropathy DJD (degenerative joint disease) Pre-eclampsia Anxiety and depression GERD (gastroesophageal reflux disease) Family History Family History Mother History of PCOS Hx of endometriosis Father Hx of colon cancer, stage II Substance abuse Brother No problems noted. Brother No problems noted. Sister No problems noted. Maternal Grandfather Hx of diabetes mellitus Maternal Grandmother Hx of diabetes mellitus Paternal Grandfather Hx of diabetes mellitus Paternal Grandmother Hx of diabetes mellitus Surgical History Surgical History No pertinent past surgical history History of Problems with Anesthesia: No Social History Social History Household Members: Spouse Housing: Apartment Housing Other:: [facility] Are you a primary health care analyst to a significant other at home: No Do you presently have visiting nurse or other home services: No Alcohol intake: never Patient Tobacco Use Status: Current everyday Tobacco user Tobacco use type: Cigarette Cigarettes Per Day: 10 Years Smoked: 7 e-Cigarette/Vaping Use: Never Used Second Hand Smoke Exposure: No Use of substances other than those prescribed or required for medical reasons: Yes Substance Use Type Other:: uses a few times per [id number] to hold 3-5 days pre-op Substance Use Frequency: Weekly Have you been hit, kicked, punched, or otherwise hurt by someone within the past year? If so, by whom?: No Spiritual Healthcare Practices: none Rastafari Healthcare Practices: none Cultural Healthcare Practices: none Are you DNR?: No Advance Directives: No ( is primary contact) Advance Directives Information Provided: Yes (as above noted) Advance Directives on File: No Recently lost weight without trying: No Eating poorly because of decreased appetite: Yes Nutrition Risks: No Nutritional Risk Patient : No FDLMP: 12/21/24 : No Poor oral hygiene: No (broken tooth right upper front) service: No Current occupational status: unemployed Current occupational exposures/hazards: No Cognitive needs: No Hearing needs: Yes (left ear problem hearing) Vision needs: Yes (wear glasses) Meds Allergies Allergy/AdvReac Type Severity Reaction Status Date / Time latex [LATEX] Allergy Intermediate SWELLING Verified 12/25/24 09:26 Home Medications ?Medication ?Instructions ?Recorded ?Confirmed ?Last Taken ?Type multivitamin 1 tab PO QAM 12/25/24 12/25/24 Unknown History Exam Airway Mallampati Class: II TM Dist: >3cm Neck ROM: Full Loose/Missing/Broken Teeth: No Heart: RRR Lungs: CTA Assessment and Plan Assessment Anesthesia Assessment: Anesthesia Plan Discussed Final Anesthetic Review History of Problems with Anesthesia: No NPO: Yes ASA Class: II Final Preanesthetic Review: Meds/Allgs Chart Reviewed, Consent Obtained/Reviewed and Anes Risks/Benef Reviewed Patient Risk: Low Procedure Risk: Intermediate Anesthetic Plan Anesthetic Plan: MAC: Disposition: Standard PACU
--- NOTE | 2025-01-06 09:48 | MHC.SHP ---
Pre-Procedural Eval Section A - 24 Hr Update-Section A only Date of Service: 01/07/25 The patient is an INPATIENT: No Changes since office visit: No Cold of Flu in the past 2 weeks, No New Medical Problems, No Changes in Medication and No Patient answered all questions Section B - Complete if H&P > 30 days Chief Complaint: Calculus of bile duct without cholangitis or bartolome Allergies: Allergies Allergy/AdvReac Type Severity Reaction Status Date / Time latex [LATEX] Allergy Intermediate SWELLING Verified 12/25/24 09:26 Review of Systems Sugical H&P ROS: Negative: Constitution, Cardiovascular, Respiratory, Neurological, Psychiatric, Hem-Onc, Allergic/Immunologic, Gastrointestinal, Genitourinary, Musculoskeletal, Integumentary, Endocrine and Eyes/Ears/Nose/Throat Exam Surgical H&P Exam: Normal: HEENT, Normal: Heart, Normal: Lungs, Normal: Extremities, Normal: Abdomen, Normal: Skin and Normal: Neurological Plan I have reviewed the history and physical and performed a pertinent physical examination on my patient. No changes have occurred unless specified. Time Spent With Patient Time: Total time managing care of this patient today ____ minutes.
[2025-01-07] VITALS (7 sets, daily range): BP systolic 126–144; BP diastolic 75–94; PULSE 82–99; RESP 18; TEMP 36.1–36.6; O2SAT 97–100
[2025-01-07] MEDS: Lactated Ringers 1,000 ML 100 ML IVCONT (07:21)
[2025-01-07 07:24] LABS: UPreg QC Valid YES; Urine Pregnancy NEGATIVE (NEGATIVE)
--- NOTE | 2025-01-07 10:08 | W.PM.OPN ---
Operative Note Operative Note Date of Service: 01/07/25 Narrative: Preoperative diagnosis: [] Symptomatic gallbladder Postop diagnosis: [] The same Procedure [] laparoscopic cholecystectomy Surgeon: [] Pablo Electrolytic Etcher: [] Chad Type of Anesthesia: [] General Indication for surgery: [] Gallbladder with omental adhesions to it. Moderately intrahepatic gallbladder. Corpulent abdomen Findings: Patient brought to the operating room, placed on operative table supine position, after an adequate level of general anesthesia was induced, the patient's abdomen was prepped and draped in usual sterile fashion. Using a supraumbilical curvilinear incision, Jolly technique was used to insufflate abdominal cavity to 15 mm of CO2. Upper midline and right subcostal ports were placed under direct laparoscopic view, and the patient placed in reverse Trendelenburg position, and tilted to the left. Findings were as noted above. Gallbladder was grasped using laparoscopic graspers and retracted superiorly and laterally. Soft omental adhesions were swept off the gallbladder and the hilum was approached. Cystic artery and cystic duct were each identified, circumferentially skeletonized, traced directly into the gallbladder, and critical view obtained. Each was clipped proximally x2, distally x1, and transected. The gallbladder which was moderately intrahepatic, was then cauterized from the gallbladder fossa using Bovie. Specimen placed in an Endo-Catch bag, and retrieved through the umbilical port. Abdominal cavity was copiously irrigated and secured hemostasis. All ports removed under direct laparoscopic view. Wounds were closed in the following manner; umbilical wound had its fascia reapproximated using interrupted 0 Vicryl sutures. Skin wounds were closed using subcuticular 4-0 Vicryl sutures followed by Steri-Strips and sterile dressings. Wounds were infiltrated 0.5% Marcaine at completion. Sponge, needle, and instrument counts reported correct. Patient tolerated the procedure well and emerged from anesthesia stable condition. EBL minimal
== END 2025-01-07 11:28 | disposition home or self-care (01) ==
PROVIDERS: Nurse Practitioner; PCP Nurse Practitioner Family; Visit Provider Surgery
PROC: 0FT44ZZ Resection of Gallbladder, Percutaneous Endoscopic Approach (ICD-10-PCS; CPT 47562; principal; 2025-01-07 09:10)
DX: K80.10 Calculus of gallbladder with chronic cholecystitis without obstruction (principal); Z80.0 Family history of malignant neoplasm of digestive organs; K82.8 Other specified diseases of gallbladder; E65 Localized adiposity; Q44.1 Other congenital malformations of gallbladder; K21.9 Gastro-esophageal reflux disease without esophagitis; D64.9 Anemia, unspecified; M26.651 Arthropathy of right temporomandibular joint; M50.321 Other cervical disc degeneration at C4-C5 level; M50.322 Other cervical disc degeneration at C5-C6 level; R20.0 Anesthesia of skin; F41.1 Generalized anxiety disorder; Z87.891 Personal history of nicotine dependence; Z91.040 Latex allergy status
CPT/HCPCS: 47562; 81025; 88304; J0131; J0690; J1100; J1885; J2003; J2250; J2405; J2704; J2795; J3010

== ENCOUNTER → 2025-01-07 06:17 | Outpatient (BNV) | payer OTHER, SELFPAY | PROVIDERS: PCP Nurse Practitioner Family; Visit Provider Surgery | DX: K80.50 Calculus of bile duct without cholangitis or cholecystitis without obstruction (principal) | CPT/HCPCS: 47562 ==

== ENCOUNTER 2025-01-18 11:46 | Outpatient (AMB) | payer OTHER, SELFPAY ==
--- NOTE | 2025-01-18 11:47 | MHC.OFFVIS ---
Intake Visit Reasons: s/p Cholecystectomy Laparoscopic Intake Note: Patient here s/p laparoscopic cholecystectomy. Reports incision healing well. Patient c/o: steri strips fell off yesterday. Taking pain meds as needed. Surgery: 01-07-2025 Retail Office Associate Required: No Accompanied by: Self / Same As Patient Allergies latex [LATEX] Allergy (Intermediate, Verified 01/18/25 11:50) SWELLING HPI Comments Details: Patient presents status post laparoscopic cholecystectomy. She is doing well. He is starting a diet. Having regular bowel habits. She is increasing her activity level. She has minimal incisional discomfort. Pathology was benign [facility] Medical History Gestational diabetes Facial paresthesia Paresthesia of left arm Tobacco dependence Mild anemia Nasal septal deviation TMJ arthropathy DJD (degenerative joint disease) Pre-eclampsia Anxiety and depression GERD (gastroesophageal reflux disease) Surgical History (Updated 01/18/25 @ 12:30 by Irwin Shah MD) Hx laparoscopic cholecystectomy (01/07/25) No pertinent past surgical history Family History Mother History of PCOS Hx of endometriosis Father Hx of colon cancer, stage II Substance abuse Brother No problems noted. Brother No problems noted. Sister No problems noted. Maternal Grandfather Hx of diabetes mellitus Maternal Grandmother Hx of diabetes mellitus Paternal Grandfather Hx of diabetes mellitus Paternal Grandmother Hx of diabetes mellitus Social History Household Members: Spouse Both parents involved: No Caregiver staying overnight: No Housing: Apartment Housing Other:: [facility] Are you a primary care nurse rn to a significant other at home: No Do you presently have visiting nurse or other home services: No 75 years or older and lives alone: No Alcohol intake: never Patient Tobacco Use Status: Current everyday Tobacco user Tobacco use type: Cigarette Cigarettes Per Day: 10 Years Smoked: 7 e-Cigarette/Vaping Use: Never Used Second Hand Smoke Exposure: No service: No Current occupational status: unemployed Current occupational exposures/hazards: No Cognitive needs: No Hearing needs: Yes (left ear problem hearing) Vision needs: Yes (wear glasses) Female Reproductive History Menstrual Age of Menarche: 12 Physical Exam Eyes Other: Anicteric GI Other: Abdomen is soft. All wounds clean dry and intact Assessment & Plan Assessment & Plan (1) Status post laparoscopic cholecystectomy: Code(s): Z90.49 - Acquired absence of other specified parts of digestive tract Category: Medical Plan Patient was been given local wound instructions, and will otherwise follow-up p.r.n.. All questions answered. Coding Level of Care Code Global (58639) Diagnoses Status post laparoscopic cholecystectomy Z90.49
--- OUTSIDE RECORDS SUMMARY | 2025-01-18 13:58 | XMS_ITS | Data Portability ---
Author Organization [place] - [facility], [facility] Address [id number] [place] [address] Assessment No assessment recorded. Plan of Treatment Reminders Order Date Submit Date Provider Last Modified By Organization Details Last Modified Time Details Appointments None recorded. Lab RPR (rapid plasma reagin), serum 2015 016 [facility], [address] [place] [address], [address] 6 14:35:26 HIV 1+2 AB + HIV 1 p24 Ag, qualitativ e immunoassa y, serum 2015 016 [facility], [address] [place] [address], 6 14:35:26 rubella igg Ab screen, serum 2015 016 [facility], [address] [place] [address], 6 16:16:44 HBsAg (hepatitis B surface Ag), confirmati on, serum 2015 016 [facility], [address] [place] [address], 6 16:16:44 CBC w/ auto diff 2015 016 [facility], [address] [place] [address], 6 16:16:44 antibody screen, serum or plasma 2015 016 [facility], [address] [place] [address], 6 16:16:44 abo group + rh type, blood 2015 016 [facility], [address] [place] [address], [facility] 6 16:16:44 culture, urine 2015 016 [facility], [address] [place] [address], [facility] 6 10:06:19 hepatitis B surface Ab, qualitativ e, serum 2015 016 [facility], [address] [place] [address], [facility] 6 16:16:45 HbA1c (hemoglobi n A1c), blood 2015 016 [facility], [address] [place] [address], [facility] 6 16:16:45 hemoglobin (Hb) electropho resis, blood 2015 016 [facility], [address] [place] [address], [facility] 6 16:16:45 glucose tolerance test, gestationa l, 1-hour 2015 016 [facility], [address] [place] [address], [facility] 6 16:16:45 test, urine 2015 016 rberke In-Office Order, Internal Use Only DO Not Attach Compendium DO Not Attach Compendium, Do Not Delete/merge, [id number] 6 13:29:42 culture, urine 2015 016 [facility], [address] [place] [address], [facility] 6 16:13:07 urinalysis , dipstick 2015 016 rberke In-Office Order, Internal Use Only DO Not Attach Compendium DO Not Attach Compendium, Do Not Delete/merge, [id number] 6 13:29:42 pap, LB + HPV 2015 016 [facility], [address] [place], [address] 6 13:23:03 Referral None recorded. Procedures None recorded. Surgeries None recorded. Imaging None recorded. Medication Orders CitraNattg Almazan(ir on carb-fum) 27 mg iron-1 mg-50 mg-260 mg capsule 2015 016 rosleine [id number], [address], [place], [address], 6 13:29:42 Patient TargetsNo targets recorded. Patient Instructions Encounter Date Encounter Id Patient Instructions Last Modified By Organization Details Last Modified Time 02/20/2016 [id number] self breast exam education [email or web address] Not available 02/20/2016 16:50:05 Reason for Referral None Reported. Results Created Date Observation Date Name Description Value Unit Range Abnormal Flag Note LastModifiedBy Organization Detail LastModifiedTime 02/20/20 16 02/20/2016 urina lysis , dipst ick Interpretati on negati ve Not Available In-Office Order Internal Use Only DO Not Attach Compendium DO Not Attach Compendium, Do Not Delete/merge, [id number] 02/20/2016 10:00:42 02/20/20 16 02/20/2016 urina lysis , dipst ick Leukocytes Negati ve Not Available In-Office Order Internal Use Only DO Not Attach Compendium DO Not Attach Compendium, Do Not Delete/merge, [id number] 02/20/2016 10:00:42 02/20/20 16 02/20/2016 urina lysis , dipst ick Nitrite negati ve Not Available In-Office Order Internal Use Only DO Not Attach Compendium DO Not Attach Compendium, Do Not Delete/merge, [id number] 02/20/2016 10:00:42 02/20/20 16 02/20/2016 urina lysis , dipst ick Urobilinogen Normal : 0.2 mg/dl Not Available In-Office Order Internal Use Only DO Not Attach Compendium DO Not Attach Compendium, Do Not Delete/merge, [id number] 02/20/2016 10:00:42 02/20/20 16 02/20/2016 urina lysis , dipst ick Protein Negati ve Not Available In-Office Order Internal Use Only DO Not Attach Compendium DO Not Attach Compendium, Do Not Delete/merge, 02/20/2016 10:00:42 02/20/20 16 02/20/2016 urina lysis , dipst ick pH 5.0 Not Available In-Office Order Internal Use Only DO Not Attach Compendium DO Not Attach Compendium, Do Not Delete/merge, 02/20/2016 10:00:42 02/20/20 16 02/20/2016 urina lysis , dipst ick Blood Negati ve Not Available In-Office Order Internal Use Only DO Not Attach Compendium DO Not Attach Compendium, Do Not Delete/merge, 02/20/2016 10:00:42 02/20/20 16 02/20/2016 urina lysis , dipst ick Ketone Negati ve Not Available In-Office Order Internal Use Only DO Not Attach Compendium DO Not Attach Compendium, Do Not Delete/merge, 02/20/2016 10:00:42 02/20/20 16 02/20/2016 urina lysis , dipst ick Bilirubin Negati ve Not Available In-Office Order Internal Use Only DO Not Attach Compendium DO Not Attach Compendium, Do Not Delete/merge, 02/20/2016 10:00:42 02/20/20 16 02/20/2016 urina lysis , dipst ick Glucose Negati ve Not Available In-Office Order Internal Use Only DO Not Attach Compendium DO Not Attach Compendium, Do Not Delete/merge, 02/20/2016 10:00:42 02/20/20 16 02/20/2016 urina lysis , dipst ick Appearance Clear Not Available In-Offi ce Order Internal Use Only DO Not Attach Compendium DO Not Attach Compendium, Do Not Delete/merge, 02/20/2016 10:00:42 02/20/20 16 02/20/2016 urina lysis , dipst ick Color Yellow Not Available In-Office Order Internal Use Only DO Not Attach Compendium DO Not Attach Compendium, Do Not Delete/merge, 02/20/2016 10:00:42 02/20/20 16 02/20/2016 pregn monik test, urine Result positi ve Not Available In-Office Order Internal Use Only DO Not Attach Compendium DO Not Attach Compendium, Do Not Delete/merge, [id number] 02/20/2016 09:52:37 02/20/20 16 02/21/2016 pap, LB + HPV report GYNEC OLOGI CLOTILDE CYTOL OGY REPOR T THINP REP PAP TEST WITH HPV REFLE X AND GC/CH LAMYD IA SPECI MEN ADEQU ACY: SATIS FACTO RY FOR EVALU ATION ; ENDOC ERVIC AL/TR ANSFO RMATI ON ZONE COMPO NENT PRESE NT. INTER PRETA TION: LO W GRADE SQUAM OUS INTRA EPITH ELIAL LESIO N COMME NT: In addit ion to Low Grade Squam ous Intra epith elial Lesio n, a few cells are sugge stive of High Grade Squam ous Intra epith elial Lesio n. 11691 . Elect jesus jenkins Di d Out: MD EMIL LILLY, [place]( CP) CLINI CLOTILDE INFOR MATIO N: LMP: NI Z32.0 1 Numbe r of vials /slid es submi tted: 1 Speci men sourc e: CERVI X/END OCERV IX Abnor mal Pap Date: NI CLINI CLOTILDE RESUL TS: Lab Acc #: [id number] Test Name: Chlam ydia by DNA(C HT1) Resul t: Negat richi Ref Range : NEG Lab Acc #: [id number] Test Name: GC by DNA(N GN1) Resul t: Negat richi Ref Range : NEG Not FDA appro mahesh for GC/Ch lamyd ia in femal e urine speci mens. Test valid ated by[facility] T for detec ting GC/Ch lamyd ia from this sourc e. Autom ated presc reeni ng of all liqui d based speci mens is perfo rmed by the ThinP rep Imagi ng [place] other peng state d. The Pap test is a scree sade test with an inher ent false negat richi rate. Testi ng perfo rmed at [facility] , [address], [place] [address] CLIA [id number] CL-PO [id number] 7. Not Available [facility] [address] [place], [address] 02/21/2016 16:10:07 04/02/20 16 04/04/2016 cultu re, urine source Unspec ified Urine Not Available [facility] [address] [place], [address] 04/04/2016 10:06:19 04/02/20 16 04/04/2016 cultu re, urine culture Steri le or less than 1000 col/m L. Not Available [facility] [address] [place], [address] 04/04/2016 10:06:19 04/02/20 16 04/04/2016 cultu re, urine status FINAL 04/04 Not Available [facility] [address] [place], [address] 04/04/2016 10:06:19 03/05/20 16 ultra sound , OB trans vagin al No observ ation record ed. rberke In-Office Order Internal Use Only DO Not Attach Compendium DO Not Attach Compendium, Do Not Delete/merge, [id number] 03/06/2016 01:31:10 Result Notes None recorded. Problems Name Problem SNOMED Code Status Onset Date Resolution Date Notes Provider Name and Address Organization Details Recorded Time Uterine size for dates discrepa ncy 778797261 Active ROGER SMART MD [address] [place] [address], [address] Floor, [place], [address] [place] [address] 6 10:11:33 Past pregnanc y history of prematur e labor 587320498 Completed Carrie Higuera null, [facility] 7 13:15:12 Multiple pregnanc y 93189741 Completed Carrie Higuera null, [facility] 7 13:15:12 Gestatio nal hyperten tyrel Completed Carrie Higuera null, [facility] 7 13:15:12 Seizure disorder 993015562 Completed FOB states that patient has been having seizure like movements . Advised to f/u with neurology for evaluatio n. Carrie Higuera null, [facility] 7 13:15:12 Pregnanc y-induce d hyperten tyrel 09166723 Active first only. ROGER SMART MD [address], [address], [place], [address], [facility] 6 10:11:33 prematur e rupture of membrane s 782263440 Active second - twins at 32 weeks had SROM. No labor and was induced at 36 weeks ROGER SMART MD [address], [address], [place], [address], [facility] 6 10:11:33 Smoker 72379409 Active ROGER SMART MD [address], [address], [place], [address], [facility] 6 10:11:33 Problem Notes None recorded. Procedures Surgical History Date Name Laterality Status Provider Name and Address Organization Details Recorded Time 04/02/2016 P4P-OB (0500F) completed ROGER SMART MD [address], [address] [place] [address], [place], [address], [facility] 04/02/2016 10:10:51 02/20/2016 [id number] completed ROGER SMART MD [address], [address] [facility], [place], [address], [facility] 02/20/2016 10:28:19 02/20/2016 [id number] completed ROGER SMART MD [address], [address] [facility], [place], [address], [facility] 02/20/2016 10:28:19 02/20/2016 [id number] completed ROGER SMART MD [address], [address], [place], [address], [facility] 02/20/2016 10:28:19 Imaging Results Imaging Date Name Status LastModified by Organization Details LastModified Time 03/05/2016 ultrasound, OB transvaginal completed rberke In-Office Order Internal Use Only DO Not Attach Compendium DO Not Attach Compendium, Do Not Delete/merge, [id number] 03/06/2016 01:31:10 Procedure Notes None recorded. Medical Equipment None Reported. Allergies No known drug allergies Medications Name Sig Start Date Stop Date Status Note LastModified by Organization Details LastModified Time CitraNatal Dry Prong(iron carb-fum) 27 mg iron-1 mg-50 mg-260 mg capsule Take 1 capsule every day by oral route as directed for 90 days. 016 active Not Available Not Available Not Avai lable Vitals Date Recorded Body weight Body height Body mass index (BMI) Systolic blood pressure Diastolic blood pressure Provider Name and Address Organization Details Last Updated DateTime 02/20/2016 54438.88 163 g 167.64 cm 32.1 kg/m2 120 mm[Hg] 80 mm[Hg] [facility] 6 10:00:41 Date Recorded Body weight Systolic blood pressure Diastolic blood pressure Provider Name and Address Organization Details Last Updated DateTime 04/02/2016 48509.2892 6 g 100 mm[Hg] 60 mm[Hg] [facility] 04/02/2016 09:41:34 Social History None recorded. Functional Status None recorded. Mental Status None recorded. Family History Nothing Reported. Medical History Condition Response Other N Blood clots N Breast Cancer N Colon cancer N Benign breast disease N Depression N Lung Disease N Defects or Inherited Disease N Anesthesia Complications N Headaches/Migraines N Have you ever been on isolation N Anxiety Disorder N Arthritis N HSV N Infertility N Interstitial Cystitis N Acid Reflux (GERD) N Cancer N Stroke N Endometriosis N Fibromyalgia N HIV N Spina Bifida N Heart Problems N Sexual Dysfunction N Autoimmune disorder N Thyroid Problems N Kidney or Bladder Problems N GI Problems N Eating Disorder N Anemia N Multiple Sclerosis N Psychiatric Illness N Diabetes N Ovarian Cancer N Blood Transfusions N Bladder disease N History of MRSA N Abnormal Uterine Bleeding N Hyperlipidemia N BrCa positive N Abuse/Domestic Violence N Diverticulitis N Asthma N Hepatitis N Hypertension N Osteoporosis N Thrombophilias N Gynecological HistoryNo gynecological history recorded. Obstetrics History GPAL:G 4 P 2 0 0 3 Type Value Multiple Births 1 Full Term 2 Living 3 Total 4 Immunizations Vaccine Type Date Status Note Provider Nam e and Address Organization Details Recorded Time Influenza, split virus, quadrivalent, preservative 5 completed ROGER SMART MD [address] [facility], 3rd Floor, [place], [address], [place] [facility] 02/20/2016 10:26:23 Past Encounters Encounter ID Performer Location Encounter Start Date Encounter Closed Date Diagnosis/Indication Diagnosis SNOMED-CT Code Diagnosis ICD10 Code Diagnosis Note [id number] ROGER SMART MD [facility] [address] [place] [address] 02/20/2016 09:50:56 02/20/2016 10:23:26 test positive 184362482 Z32.01 Gynecologi c examination 81373450 Z01.411 vitamins to be taken. F/u u/s in 2 weeks to verify viability. RTO in 4 weeks for IOB. Screening for Chlamydia trachomatis 107286949 Z11.8 Advised by paris from [facility] to undergo chlamydia and GC testing. Will be performed on pap cells. Smoker 08365550 F17.200 Patient was counseled regarding her smoking history. Options for reducing or trying to quit smoking were discussed. 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 Encouraged to work on strategies to try to achieve zero smoking while . [id number] Kalpana Early [facility] [address] [place] [address] 04/02/2016 09:18:14 04/02/2016 10:32:50 Routine care 062803293 Z34.81 Health Concerns Section Related Observation LastModified by Organization Detai ls LastModified Time None Recorded Concern Status LastModified by Organization Details LastModified Time None Recorded Advance Directives Directive None Recorded Payers Encounter Date Sequence Insurance Name Policy Number Policy Moore Covered Member ID Moore Member ID Guarantor Name 02/20/2016 1 [place] Lou Patel [id number] Lou Patel 04/02/2016 1 [place] Lou Patel [id number] Lou Patel Notes Date Note Type Note Provider Name and Address Organization Details Recorded Time 02/20/2016 text/html [facility] Annual GYNReported bypatient.Menstrua l cycle:Normal menses Urinary symptoms:No hematuria; No incontinence Vulva:No genital lesion Vagina:Normal vaginal discharge Breast:No breast pain; No breast lump; No nipple discharge Current Contraception:used paragard but stopped as she thought it was causing ovarian cysts. Sexual complaints:No sexual complaints; No pain during intercourse; Normal libido Psychological symptoms:No depression; No anxiety; No PMDD Preventive measures:Encourage self breast examination; Encourage regular exercise; Encourage no tobacco use; Followed with yearly pap smears ROGER SMART MD [address] [place] [address], [address] Floor, [place], [address], [place] [facility] 02/20/2016 10:31:10 OBGyn Episode Ob Episode Information Episode Created Date Number of Fetuses Patient Bloodtype Patient rh Status Prepregnancy Weight lbs Domestic Partner Domestic Partner Phone Father Name Data Officer Status 04/02/20 16 1 190 CLOSED Fetus Data First Name Last Name Admitted to NICU Weight (g) Sex Living Outcome Pediatric Complications Fetus ID Race Codes Race Delivery Type [id number] Problems Problem Notes Problem Name Start Date End Date Resolution Snomed Code Not e Seizure disorder [id number] FOB states that patient has been having seizure like movements. Advised to f/u with neurology for evaluation. Past history of premature labor 382355118 Multiple 34525387 Gestational hypertension 418483767 Ed Calculation Initial Ed Date Initial Exam Date Initial Exam Provider Initial Ultrasound Date Last Menstrual Period Date Ultra Sound Weeks Gestation 10/26/2016 04/02/2016 03/05/2016 01/20/2016 6 Eighteen To Twenty Week Ed Update Ultra Sound Date Fundal Height At Umbil Quickening Date Ultra Sound Latest Weeks Gestation Final Ed Confirmed By Final Ed Confirmed Date Final Ed Date Ultra Sound Latest Days Gestation 0 10/26/20 16 0 Pre- Flowsheet Flowsheet Date 04/02/2016 Tavares Score Blood Edema Fundus Height Fundus Units Glucose Ketones Leukocytes Nitrite Labor Signs Protein Cervic Dilation Cervic Effacement Cervic Station 11 cm none none neg Type Weight in lbs Pre/Post Dialysis Refused 198.949685113157 BP Diastolic BP Location Tested BP Systolic BP Type 60 100 Fetus Heart Rate Present A 160 Present Fetus Movement A No Comments Nuchal papers to pt. Desires nuchal scan. No problems some nausea. Urine culture sent as 1st one never received. Pap and cultures done at [facility]. Needs colpo 2nd trimester for LGSIL. Will hold off on CF until we see if we can get records from previous . Flowsheet Date 04/26/2016 Tavares Score Blood Edema Fundus Height Fundus Units Glucose Ketones Leukocytes Nitrite Labor Signs Protein Cervic Dilation Cervic Effacement Cervic Station Type Weight in lbs Pre/Post Dialysis Refused BP Diastolic BP Location Tested BP Systolic BP Type Fetus Heart Rate Present Fetus Movement Comments pt informed come in for firs t tri labs and do glucose, Did not make NT appt on 04/18/16. Advised MD would discuss quad at next viist due to dating is too late now Menstrual History Last Menstrual Date Menses Monthly On Bcp Conception Prior Menses Frequency Hcg Plus Date Menarche Onset Age 0301/20/2016 true false 30 Genetic Screening And Infection History Question Response Note Patient's Age Will Be 35 Years Or Older At Estim ated Date of Delivery false Thalassemia (Indonesian, Kinyarwanda, Mediterranean, Or Background): MCV < 80 false Neural Tube Defect (Meningomyelocele, Spina Bifi da, Or Anencephaly) false Congenital Heart Defect false Down Syndrome false Renny-Sachs (eg, Congregational, Cajun, Amharic-Fremont) f alse Delma Disease false Sickle Cell Disease Or Trait () false Hemophilia Or Other Blood Disorders false Muscular Dystrophy false Cystic Fibrosis false [place]'s Ch[place] false Mental Retardation/Autism false If Yes, Was Person Tested For Fragile X? false Other Inherited Genetic Or Chromosomal Disorder false Maternal Metabolic Disorder (eg, Type 1 Diabetes , PKU) false Patient Or Baby's Father Had A Child With Defects Not Listed Above false Recurrent Loss, Or A Stillbirth false Medications (including Suppl ements, Vitamins, Herbs, OTC Drugs), Illicit/Recreational Drugs, Alcohol false If Yes, Agent(s) And Strength/Dosage false Any Other Genetic History false Live With Someone With TB Or Exposed To TB false Patient Or Partner Has History Of Genital Herpes false Rash Or Viral Illness Since Last Menstrual Perio d false History Of STD, Gonorrhea, Chlamydia, HPV, Syphi lis false Other Infection History false Familial Dysautonomia (Ashkenazi Congregational) false Spinal Muscular Atrophy false Parkinson Disease false Delivery Information Delivery Date Delivery Type Labor Anesthesia Weeks Gestation Incision Type Labor Labor Length Hrs Delivered By Post Complications Tubal Sterilization Discharge Date Comments Discharge Information Feeding Method Contraceptive Method Maternal HG B and HCT Levels Ob Episode Information Episode Created Date Number of Fetuses Patient Bloodtype Patient rh Status Prepregnancy Weight lbs Domestic Partner Domestic Partner Phone Father Name Data Officer Status 04/02/20 16 1 CLOSED Fetus Data First Name Last Name Admitted to NICU Weight (g) Sex Living Outcome Pediatric Complications Fetus ID Race Codes Race Delivery Type , Induced [id number] Ed Calculation Initial Ed Date Initial Exam Date Initial Exam Provider Initial Ultrasound Date Last Menstrual Period Date Ultra Sound Weeks Gestation 0 Eighteen To Twenty Week Ed Update Ultra Sound Date Fundal Height At Umbil Quickening Date Ultra Sound Latest Weeks Gestation Final Ed Confirmed By Final Ed Confirmed Date Final Ed Date Ultra Sound Latest Days Gestation 0 0 Menstrual History Last Menstrual Date Menses Monthly On Bcp Conception Prior Menses Frequency Hcg Plus Date Menarche Onset Age Delivery Information Delivery Date Delivery Type Labor Anesthesia Weeks Gestation Incision Type Labor Labor Length Hrs Delivered By Post Complications Tubal Sterilization Discharge Date Comments 0 Discharge Information Feeding Method Contraceptive Method Maternal HG B and HCT Levels Ob Episode Information Episode Created Date Number of Fetuses Patient Bloodtype Patient rh Status Prepregnancy Weight lbs Domestic Partner Domestic Partner Phone Father Name Data Officer Status 04/02/20 16 1 CLOSED Fetus Data First Name Last Name Admitted to NICU Weight (g) Sex Living Outcome Pediatric Complications Fetus ID Race Codes Race Delivery Type 2353.00 85 [id number] Vaginal Delivery Ed Calculation Initial Ed Date Initial Exam Date Initial Exam Provider Initial Ultrasound Date Last Menstrual Period Date Ultra Sound Weeks Gestation 0 Eighteen To Twenty Week Ed Update Ultra Sound Date Fundal Height At Umbil Quickening Date Ultra Sound Latest Weeks Gestation Final Ed Confirmed By Final Ed Confirmed Date Final Ed Date Ultra Sound Latest Days Gestation 0 0 Menstrual History Last Menstrual Date Menses Monthly On Bcp Conception Prior Menses Frequency Hcg Plus Date Menarche Onset Age Delivery Information Delivery Date Delivery Type Labor Anesthesia Weeks Gestation Incision Type Labor Labor Length Hrs Delivered By Post Complications Tubal Sterilization Discharge Date Comments 4 34 true Twins Seizures Discharge Information Feeding Method Contraceptive Method Maternal HG B and HCT Levels Ob Episode Information Episode Created Date Number of Fetuses Patient Bloodtype Patient rh Status Prepregnancy Weight lbs Domestic Partner Domestic Partner Phone Father Name Data Officer Status 04/02/20 16 1 CLOSED Fetus Data First Name Last Name Admitted to NICU Weight (g) Sex Living Outcome Pediatric Complications Fetus ID Race Codes Race Delivery Type 3458.63 9 [id number] Vaginal Delivery Ed Calculation Initial Ed Date Initial Exam Date Initial Exam Provider Initial Ultrasound Date Last Menstrual Period Date Ultra Sound Weeks Gestation 0 Eighteen To Twenty Week Ed Update Ultra Sound Date Fundal Height At Umbil Quickening Date Ultra Sound Latest Weeks Gestation Final Ed Confirmed By Final Ed Confirmed Date Final Ed Date Ultra Sound Latest Days Gestation 0 0 Menstrual History Last Menstrual Date Menses Monthly On Bcp Conception Prior Menses Frequency Hcg Plus Date Menarche Onset Age Delivery Information Delivery Date Delivery Type Labor Anesthesia Weeks Gestation Incision Type Labor Labor Length Hrs Delivered By Post Complications Tubal Sterilization Discharge Date Comments 3 39 HTN Seizures Discharge Information Feeding Method Contraceptive Method Maternal HG B and HCT Levels Ob Episode Information Episode Created Date Number of Fetuses Patient Bloodtype Patient rh Status Prepregnancy Weight lbs Domestic Partner Domestic Partner Phone Father Name Data Officer Status 04/02/20 16 1 CLOSED Fetus Data First Name Last Name Admitted to NICU Weight (g) Sex Living Outcome Pediatric Complications Fetus ID Race Codes Race Delivery Type M [id number] Vaginal Delivery Ed Calculation Initial Ed Date Initial Exam Date Initial Exam Provider Initial Ultrasound Date Last Menstrual Period Date Ultra Sound Weeks Gestation 0 Eighteen To Twenty Week Ed Update Ultra Sound Date Fundal Height At Umbil Quickening Date Ultra Sound Latest Weeks Gestation Final Ed Confirmed By Final Ed Confirmed Date Final Ed Date Ultra Sound Latest Days Gestation 0 0 Menstrual History Last Menstrual Date Menses Monthly On Bcp Conception Prior Menses Frequency Hcg Plus Date Menarche Onset Age Delivery Information Delivery Date Delivery Type Labor Anesthesia Weeks Gestation Incision Type Labor Labor Length Hrs Delivered By Post Complications Tubal Sterilization Discharge Date Comments 4 34 true twins Discharge Information Feeding Method Contraceptive Method Maternal HG B and HCT Levels
== END 2025-01-18 11:59 | disposition home or self-care (01) ==
PROVIDERS: PCP Nurse Practitioner Family; Visit Provider Surgery
DX: Z90.49 Acquired absence of other specified parts of digestive tract (principal)
CPT/HCPCS: 99024

== ENCOUNTER → 2025-01-18 11:46 | Outpatient (BNVA) | payer OTHER, SELFPAY | PROVIDERS: PCP Nurse Practitioner Family; Visit Provider Surgery | DX: Z90.49 Acquired absence of other specified parts of digestive tract (principal) | CPT/HCPCS: 99212 ==

== ENCOUNTER → 2025-11-17 19:54 | Outpatient (BNV) | payer OTHER, SELFPAY | PROVIDERS: Emergency Provider Emergency Medicine; PCP Nurse Practitioner Family; Visit Provider Physician Assistant | DX: S82.201A Unspecified fracture of shaft of right tibia, initial encounter for closed fracture (principal); S82.401A Unspecified fracture of shaft of right fibula, initial encounter for closed fracture | CPT/HCPCS: 99223; 99499 ==